=== PATIENT | male | born 1965 | race African-American/Black ===

== ENCOUNTER 2016-07-08 17:43 | Emergency (ER) | payer MEDICAID ==
[2016-07-08] MEDS ORDERED: NS 0.9% 1000 ML* 1,000 ML IV ONE (18:23)
[2016-07-08] MEDS ORDERED: levETIRAcetam IV* 500 MG in NS 0.9% 100 ML* 100 ML IVPB ONE (18:54)
[2016-07-08 19:27] LABS: ALT 19 U/L (7-52); Albumin 4.6 g/dL (3.2-5.2); Alkaline Phosphatase 75 U/L (34-104); Blood Urea Nitrogen 12 mg/dL (6-24); Calcium 9.6 mg/dL (8.6-10.3); Chloride 103 mmol/L (101-111); EGFR African American 82.4 (>60); EGFR Non-African American 64.1 (>60); Glucose 115 mg/dL (70-100); Sodium 138 mmol/L (133-145); Total Protein 7.6 g/dL (6.4-8.9)
[2016-07-08 19:28] LABS: CO2 Carbon Dioxide 14 mmol/L (22-32)
[2016-07-08] MEDS ORDERED: NS 0.9% 1000 ML* 2,000 ML IV ONE (19:29)
[2016-07-08 19:50] LABS: Hematocrit 50 % (42-52); Hemoglobin 16.4 g/dl (14.0-18.0); Mean Corpuscular HGB Conc 33 g/dl (31-36); Mean Corpuscular Hemoglobin 32 pg (27-31); Mean Corpuscular Volume 98 fL (80-94); Mean Platelet Volume 9 um3 (7.4-10.4); Red Blood Count 5.12 10^6/ul (4.0-5.4); Red Cell Distribution Width 14 % (10.5-15); White Blood Count 14.4 10^3/ul (3.5-10.8)
[2016-07-08 19:54] LABS: Add Diff/Slide Review? Slide Review Added; Comments Flag Yes
--- NOTE | 2016-07-08 20:20 | ED ---
Devin Carreno Adam, scribed for Solo Pena MD on 07/08/16 at 1819 . Neurological HPI - HPI Summary HPI Summary: Pt is a 51 year old male who reports having 2 seizures today. Between 14:00 and 15:00 he states that he fell in his apartment and believes it was a seizure. Afterwards he was riding on the bus and he states that he had a second seizure. Pt also c/o a LUEVANO which does not typically occur after he has a seizure. He also c/o chronic pain in his neck and lower back which have been causing him difficulty sleeping. Pt takes Keppra (1500 mg in the AM), methotrexate, and Humira for arthritis. - History of Current Complaint Chief Complaint: ED Stated Complaint: SEIZURES Time Seen by Provider: 07/08/16 18:12 Hx Obtained From: Patient Onset/Duration: Sudden Onset, Started hours ago, Resolved Timing: Intermittent Episodes Lasting: - Seconds Onset Severity: Moderate Current Severity: None Number of Seizures: 2 Pain Intensity: 8 Pain Scale Used: 0-10 Numeric Seizure Character: Generalized Aggravating: Unknown Alleviating: Spontanious Resolution Associated Signs and Symptoms: Positive: Headache, Seizure Related Hx: Seizure - Allergy/Home Medications Allergies/Adverse Reactions: Allergies Allergy/AdvReac Type Severity Reaction Status Date / Time Pregabalin [From Lyrica] Allergy Intermediate Headache, Verified 04/17/16 18:15 Heart palpitations Penicillins [PCN] Allergy Unknown Unknown Verified 04/17/16 18:15 Reaction Details PMH/Surg Hx/FS Hx/Imm Hx Endocrine/Hematology History: Denies: Hx Anticoagulant Therapy, Hx Bone Marrow Disease, Hx Diabetes, Hx Sickle Cell Disease, Hx Thyroid Disease, Hx Anemia, Hx Unexplained Bleeding Cardiovascular History: Denies: Hx Hypertension, Hx Pacemaker/ICD Respiratory History: Denies: Hx Asthma, Hx Chronic Obstructive Pulmonary Disease (COPD), Hx Pulmonary Embolism, Hx Sleep Apnea GI History: Reports: Other GI Disorders - 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, SURGERY 03/2010, [facility] Denies: Hx Jaundice, Hx Ulcer History: Reports: Other Problems/Disorders - S/P RIGHT NEPHRECTOMY 06/09/05 - LEFT KIDNEY FUNCTIONS WELL Denies: Hx Renal Disease Musculoskeletal History: Reports: Hx Arthritis, Hx Back Problems, Hx Orthopedic Injury - 2009 C7 neck fx, Other Musculoskeletal History - ankylosing spondylitis , DRAINED FLUID IN LEFT KNEE IN 09/2014 AT [facility] [place] ER Denies: Hx Bursitis, Hx Tendonitis Sensory History: Reports: Hx Contacts or Glasses, Hx Vision Problem Denies: Hx Hearing Aid Opthamlomology History: Reports: Hx Contacts or Glasses, Hx Vision Problem Neurological History: Reports: Hx Seizures - SINCE October- UNDER CONTROL WITH MEDICATION, 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 metastatic liver tumor. w/ radioablation Hx Chemotherapy: No Hx Radiation Therapy: No - Surgical History Surgery Procedure, Year, and Place: C7-FX WITH TITANIUM PLATE. 2005- [facility] nephrectomy for renal cell [place], 2008-[place] benign pulmonary nodule, 2009 -[facility] (right) cervical median branch block, 2009- [facility] metastatic liver tumor. w/radioablation Hx Anesthesia Reactions: No - Immunization History Date of Tetanus Vaccine: unk Infectious Disease History: Denies: Hx Hepatitis, Hx Human Immunodeficiency Virus (HIV), Traveled Outside the in Last 30 Days - Family History Known Family History: Positive: Hypertension, Renal Disease - Renal transplant ( father) - Social History Occupation: Disabled Lives: Alone Alcohol Use: Rare Hx Substance Use: Yes Substance Use Comment - Amount & Last Used: MORPHINE, XANAX Hx Tobacco Use: No Smoking Status (MU): Never Smoked Tobacco Have You Smoked in the Last Year: No Review of Systems Constitutional: Negative Negative: Fever Positive: Myalgia - Lower back, neck Neurological: Other - Seizures Positive: Headache All Other Systems Reviewed And Are Negative: Yes Physical Exam Triage Information Reviewed: Yes Vital Signs On Initial Exam: Initial Vitals Temp Pulse Resp BP Pulse Ox 97.2 F 75 10 135/50 98 07/08/16 17:58 07/08/16 17:58 07/08/16 17:58 07/08/16 17:58 07/08/16 17:58 Vital Signs Reviewed: Yes Appearance: Positive: Well-Appearing, No Pain Distress Skin: Positive: Warm, Skin Color Reflects Adequate Perfusion, Dry Head/Face: Positive: Normal Head/Face Inspection Eyes: Positive: Normal ENT: Positive: Normal ENT inspection Neck: Positive: Supple, Nontender Respiratory/Lung Sounds: Positive: Clear to Auscultation, Breath Sounds Present Cardiovascular: Positive: RRR Abdomen Description: Positive: Nontender, Soft Bowel Sounds: Positive: Present Musculoskeletal: Positive: Normal Neurological: Positive: Normal Psychiatric: Positive: Normal, Affect/Mood Appropriate Diagnostics - Vital Signs Vital Signs Temp Pulse Resp BP Pulse Ox 07/08/16 17:58 97.2 F 75 10 135/50 98 - Laboratory Lab Results: Lab Results 07/08/16 07/08/16 07/08/16 Range/Units 19:03 19:03 19:03 WBC 14.4 H (3.5-10.8) 10^3/ul RBC 5.12 (4.0-5.4) 10^6/ul Hgb 16.4 (14.0-18.0) g/dl Hct 50 (42-52) % MCV 98 H (80-94) fL MCH 32 H (27-31) pg MCHC 33 (31-36) g/dl RDW 14 (10.5-15) % Plt Count 255 (150-450) 10^3/ul MPV 9 (7.4-10.4) um3 Neut % (Auto) 74.1 (38-83) % Lymph % (Auto) 17.6 L (25-47) % [place] % (Auto) 7.8 (1-9) % Eos % (Auto) 0.1 (0-6) % Baso % (Auto) 0.4 (0-2) % Absolute Neuts (auto) 10.6 H (1.5-7.7) 10^3/ul Absolute Lymphs (auto) 2.5 (1.0-4.8) 10^3/ul Absolute Monos (auto) 1.1 H (0-0.8) 10^3/ul Absolute Eos (auto) 0 (0-0.6) 10^3/ul Absolute Basos (auto) 0.1 (0-0.2) 10^3/ul Absolute Nucleated RBC 0.01 10^3/ul Nucleated RBC % 0.1 Sodium 138 (133-145) mmol/L Potassium TNP Chloride 103 (101-111) mmol/L Carbon Dioxide 14 L* (22-32) mmol/L Anion Gap TNP BUN 12 (6-24) mg/dL Creatinine 1.20 H (0.67-1.17) mg/dL Est GFR ( Amer) 82.4 (>60) Est GFR (Non-Af Amer) 64.1 (>60) BUN/Creatinine Ratio 10.0 (8-20) Glucose 115 H (70-100) mg/dL Lactic Acid 12.0 H* (0.5-2.0) mmol/L Calcium 9.6 (8.6-10.3) mg/dL Magnesium TNP Total Bilirubin 0.80 (0.2-1.0) mg/dL AST TNP ALT 19 (7-52) U/L Alkaline Phosphatase 75 (34-104) U/L Total Protein 7.6 (6.4-8.9) g/dL Albumin 4.6 (3.2-5.2) g/dL Globulin 3.0 (2-4) g/dL Albumin/Globulin Ratio 1.5 (1-3) Result Diagrams: 07/08/16 19:03 07/08/16 19:03 Lab Statement: Any lab studies that have been ordered have been reviewed, and results considered in the medical decision making process. - Additional Comments Diagnostic Additional Comments: Carbon Dioxide - 14 Re-Evaluation - Re-Evaluation First Eval Re-Evaluation Time: 18:48 - Pt having a seizure in room. Course/Dx - Course Course Of Treatment: Mr. Chapman presented in a similar fashion to past presentations. He has not been gettin good sleep secondary to his chronic pain and he had possible two breakthru seizures today. He reports taking his 1500 Mgs of Keppra BID as prescribed. While he was being W/U'd, he had another generalized tonic clonic seizure witness by myself. Dr. Beard was contacted and knows the patient. He recommended 500 of IV Keppra now and observation. If he doesn't seize again, he will be D/C'd with the recommendation to increase his Keppra to 1500 AM and 2000 PM. - Diagnoses Provider Diagnoses: Breakthrough seizure - Physician Notifications Discussed Care of Patient With: Dr. Alejandro Time Discussed With Above Provider: 20:30 - change of shift Discharge - Discharge Plan Condition: Stable Disposition: HOME The documentation as recorded by the Devin barclay Adam accurately reflects the service I personally performed and the decisions made by me, Solo Pena MD.
[2016-07-08] MEDS ORDERED: Ondansetron INJ* 2 MG/ML VIAL IV ONE (20:25)
[2016-07-08] MEDS ORDERED: Ondansetron INJ* 2 MG/ML VIAL ONE ×2 (20:35)
[2016-07-08] MEDS ORDERED: Acetaminophen TAB* 325 MG PO ONE (21:21)
[2016-07-08] MEDS: HYDROmorphone INJ* 1 MG/ML CARPUJECT SYRINGE IV ONE (23:15)
[2016-07-09] MEDS: HYDROmorphone INJ* 1 MG/ML CARPUJECT SYRINGE IV ONE (00:05)
[2016-07-09] MEDS ORDERED: Acetaminophen TAB* 325 MG ONE ×2 (02:26)
[2016-07-09 04:03] VITALS: BP 151/61
== END 2016-07-09 04:02 | disposition home or self-care (01) ==
LOC: ED 17:43
DX: G40.909 Epilepsy, unspecified, not intractable, without status epilepticus (principal); M54.5 Low back pain; M54.2 Cervicalgia; G89.29 Other chronic pain; Z85.528 Personal history of other malignant neoplasm of kidney; Z85.05 Personal history of malignant neoplasm of liver
CPT/HCPCS: 36415; 80053; 80177; 83605; 85025; 96360; 96374; 96375; 99283; A9270-GY; J1170; J2405

== ENCOUNTER 2017-01-07 17:27 | Emergency (ER) | payer MEDICAID ==
[2017-01-07] MEDS ORDERED: NS 0.9% 1000 ML* 1,000 ML IV ONE (17:56)
[2017-01-07 19:09] VITALS: BP 141/80
[2017-01-07 19:12] LABS: Hematocrit 48 % (42-52); Hemoglobin 16.6 g/dl (14.0-18.0); Mean Corpuscular HGB Conc 34 g/dl (31-36); Mean Corpuscular Hemoglobin 34 pg (27-31); Mean Corpuscular Volume 99 fL (80-94); Mean Platelet Volume 8 um3 (7.4-10.4); Red Blood Count 4.85 10^6/ul (4.0-5.4); Red Cell Distribution Width 15 % (10.5-15); White Blood Count 10.8 10^3/ul (3.5-10.8)
[2017-01-07] MEDS ORDERED: Ondansetron INJ* 2 MG/ML VIAL IV ONE (19:12)
[2017-01-07] MEDS ORDERED: HYDROmorphone* 1 MG/ML 1 ML SYR IV ONE (19:12)
[2017-01-07 19:49] LABS: Albumin 4.6 g/dL (3.2-5.2); BUN/Creatinine Ratio 11.7 (8-20); Calcium 9.3 mg/dL (8.6-10.3); EGFR African American 82.4 (>60); EGFR Non-African American 64.1 (>60); Globulin 2.7 g/dL (2-4); Magnesium 2.2 mg/dL (1.9-2.7); Total Bilirubin 0.8 mg/dL (0.2-1.0); Total Protein 7.3 g/dL (6.4-8.9)
[2017-01-07] MEDS ORDERED: ALPRAZolam TAB* 0.5 MG PO ONE ×2 (20:06→20:17)
--- NOTE | 2017-01-09 20:46 | ED ---
I, Seth,Soha, scribed for Solo Pena MD on 01/07/17 at 1912 . Neurological HPI - HPI Summary HPI Summary: This 51 y/o male presents to ED after having a witnessed seizure at a restoration meeting. Pt states that he has not been sleeping well, and only slept about 3 hours last night. PMHx is significant for known temporal lobe seizure, which is controlled with Keppra, as well as complex cervical fracture s/p fusion. Pt reports that he was sitting at time of onset and fell out of chair during the episode. Pt is currently complaining of right forehead pain and neck/back pain. He is c Pt is currently on mirtazapine, alprazolam, tizanidine, methotrexate, humira. 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 - History of Current Complaint Chief Complaint: EDSeizure Stated Complaint: SEIZURES Time Seen by Provider: 01/07/17 18:08 Hx Obtained From: Patient, Medical Records Onset/Duration: Sudden Onset Timing: Intermittent Episodes Lasting: Pain Intensity: 8 Pain Scale Used: 0-10 Numeric Syncope Context: Witnessed Frequency: Episodes x___ - 1 Aggravating: Sleep Deprivation Alleviating: Spontanious Resolution - Allergy/Home Medications Allergies/Adverse Reactions: Allergies Allergy/AdvReac Type Severity Reaction Status Date / Time Pregabalin [From Lyrica] Allergy Intermediate Headache, Verified 04/17/16 18:15 Heart palpitations Penicillins [PCN] Allergy Unknown Unknown Verified 04/17/16 18:15 Reaction Details PMH/Surg Hx/FS Hx/Imm Hx Endocrine/Hematology History: Denies: Hx Anticoagulant Therapy, Hx Bone Marrow Disease, Hx Diabetes, Hx Sickle Cell Disease, Hx Thyroid Disease, Hx Anemia, Hx Unexplained Bleeding Cardiovascular History: Denies: Hx Hypertension, Hx Pacemaker/ICD Respiratory History: Denies: Hx Asthma, Hx Chronic Obstructive Pulmonary Disease (COPD), Hx Pulmonary Embolism, Hx Sleep Apnea GI History: Reports: Other GI Disorders - 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, SURGERY 03/2010, [facility] Denies: Hx Jaundice, Hx Ulcer History: Reports: Other Problems/Disorders - S/P RIGHT NEPHRECTOMY 06/09/05 - LEFT KIDNEY FUNCTIONS WELL Denies: Hx Renal Disease Musculoskeletal History: Reports: Hx Arthritis, Hx Back Problems, Hx Orthopedic Injury - 2009 C7 neck fx, Other Musculoskeletal History - ankylosing spondylitis , DRAINED FLUID IN LEFT KNEE IN 09/2014 AT [facility] [place] ER Denies: Hx Bursitis, Hx Tendonitis Sensory History: Reports: Hx Contacts or Glasses, Hx Vision Problem Denies: Hx Hearing Aid Opthamlomology History: Reports: Hx Contacts or Glasses, Hx Vision Problem Neurological History: Reports: Hx Seizures - SINCE October- UNDER CONTROL WITH MEDICATION, 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 C2-C7 fusion done, Other Neuro Impairments/Disorders - 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 w/ radioablation Hx Chemotherapy: No Hx Radiation Therapy: No - Surgical History Surgery Procedure, Year, and Place: C7-FX WITH TITANIUM PLATE. 2005- [facility] nephrectomy for renal cell CA, 2008-[place] benign pulmonary nodule, 2009 -[facility] (right) cervical median branch block, 2009- [facility] metastatic liver tumor. w/radioablation Hx Anesthesia Reactions: No - Immunization History Date of Tetanus Vaccine: unk Infectious Disease History: No Infectious Disease History: Denies: Hx Hepatitis, Hx Human Immunodeficiency Virus (HIV), Traveled Outside the in Last 30 Days - Family History Known Family History: Positive: Hypertension, Renal Disease - Renal transplant ( father) - Social History Alcohol Use: Rare Hx Substance Use: Yes Substance Use Type: Reports: None Substance Use Comment - Amount & Last Used: MORPHINE, XANAX Hx Tobacco Use: No Smoking Status (MU): Never Smoked Tobacco Have You Smoked in the Last Year: No Review of Systems Negative: Fever Positive: Other - Right forehead pain and neck/back pain Neurological: Other - Positive for seizure All Other Systems Reviewed And Are Negative: Yes Physical Exam Triage Information Reviewed: Yes Vital Signs On Initial Exam: Initial Vitals Temp Pulse Resp BP Pulse Ox 99.5 F 87 16 138/83 94 01/07/17 17:32 01/07/17 17:32 01/07/17 17:32 01/07/17 17:32 01/07/17 17:32 Vital Signs Reviewed: Yes Appearance: Positive: Well-Appearing, No Pain Distress Skin: Positive: Warm, Skin Color Reflects Adequate Perfusion, Dry Head/Face: Positive: Normal Head/Face Inspection Eyes: Positive: Normal Neck: Positive: Supple, Nontender Respiratory/Lung Sounds: Positive: Clear to Auscultation, Breath Sounds Present Cardiovascular: Positive: Normal Abdomen Description: Positive: Nontender, Soft Musculoskeletal: Positive: Normal Neurological: Positive: Other - slow speech Psychiatric: Positive: Affect/Mood Appropriate AVPU Assessment: Alert - Teresa Coma Scale Coma Scale Total: 15 Diagnostics - Vital Signs Vital Signs Temp Pulse Resp BP Pulse Ox 01/07/17 17:32 99.5 F 87 16 138/83 94 - Laboratory Lab Results: Lab Results 01/07/17 01/07/17 01/07/17 Range/Units 17:57 18:55 18:55 WBC 10.8 (3.5-10.8) 10^3/ul RBC 4.85 (4.0-5.4) 10^6/ul Hgb 16.6 (14.0-18.0) g/dl Hct 48 (42-52) % MCV 99 H (80-94) fL MCH 34 H (27-31) pg MCHC 34 (31-36) g/dl RDW 15 (10.5-15) % Plt Count 172 (150-450) 10^3/ul MPV 8 (7.4-10.4) um3 Neut % (Auto) 83.5 H (38-83) % Lymph % (Auto) 10.2 L (25-47) % [place]ady % (Auto) 5.7 (1-9) % Eos % (Auto) 0.2 (0-6) % Baso % (Auto) 0.4 (0-2) % Absolute Neuts (auto) 9.0 H (1.5-7.7) 10^3/ul Absolute Lymphs (auto) 1.1 (1.0-4.8) 10^3/ul Absolute Monos (auto) 0.6 (0-0.8) 10^3/ul Absolute Eos (auto) 0 (0-0.6) 10^3/ul Absolute Basos (auto) 0 (0-0.2) 10^3/ul Absolute Nucleated RBC 0 10^3/ul Nucleated RBC % 0 INR (Anticoag Therapy) 0.91 (0.89-1.11) Sodium (133-145) mmol/L Potassium (3.5-5.0) mmol/L Chloride (101-111) mmol/L Carbon Dioxide (22-32) mmol/L Anion Gap (2-11) mmol/L BUN (6-24) mg/dL Creatinine (0.67-1.17) mg/dL Est GFR ( Amer) (>60) Est GFR (Non-Af Amer) (>60) BUN/Creatinine Ratio (8-20) Glucose (70-100) mg/dL Lactic Acid (0.5-2.0) mmol/L Calcium (8.6-10.3) mg/dL Magnesium (1.9-2.7) mg/dL Total Bilirubin (0.2-1.0) mg/dL AST (13-39) U/L ALT (7-52) U/L Alkaline Phosphatase (34-104) U/L Total Protein (6.4-8.9) g/dL Albumin (3.2-5.2) g/dL Globulin (2-4) g/dL Albumin/Globulin Ratio (1-3) Levetiracetam 39.2 mcg/mL 01/07/17 01/07/17 Range/Units 18:55 18:55 WBC (3.5-10.8) 10^3/ul RBC (4.0-5.4) 10^6/ul Hgb (14.0-18.0) g/dl Hct (42-52) % MCV (80-94) fL MCH (27-31) pg MCHC (31-36) g/dl RDW (10.5-15) % Plt Count (150-450) 10^3/ul MPV (7.4-10.4) um3 Neut % (Auto) (38-83) % Lymph % (Auto) (25-47) % [place]ady % (Auto) (1-9) % Eos % (Auto) (0-6) % Baso % (Auto) (0-2) % Absolute Neuts (auto) (1.5-7.7) 10^3/ul Absolute Lymphs (auto) (1.0-4.8) 10^3/ul Absolute Monos (auto) (0-0.8) 10^3/ul Absolute Eos (auto) (0-0.6) 10^3/ul Absolute Basos (auto) (0-0.2) 10^3/ul Absolute Nucleated RBC 10^3/ul Nucleated RBC % INR (Anticoag Therapy) (0.89-1.11) Sodium 137 (133-145) mmol/L Potassium 4.0 (3.5-5.0) mmol/L Chloride 101 (101-111) mmol/L Carbon Dioxide 30 (22-32) mmol/L Anion Gap 6 (2-11) mmol/L BUN 14 (6-24) mg/dL Creatinine 1.20 H (0.67-1.17) mg/dL Est GFR ( Amer) 82.4 (>60) Est GFR (Non-Af Amer) 64.1 (>60) BUN/Creatinine Ratio 11.7 (8-20) Glucose 119 H (70-100) mg/dL Lactic Acid 2.3 H* (0.5-2.0) mmol/L Calcium 9.3 (8.6-10.3) mg/dL Magnesium 2.2 (1.9-2.7) mg/dL Total Bilirubin 0.80 (0.2-1.0) mg/dL AST 22 (13-39) U/L ALT 17 (7-52) U/L Alkaline Phosphatase 61 (34-104) U/L Total Protein 7.3 (6.4-8.9) g/dL Albumin 4.6 (3.2-5.2) g/dL Globulin 2.7 (2-4) g/dL Albumin/Globulin Ratio 1.7 (1-3) Levetiracetam mcg/mL Result Diagrams: 01/07/17 18:55 01/07/17 18:55 Lab Statement: Any lab studies that have been ordered have been reviewed, and results considered in the medical decision making process. Course/Dx - Course Course Of Treatment: There was no more seizure activity here and I recommended F /U. His W/U was normal. - Diagnoses Provider Diagnoses: Seizure Discharge - Discharge Plan Condition: Stable Disposition: HOME Patient Education Materials: Recurrent Seizures in Adults (ED) Referrals: Dannielle Jimenes MD [Primary Care Provider] - 2 Days The documentation as recorded by the Seth barclay Soohyun accurately reflects the service I personally performed and the decisions made by me, Solo Pena MD.
== END 2017-01-07 20:20 | disposition home or self-care (01) ==
LOC: ED 17:27
DX: R56.9 Unspecified convulsions (principal); R51 Headache; M54.2 Cervicalgia; M54.9 Dorsalgia, unspecified; Z85.528 Personal history of other malignant neoplasm of kidney; Z85.05 Personal history of malignant neoplasm of liver; Z88.0 Allergy status to penicillin
CPT/HCPCS: 36415; 80053; 80177; 83605; 83735; 85025; 85610; 96361; 96374; 96375; 99282; A9270-GY; J1170; J2405

== ENCOUNTER 2017-03-18 15:22 | Inpatient (IN) | payer MEDICAID ==
[2017-03-18] MEDS ORDERED: Ketorolac INJ* 30 MG/ML 1 ML VIAL IV PUSH ONE (16:44)
--- NOTE | 2017-03-18 17:23 | RAD ---
Indication: Atraumatic LEFT ankle and foot pain and swelling. History of ankylosing spondylitis. Comparison: No relevant prior exams available on the [facility] PACS for comparison. Technique: Portable AP and crosstable lateral views LEFT foot. AP, mortise, and crosstable lateral views LEFT ankle. Report: Grossly normal articular alignment at the LEFT ankle and foot with obliquity on the lateral view of the foot limiting assessment. No fracture or radiographic stigmata of stress reaction. Mild osteophytosis and subchondral cystic change at the interphalangeal joint of the great toe. Minimal osteophytosis at the first metatarsal phalangeal joint. Negative for osseous erosions or soft tissue calcifications. Unremarkable soft tissue contours. 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
--- NOTE | 2017-03-18 17:23 | RAD ---
Indication: Atraumatic LEFT ankle and foot pain and swelling. History of ankylosing spondylitis. Comparison: No relevant prior exams available on the [facility] PACS for comparison. Technique: Portable AP and crosstable lateral views LEFT foot. AP, mortise, and crosstable lateral views LEFT ankle. Report: Grossly normal articular alignment at the LEFT ankle and foot with obliquity on the lateral view of the foot limiting assessment. No fracture or radiographic stigmata of stress reaction. Mild osteophytosis and subchondral cystic change at the interphalangeal joint of the great toe. Minimal osteophytosis at the first metatarsal phalangeal joint. Negative for osseous erosions or soft tissue calcifications. Unremarkable soft tissue contours. 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
[2017-03-18] MEDS ORDERED: Ketorolac INJ* 60 MG/2 ML VIAL IM ONE (17:56)
--- NOTE | 2017-03-18 19:12 | RAD ---
Indication: Pain post fall. Abrasion to the forehead. Comparison: January 13, 2013 CT Technique: Noncontrast CT vertex of skull through foramen magnum. Report: The sulci, ventricles, and basal cisterns are normal for age. Shah matter white matter differentiation is preserved without evidence for edema. No intra or extra axial hemorrhage, mass, or fluid collection detected. Unremarkable visualized orbital contents. Unremarkable calvarium and skull base. Unremarkable scalp. The visualized paranasal sinuses and mastoid air spaces are clear. IMPRESSION: No CT evidence for traumatic brain injury. Negative exam.
[2017-03-18 19:29] LABS: Hematocrit 45 % (42-52); Hemoglobin 15.8 g/dl (14.0-18.0); Mean Corpuscular HGB Conc 35 g/dl (31-36); Mean Corpuscular Hemoglobin 34 pg (27-31); Mean Corpuscular Volume 96 fL (80-94); Mean Platelet Volume 8 um3 (7.4-10.4); Red Blood Count 4.69 10^6/ul (4.0-5.4); Red Cell Distribution Width 14 % (10.5-15); White Blood Count 21.3 10^3/ul (3.5-10.8)
[2017-03-18] MEDS ORDERED: levETIRAcetam TAB* 500 MG PO ONE (19:38)
[2017-03-18 19:45] LABS: BUN/Creatinine Ratio 9.5 (8-20); C Reactive Protein 357.2 mg/L (< 5.00); EGFR Non-African American 46.7 (>60); Potassium 3.9 mmol/L (3.5-5.0); Total Bilirubin 2.1 mg/dL (0.2-1.0); Troponin I 0.03 ng/mL (<0.04)
[2017-03-18 20:10] LABS: Erythrocyte Sed Rate 24 mm/Hr (0-20)
[2017-03-18] MEDS ORDERED: Vancomycin(*) 1,500 MG in NS 0.9% 250 ML* 250 ML IVPB ONE (20:10)
[2017-03-18] MEDS: NS 0.9% 1000 ML* 2,000 ML IV ONE (20:52)
[2017-03-18] MEDS ORDERED: Morphine INJ* 4 MG/ML 1 ML CARPUJECT IV ONE (20:53)
[2017-03-18] MEDS ORDERED: Metoclopramide IV* 5 MG/ML 2 ML VIAL IV SLOW PU ONE (20:53)
--- NOTE | 2017-03-18 21:04 | HP ---
H&P (Free Text) History and Physical: PCP: Chaz Jimenes MD Rheumatology: Dr Martinez Date/Time: 03/18/20172104 CC: L foot pain HPI: Mr Chapman is a 51YO male HX ankylosing spondylitis on adalimumab & methotrexate who reports being awoken from sleep Friday due to L foot pain. The pain has progressed with the foot becoming somewhat darker and reddened. Friday when he went to stand he experienced sudden worsening of sharp pain causing him to fall. He was then generally weak and unable to get up for ~45 minutes after which he called EMS and was transported to [facility] [place]. He cannot commit to the presence or absence of F/C or sweats. He denies chest pain , SOB, N/V, focal W/N/T, or change in severity or character of his chronic ankylosing spondylitis pain. During this H&P he was sitting on the edge of the bed continuously moving his L foot and ankle as this made the pain more tolerable. PMedHx ankylosing spondylitis epilepsy insomnia HX renal cell CA s/p nephrectomy C7 FX 2nd seizure/fall s/p fusion Ambulatory Orders levETIRAcetam TAB* [Keppra TAB*] 1,500 mg PO QAM 01/29/16 ALPRAZolam TAB* [Xanax TAB*] 4 - 5 mg PO BEDTIME 03/18/17 Adalimumab (NF) [Humira Pen (NF)] 40 mg SUBCUT Q14D 03/18/17 Folic Acid TAB* [Folvite TAB*] 1 mg PO QAM 03/18/17 Gabapentin CAP(*) [Neurontin 100 mg CAP(*)] 600 mg PO BEDTIME 03/18/17 Methotrexate TAB* 12.5 mg PO WEEKLY 03/18/17 Mirtazapine TAB* [Remeron TAB*] 15 mg PO BEDTIME 03/18/17 Naltrexone (NF) 50 mg PO QAM 03/18/17 Suvorexant [Belsomra] 20 mg PO BEDTIME 03/18/17 levETIRAcetam TAB* [Keppra TAB*] 2,000 mg PO QPM 03/18/17 tiZANidine TAB* [Zanaflex TAB*] 12 mg PO BEDTIME 03/18/17 Allergies Pregabalin [From Lyrica] Allergy (Intermediate, Verified 04/17/16 18:15) Headache, Heart palpitations anxiety Penicillins [PCN] Allergy (Unknown, Verified 04/17/16 18:15) Unknown Reaction Details PSurgHx nephrectomy cervical fusion lumbosacral fusion SocHx: denies tobacco and recreational drugs, minimal alcohol; 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; full code status FamHx: reviewed and non-contributory to current presentation ROS: as above, otherwise reviewed and all were negative vitals: Vital Signs Temp 38.3 C 03/18/17 20:00 Pulse 122 03/18/17 21:00 Resp 20 03/18/17 21:00 BP 125/71 03/18/17 21:00 Pulse Ox 97 03/18/17 21:00 Intake & Output 03/17/17 03/18/17 03/18/17 23:59 11:59 23:59 Weight 95.254 kg Constitutional: NAD, normally developed, overweight black male HEENM: atraumatic; sclera/conjunctiva: non-icteric/clear; hearing: clinically intact; oropharynx: clear, mucosa tacky Neck: soft tissue: non-tender; thyroid: normal Pulmonary: clear to auscultation bilaterally, good aeration, no accessory muscle use CV: TR/RR, normal S1S2, no carotid bruit, no jugular venous distention, 2+ B DP/ PT, trace L pedal edema Abdominal: soft, non-distended, non-tender, no rebound/guarding/rigidity, normoactive bowel sounds, no hepatosplenomegaly or masses, no costovertebral angle tenderness Musculoskeletal: general: grossly intact, no palpable tenderness in the L foot or calf; currently no change in chronic bony spine pain Integumental: L foot is slightly darker in color and mildly erythematous, ROM of the ankle & toes is intact, no ulcers, open wounds, or fissures noted, the L foot is slightly warm relative to the R with trace edema, capillary refill is < 2s Psychiatric orientation: AA&O to PPTS affect: mild/mod pain mood: cooperative, calm eye contact: fair to poor content: reliable responses: timely insight: fair to good Testing: Lab Results 03/18/17 03/18/17 Range/Units 19:15 19:15 WBC 21.3 H (3.5-10.8) 10^3/ul RBC 4.69 (4.0-5.4) 10^6/ul Hgb 15.8 (14.0-18.0) g/dl Hct 45 (42-52) % MCV 96 H (80-94) fL MCH 34 H (27-31) pg MCHC 35 (31-36) g/dl RDW 14 (10.5-15) % Plt Count 124 L (150-450) 10^3/ul MPV 8 (7.4-10.4) um3 ESR 24 H (0-20) mm/Hr Sodium 134 (133-145) mmol/L Potassium 3.9 (3.5-5.0) mmol/L Chloride 101 (101-111) mmol/L Carbon Dioxide 26 (22-32) mmol/L Anion Gap 7 (2-11) mmol/L BUN 15 (6-24) mg/dL Creatinine 1.58 H (0.67-1.17) mg/dL Est GFR ( Amer) 60.0 (>60) Est GFR (Non-Af Amer) 46.7 (>60) BUN/Creatinine Ratio 9.5 (8-20) Glucose 105 H (70-100) mg/dL Uric Acid 6.0 (4.4-7.6) mg/dL Calcium 9.0 (8.6-10.3) mg/dL Total Bilirubin 2.10 H (0.2-1.0) mg/dL AST 18 (13-39) U/L ALT 13 (7-52) U/L Alkaline Phosphatase 58 (34-104) U/L Total Creatine Kinase 228 H (10-223) U/L Troponin I 0.03 (<0.04) ng/mL C-Reactive Protein 357.20 H (< 5.00) mg/L Total Protein 7.0 (6.4-8.9) g/dL Albumin 4.0 (3.2-5.2) g/dL Globulin 3.0 (2-4) g/dL Albumin/Globulin Ratio 1.3 (1-3) 2vCXR, personally reviewed: no acute process CT brain WO, personally reviewed: IMPRESSION: No CT evidence for traumatic brain injury. Negative exam. XRY L foot: IMPRESSION: Mild osteoarthritis at the first metatarsal phalangeal joint and interphalangeal joint of the great toe. XRY L ankle: IMPRESSION: Mild osteoarthritis at the first metatarsal phalangeal joint and interphalangeal joint of the great toe. Impression: 51M HX ankylosing spondylitis on adalimumab & methotrexate presenting with sepsis from suspected unlocalized L foot infection DIAGNOSIS & PLAN Primary sepsis 2nd ? source, suspected L foot infection : IV vancomycin & ceftriaxone : IVFs : blood CXs : obtain 2vCXR & UA : pain control : supportive care DONAL : HX renal cell CA s/p nephrectomy : IVFs, trend Secondary ankylosing spondylitis : hold adalimumab & methotrexte in setting of sepsis : hold naltrexone as it will be difficult to control his pain if continuing : Dr Martinez consulted by Alexandra Solitario MD ED; will follow epilepsy : continue levetiracetam insomnia 2nd ankylosing spondylitis pain : continue alprazolam at 4mg HS : continue gabapentin at 600mg HS : continue mirtazapine 15mg HS : continue suvorexant 20mg HS : continue tizanidine 12mg HS HX C7 FX : 2nd seizure/fall s/p fusion : no acute issues clinically Admission Rational: inpatient for sepsis ? source requiring IV ABX, IVFs, & further evaluation to determine source DVTp: heparin SQ Code Status: full HCP: friend, Yamil López [phone]
[2017-03-18] MEDS ORDERED: NS 0.9% 250 ML* 0 ML ONE (21:50)
[2017-03-18] MEDS ORDERED: Acetaminophen TAB* 325 MG PO ONE (22:26)
[2017-03-19] MEDS: tiZANidine TAB* 2 MG PO SCH ×2 (00:15→20:28)
[2017-03-19] MEDS: Gabapentin CAP(*) 300 MG PO SCH ×2 (00:18→20:28)
[2017-03-19] MEDS: ALPRAZolam TAB* 0.5 MG PO SCH ×2 (00:18→20:27)
[2017-03-19] MEDS ORDERED: Vancomycin per Pharmacy* NOTE FOLLOW UP SCH (01:00)
[2017-03-19] MEDS: SUVOREXANT 20 MG PO SCH (01:02)
[2017-03-19] MEDS: Mirtazapine TAB* 15 MG PO SCH (01:02)
[2017-03-19 02:58] LABS: Hematocrit 41 % (42-52); Hemoglobin 13.9 g/dl (14.0-18.0); Mean Corpuscular HGB Conc 34 g/dl (31-36); Mean Corpuscular Hemoglobin 34 pg (27-31); Mean Corpuscular Volume 98 fL (80-94); Mean Platelet Volume 8 um3 (7.4-10.4); Red Blood Count 4.12 10^6/ul (4.0-5.4); Red Cell Distribution Width 14 % (10.5-15); White Blood Count 17.8 10^3/ul (3.5-10.8)
[2017-03-19 03:03] LABS: Add Diff/Slide Review? Manual Diff Added; Comments Flag Yes
[2017-03-19] MEDS: NS 0.9% 1000 ML* 1,000 ML IV SCH ×4 (03:05→12:52)
[2017-03-19 03:11] LABS: EGFR African American 47.3 (>60); EGFR Non-African American 36.8 (>60)
[2017-03-19 03:48] LABS: Immature Granulocytes 4 % (0-9); Neutrophil % 77 % (38-83); Reactive Lymph % 1 % (0-6)
[2017-03-19 03:51] LABS: Add Path Review? YES
[2017-03-19] MEDS: Phenylephrine INJ* 50 MG in NS 0.9% 250 ML* 245 ML IV SCH (05:49)
--- NOTE | 2017-03-19 06:05 | PN ---
Progress Note - Progress Note Date of Service: 03/19/17 Note: Nursing called early re: hypotension, advised to go ahead and start 2nd 2L bolus ordered earlier. However, this totaling 4L did not improve his BP which remains systolic in the 60-70s. Upon evaluation, Mr Chapman is very drowsy 2nd his sleeping cocktail, but arousable. He continues to report no new problems except the L foot pain. He continue to deny SOB, chest pain, abdominal pain, N/V , or other issues. He has had no narcotics since arriving to the floor. Vital Signs Temp 36.4 C 03/19/17 03:09 Pulse 73 03/19/17 03:09 Resp 20 03/19/17 03:09 BP 70/42 03/19/17 05:10 Pulse Ox 96 03/19/17 03:09 general: overweight black male, somnolent, but arousable w/ reliable answers lungs: clear, normal effort & rate CV: RRR abdomen: SNTND, NABS extremities: W&D, L foot exam remains unimpressive and mildly improved from ED; R knee abrasion healing well, full painless SEAN B hip/ankle/knee Laboratory Results - last 24 hr 03/18/17 03/18/17 03/18/17 19:15 19:15 22:22 WBC 21.3 H RBC 4.69 Hgb 15.8 Hct 45 MCV 96 H MCH 34 H MCHC 35 RDW 14 Plt Count 124 L MPV 8 Immature Gran % (Auto) Neut % (Auto) Lymph % (Auto) Hudsp[place] % (Auto) Eos % (Auto) Baso % (Auto) Absolute Neuts (auto) Absolute Lymphs (auto) Absolute Monos (auto) Absolute Eos (auto) Absolute Basos (auto) Absolute Nucleated RBC Neutrophils % Band Neutrophils % Lymphocytes % Reactive Lymphs % Monocytes % Nucleated RBC % Normal RBC Morphology ESR 24 H INR (Anticoag Therapy) APTT Sodium 134 Potassium 3.9 Chloride 101 Carbon Dioxide 26 Anion Gap 7 BUN 15 Creatinine 1.58 H Est GFR ( Amer) 60.0 Est GFR (Non-Af Amer) 46.7 BUN/Creatinine Ratio 9.5 Glucose 105 H Lactic Acid 1.1 Uric Acid 6.0 Calcium 9.0 Total Bilirubin 2.10 H Direct Bilirubin Indirect Bilirubin AST 18 ALT 13 Alkaline Phosphatase 58 Total Creatine Kinase 228 H Troponin I 0.03 C-Reactive Protein 357.20 H Total Protein 7.0 Albumin 4.0 Globulin 3.0 Albumin/Globulin Ratio 1.3 03/19/17 03/19/17 03/19/17 02:50 02:50 02:50 WBC 17.8 H RBC 4.12 Hgb 13.9 L Hct 41 L MCV 98 H MCH 34 H MCHC 34 RDW 14 Plt Count 100 L MPV 8 Immature Gran % (Auto) 4 Neut % (Auto) Lymph % (Auto) Hudspeth % (Auto) Eos % (Auto) Baso % (Auto) Absolute Neuts (auto) 14.6 H Absolute Lymphs (auto) 1.5 Absolute Monos (auto) 1.6 H Absolute Eos (auto) 0 Absolute Basos (auto) 0.1 Absolute Nucleated RBC 0 Neutrophils % 77 Band Neutrophils % 4 Lymphocytes % 9 L Reactive Lymphs % 1 Monocytes % 9 Nucleated RBC % Normal RBC Morphology Not Reportable ESR INR (Anticoag Therapy) 1.37 H APTT 32.8 Sodium Potassium Chloride Carbon Dioxide Anion Gap BUN 22 Creatinine 1.94 H Est GFR ( Amer) 47.3 Est GFR (Non-Af Amer) 36.8 BUN/Creatinine Ratio Glucose Lactic Acid Uric Acid Calcium Total Bilirubin Direct Bilirubin Indirect Bilirubin AST ALT Alkaline Phosphatase Total Creatine Kinase Troponin I C-Reactive Protein Total Protein Albumin Globulin Albumin/Globulin Ratio 03/19/17 03/19/17 06:00 06:00 WBC 15.3 H RBC 3.90 L Hgb 13.2 L Hct 39 L MCV 99 H MCH 34 H MCHC 34 RDW 14 Plt Count 94 L MPV 8 Immature Gran % (Auto) Neut % (Auto) 83.2 H Lymph % (Auto) 9.6 L Hudspeth % (Auto) 6.7 Eos % (Auto) 0.2 Baso % (Auto) 0.3 Absolute Neuts (auto) 12.7 H Absolute Lymphs (auto) 1.5 Absolute Monos (auto) 1.0 H Absolute Eos (auto) 0 Absolute Basos (auto) 0 Absolute Nucleated RBC 0 Neutrophils % Band Neutrophils % Lymphocytes % Reactive Lymphs % Monocytes % Nucleated RBC % 0 Normal RBC Morphology ESR INR (Anticoag Therapy) APTT Sodium 137 Potassium TNP Chloride 108 Carbon Dioxide 24 Anion Gap 5 BUN 22 Creatinine 1.90 H Est GFR ( Amer) 48.5 Est GFR (Non-Af Amer) 37.7 BUN/Creatinine Ratio 11.6 Glucose 120 H Lactic Acid Uric Acid Calcium 7.2 L Total Bilirubin 1.20 H Direct Bilirubin TNP Indirect Bilirubin TNP AST TNP ALT 10 Alkaline Phosphatase 47 Total Creatine Kinase Troponin I C-Reactive Protein Total Protein 5.4 L Albumin 3.0 L Globulin 2.4 Albumin/Globulin Ratio 1.3 assessment: plan severe septic shock, unknown source in an immunocompromised patient : transfer to ICU : initiate peripheral pressors until central line placed : Elida Caldwell MD ED agreed to place central line : temp garcia to gravity for acute monitoring of renal function in critically- ill patient with solitary kidney and prevention of skin breakdown : CT chest/abd/pelvis & L foot once hemodynamically stabilized : reviewed case elida Valdovinos MD textile engineer station engineer, agreed with above : broaden ABX by changing ceftriaxone to cefepime, renally dosed
[2017-03-19 06:08] LABS: Hematocrit 39 % (42-52); Hemoglobin 13.2 g/dl (14.0-18.0); Mean Corpuscular HGB Conc 34 g/dl (31-36); Mean Corpuscular Hemoglobin 34 pg (27-31); Mean Corpuscular Volume 99 fL (80-94); Mean Platelet Volume 8 um3 (7.4-10.4); Red Cell Distribution Width 14 % (10.5-15); White Blood Count 15.3 10^3/ul (3.5-10.8)
[2017-03-19 06:10] LABS: Add Diff/Slide Review? Slide Review Added; Comments Flag Yes
[2017-03-19] MEDS ORDERED: Cefepime(*) 2 GM in NS 0.9% 50 ML* 50 ML IVPB SCH (06:30)
[2017-03-19 06:33] LABS: ALT 10 U/L (7-52); Alkaline Phosphatase 47 U/L (34-104); BUN/Creatinine Ratio 11.6 (8-20); Blood Urea Nitrogen 22 mg/dL (6-24); CO2 Carbon Dioxide 24 mmol/L (22-32); Calcium 7.2 mg/dL (8.6-10.3); Chloride 108 mmol/L (101-111); EGFR African American 48.5 (>60); EGFR Non-African American 37.7 (>60); Globulin 2.4 g/dL (2-4); Glucose 120 mg/dL (70-100); Sodium 137 mmol/L (133-145); Total Protein 5.4 g/dL (6.4-8.9)
[2017-03-19 06:39] LABS: Anion Gap 5 mmol/L (2-11)
[2017-03-19] MEDS: Cefepime 2 GM in Dextrose(*) 2 GM/50 ML BAG IV SCH (06:55)
--- NOTE | 2017-03-19 07:00 | ED ---
Course/Dx - Course Course Of Treatment: PATIENT HYPOTENSIVE, NEEDING PRESSORS. I WAS ASKED BY THE HOSPITALIST TO PLACE A CENTRAL LINE. STERILE PROCEEDURE USED FOR ULTRASOUND GUIDED RIGHT FEMORAL TRIPLE LUMEN LINE PLACEMENT. ALL LINES FLUSHED. - Diagnoses Provider Diagnoses: Encounter for central line placement
[2017-03-19 07:28] LABS: Urine Bacteria 1+ (Absent); Urine Bilirubin Negative (Negative); Urine Glucose Negative (Negative); Urine Nitrite Negative (Negative)
--- NOTE | 2017-03-19 07:56 | RAD ---
Indication: Sepsis. 2 views of the chest including dual energy PA views demonstrate no mediastinal shift. Heart is of normal size and configuration. Lung hargrove are clear. No changes noted since January 13, 2013. IMPRESSION: No active cardiopulmonary disease is noted.
[2017-03-19] MEDS ORDERED: cefTRIAXone VIAL(*) 1,000 MG in NS 0.9% 50 ML* 50 ML IVPB SCH (08:00)
--- NOTE | 2017-03-19 08:16 | RAD ---
HISTORY: Septic shock, immunocompromised, history of lung cancer and liver tumor and nephrectomy COMPARISONS: CT chest dated November 05, 2013, CT of the abdomen and pelvis dated October 12, 2012 TECHNIQUE: Multiple contiguous axial CT scans were obtained of the chest, abdomen, and pelvis, without intravenous contrast enhancement. Coronal and sagittal multiplanar reformations are submitted for review.. Oral contrast was not administered. FINDINGS: The study is limited by the lack of intravenous contrast. This limits evaluation of the solid organs and vasculature. CHEST NECK AND THYROID: The lower neck and thyroid are unremarkable. CHEST WALL: There is no lower cervical, axillary, or supraclavicular lymphadenopathy by size criteria. There is small amount of intravenous gas within the right internal jugular vein, likely related to vascular access. HEART AND PERICARDIUM: The heart is unremarkable. AORTA AND PULMONARY VASCULATURE: The aorta and pulmonary vasculature are normal. There is a small amount of gas within the main pulmonary artery likely related to vascular access. MEDIASTINUM: There is no mediastinal lymphadenopathy by size criteria. EBONY: There is no hilar lymphadenopathy by size criteria. AIRWAY AND ESOPHAGUS: The airway is unremarkable, without endobronchial filling defect. The esophagus is grossly normal. LUNG PARENCHYMA: There is dependent atelectasis of the lung bases bilaterally. PLEURA: No pleural abnormalities are noted. BONES AND SOFT TISSUES: The patient is status post anterior cervical fusion. There is ossification of the anterior syndesmophytes of the thoracic spine ABDOMEN/PELVIS: LIVER: The liver is normal in shape, size, contour, and attenuation. BILE DUCTS: There is no intrahepatic or extrahepatic biliary dilatation. GALLBLADDER: Multiple gallstones are noted. There is no pericholecystic inflammatory change. PANCREAS: The pancreas is normal, without mass or ductal dilatation. SPLEEN: Normal in size and appearance. UPPER GI TRACT: Evaluation of the gastrointestinal tract is limited by incomplete gastric distention. The upper GI tract is unremarkable. SMALL BOWEL \T\ MESENTERY: The small bowel is normal in contour, course, and caliber. There is no obstruction or dilatation. COLON: The colon is normal in contour, course, caliber. There is no pericolonic inflammatory change. There is a tubular, vermiform, hollow viscus that is blind ending, and originates from the cecum, consistent with a normal appendix. There is no periappendiceal inflammatory change. This is best seen on axial images 80-83. ADRENALS: Normal bilaterally. KIDNEYS: The patient is status post right nephrectomy. On the left, there is no hydronephrosis or nephrolithiasis. BLADDER: The bladder is collapsed around a Reed catheter and is not well evaluated. PELVIC ORGANS: The prostate gland is normal. The seminal vesicles are symmetric. AORTA: The aorta is normal. IVC: Unremarkable. A right femoral venous catheter is noted with the tip at the level of the common iliac vein. LYMPH NODES: There is no lymphadenopathy by size criteria. ABDOMINAL WALL: There is no evidence for abdominal wall hernia. BONES AND SOFT TISSUES: There is ankylosis along the SI joints bilaterally. There is ossification of the anterior syndesmophytes of the thoracolumbar spine. OTHER: None IMPRESSION: 1. NO ACUTE CT PATHOLOGY OF THE CHEST. 2. CHOLELITHIASIS WITHOUT PERICHOLECYSTIC INFLAMMATORY CHANGE TO SUGGEST ACUTE CHOLECYSTITIS. 3. STATUS POST RIGHT NEPHRECTOMY. 4. FINDINGS SUGGESTIVE OF ANKYLOSING SPONDYLITIS
--- NOTE | 2017-03-19 08:20 | RAD ---
INDICATION: Sepsis in the presence of a "foot infection" COMPARISON: None. TECHNIQUE: Noncontrast CT examination of the left foot. Axial images were acquired and sagittal and coronal reformats were created and independently analyzed. FINDINGS: At the anterior portion of the tibiofibular joint (sagittal image 20 and axial image 28) there is heterogeneity of the cortex extending from the anterior surface of the distal fibula extending medially at the anterior distal portion of the syndesmosis. There is no cortical discontinuity or evidence of acute inflammatory change in this region. The visualized bones are otherwise well corticated and appropriately aligned. Soft tissues, within the limitations of a noncontrast CT examination appear to be intact. There is no excessive subcutaneous induration or drainable fluid collection. IMPRESSION: No definite acute abnormality including fracture, signs of osteomyelitis or drainable fluid collection.
[2017-03-19 08:59] LABS: Direct Bilirubin Redraw 0.4 mg/dL (0.03-0.18)
[2017-03-19] MEDS ORDERED: CMCS: Naltrexone (NF) 50 MG TAB PO SCH (09:00)
[2017-03-19] MEDS ORDERED: Influenza VAC *QUAD* 2017-18* 0.5 ML SYRINGE IM ONE (09:00)
[2017-03-19] MEDS: levETIRAcetam TAB* 500 MG PO SCH ×2 (09:40→18:03)
[2017-03-19] MEDS: Omeprazole CAP* 20 MG PO SCH (09:40)
[2017-03-19] MEDS: Docusate CAP* 100 MG PO SCH ×2 (09:41→22:01)
[2017-03-19] MEDS: Folic Acid TAB* 1 MG PO SCH (09:41)
[2017-03-19] MEDS ORDERED: Vancomycin(*) 1,000 MG in NS 0.9% 250 ML* 250 ML IVPB SCH (10:00)
--- NOTE | 2017-03-19 11:39 | CONSULT ---
Consult Consult: Consultation Note Critical Care Requesting Physician: Dr Lynn Reason for consult: septic shock Limitations in history/physical: none Date of consult: 03/19/2017 HPI: 56y M pmhx of Ankylosing Spondylitis on Adalimumab and methotrexate, h/o right nephrectomy 2/2 to RCC, epilepsy, h/o Anterior cervical fusion, chronic back pain; comes in 03/18 for fall at home. Stats on Friday he developed left foot pain, swelling, tenderness, progressed Friday. He had a mechanical fall from pain, no LOC, hit his head. [place] weak for a while and couldnt get up. Came to ER, found to be febrile, wbc elevation, started on IV abx for suspected left foot infection. Admitted to the floors. He became hypotensive, given IVF bolus 4 liters, BP stayed in 50s, started on jana, central line placed and moved to ICU. He received pain meds and muscle relaxants, a little tired but answers all questions, eyes closed, no distress. Denies cp/sob/n/v/headache/dizziness/ abdpain/diarrhea. Currently on jana at 50mcg/min. IV abx changed to cefepime and vanco iv. U/A done and revealed possible UTI also, so more reason for abx change. CT abd/ pelvis/LE done, no sig findings noted. ROS: negative except for pertinent positives mentioned above. 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 [employer] Allergies: pregabalin, penicillin Home Medications: levETIRAcetam TAB* [Keppra TAB*] 1,500 mg PO QAM 01/29/16 [History Confirmed 03/25] ALPRAZolam TAB* [Xanax TAB*] 4 - 5 mg PO BEDTIME 03/18/17 [History Confirmed 03/25] Adalimumab (NF) [Humira Pen (NF)] 40 mg SUBCUT Q14D 03/18/17 [History Confirmed 03/18/17] Folic Acid TAB* [Folvite TAB*] 1 mg PO QAM 03/18/17 [History Confirmed 03/18/17] Gabapentin CAP(*) [Neurontin 100 mg CAP(*)] 600 mg PO BEDTIME 03/18/17 [History Confirmed 03/18/17] Methotrexate TAB* 12.5 mg PO WEEKLY 03/18/17 [History Confirmed 03/18/17] Mirtazapine TAB* [Remeron TAB*] 15 mg PO BEDTIME 03/18/17 [History Confirmed 03/25] Naltrexone (NF) 50 mg PO QAM 03/18/17 [History Confirmed 03/18/17] Suvorexant [Belsomra] 20 mg PO BEDTIME 03/18/17 [History Confirmed 03/18/17] levETIRAcetam TAB* [Keppra TAB*] 2,000 mg PO QPM 03/18/17 [History Confirmed 03/25] tiZANidine TAB* [Zanaflex TAB*] 12 mg PO BEDTIME 03/18/17 [History Confirmed 03/25] Tele: NSR Vitals: Vital Signs Temp 98.6 F 03/19/17 11:01 Pulse 86 03/19/17 11:01 Resp 28 03/19/17 11:01 BP 169/148 03/19/17 11:01 Pulse Ox 100 03/19/17 11:01 Intake & Output 03/18/17 03/19/17 03/19/17 18:59 06:59 18:59 Intake Total 4400 60 Output Total 100 Balance 4400 -40 Weight 210 lb 212 lb Intake: IV Fluids 2400 ABX - VANCOMYCIN 250 IVPB 2000 NS (0.9%) 2000 Oral 60 Output: Garcia 100 O2/Vent: NC Infusions: neosynephrine 50mcg/min, ns 125cc/hour Current Medications: Acetaminophen (Tylenol Tab*) 650 mg PO Q6H PRN PRN Reason: FEVER/PAIN Alprazolam (Xanax Tab*) 4 mg PO BEDTIME [facility] Last Admin: 03/19/17 00:18 Dose: 4 mg Docusate Sodium (Colace Cap*) 200 mg PO BID [facility] Last Admin: 03/19/17 09:41 Dose: Not Given Folic Acid (Folvite Tab*) 1 mg PO QAM [facility] Last Admin: 03/19/17 09:41 Dose: 1 mg Gabapentin (Neurontin Cap(*)) 600 mg PO BEDTIME [facility] Last Admin: 03/19/17 00:18 Dose: 600 mg Heparin Sodium (Porcine) (Heparin Vial(*)) 5,000 units SUBCUT Q8HR [facility] Hydromorphone HCl (Dilaudid Inj*) 1 mg IV Q2H PRN PRN Reason: PAIN Sodium Chloride (Ns 0.9% 1000 Ml*) 1,000 mls @ 0 mls/hr IV WIDE OPEN SHANNON PRN Reason: Wide Open Stop: 03/20/17 00:46 Last Admin: 03/19/17 04:09 Dose: 1,000 mls/hr Sodium Chloride (Ns 0.9% 1000 Ml*) 1,000 mls @ 125 mls/hr IV PER RATE [facility] Last Admin: 03/19/17 05:05 Dose: 125 mls/hr Phenylephrine HCl 50 mg/ (Sodium Chloride) 250 mls @ 15 mls/hr IV Q16H [facility] PRN Reason: 50 MCG/MIN Last Admin: 03/19/17 05:49 Dose: 15 mls/hr Cefepime HCl (Maxipime 2 Gm In Dextrose Duplex (*)) 2 gm in 50 mls @ 100 mls/ hr IV Q24H [facility] Last Admin: 03/19/17 06:55 Dose: 100 mls/hr Levetiracetam (Keppra Tab*) 1,500 mg PO QAM [facility] Last Admin: 03/19/17 09:40 Dose: 1,500 mg Levetiracetam (Keppra Tab*) 2,000 mg PO QPM [facility] Mirtazapine (Remeron Tab*) 15 mg PO BEDTIME [facility] Last Admin: 03/19/17 01:02 Dose: 15 mg Pto: Suvorexant [ (Belsomra] 20 Mg) 20 mg PO BEDTIME [facility] Last Admin: 03/19/17 01:02 Dose: 20 mg Omeprazole (Prilosec Cap*) 20 mg PO DAILY@0600 [facility] Last Admin: 03/19/17 09:40 Dose: 20 mg Ondansetron HCl (Zofran Inj*) 4 mg IV Q6H PRN PRN Reason: NAUSEA Pharmacy Consult (Vancomycin Per Pharmacy*) 1 note FOLLOW UP .VANC PER PHARMACY [facility] Pharmacy Consult (Vancomycin Random Level*) 1 note FOLLOW UP 1200 ONE Stop: 03/19/17 12:01 Tizanidine HCl (Zanaflex Tab*) 12 mg PO BEDTIME [facility] Last Admin: 03/19/17 00:15 Dose: 12 mg Physical Exam: General: sleepy but answering questions, no distress, no diaphoresis Head: normocephalic, atraumatic HEENT: no pallor, no icterus, moist mucous membranes Neck: soft, supple, no jvd, no stridor CVS: normal rate, normal rhythm, no murmur Resp: bilateral air entry, no rhales, no wheeze, no rhonchi, no acc muscle use Abdomen: soft, nontender, nondistended, bowel sounds present Ext: pulses+, warm, no edema; left foot no erythema/tenderness/swelling, active range of motion intact, no pain on passive/active ROM, no wounds on left foot Skin: intact, no breakdown, no dryness Neuro: sleepy but awakens, answers all questions appropriately, orientedx3, moving all extremities, no gross focal deficit Labs: Laboratory Results - last 24 hr 03/18/17 03/18/17 03/18/17 19:15 19:15 22:22 WBC 21.3 H RBC 4.69 Hgb 15.8 Hct 45 MCV 96 H MCH 34 H MCHC 35 RDW 14 Plt Count 124 L MPV 8 Immature Gran % (Auto) Neut % (Auto) Lymph % (Auto) Pickett % (Auto) Eos % (Auto) Baso % (Auto) Absolute Neuts (auto) Absolute Lymphs (auto) Absolute Monos (auto) Absolute Eos (auto) Absolute Basos (auto) Absolute Nucleated RBC Neutrophils % Band Neutrophils % Lymphocytes % Reactive Lymphs % Monocytes % Nucleated RBC % Normal RBC Morphology ESR 24 H INR (Anticoag Therapy) APTT Sodium 134 Potassium 3.9 Chloride 101 Carbon Dioxide 26 Anion Gap 7 BUN 15 Creatinine 1.58 H Est GFR ( Amer) 60.0 Est GFR (Non-Af Amer) 46.7 BUN/Creatinine Ratio 9.5 Glucose 105 H Lactic Acid 1.1 Uric Acid 6.0 Calcium 9.0 Total Bilirubin 2.10 H Direct Bilirubin Indirect Bilirubin AST 18 ALT 13 Alkaline Phosphatase 58 Total Creatine Kinase 228 H Troponin I 0.03 C-Reactive Protein 357.20 H Total Protein 7.0 Albumin 4.0 Globulin 3.0 Albumin/Globulin Ratio 1.3 Urine Color Urine Appearance Urine pH Ur Specific Jeremiah Urine Protein Urine Ketones Urine Blood Urine Nitrate Urine Bilirubin Urine Urobilinogen Ur Leukocyte Esterase Urine WBC (Auto) Urine RBC (Auto) Urine Bacteria Urine Glucose 03/19/17 03/19/17 03/19/17 02:50 02:50 02:50 WBC 17.8 H RBC 4.12 Hgb 13.9 L Hct 41 L MCV 98 H MCH 34 H MCHC 34 RDW 14 Plt Count 100 L MPV 8 Immature Gran % (Auto) 4 Neut % (Auto) Lymph % (Auto) Pickett % (Auto) Eos % (Auto) Baso % (Auto) Absolute Neuts (auto) 14.6 H Absolute Lymphs (auto) 1.5 Absolute Monos (auto) 1.6 H Absolute Eos (auto) 0 Absolute Basos (auto) 0.1 Absolute Nucleated RBC 0 Neutrophils % 77 Band Neutrophils % 4 Lymphocytes % 9 L Reactive Lymphs % 1 Monocytes % 9 Nucleated RBC % Normal RBC Morphology Not Reportable ESR INR (Anticoag Therapy) 1.37 H APTT 32.8 Sodium Potassium Chloride Carbon Dioxide Anion Gap BUN 22 Creatinine 1.94 H Est GFR ( Amer) 47.3 Est GFR (Non-Af Amer) 36.8 BUN/Creatinine Ratio Glucose Lactic Acid Uric Acid Calcium Total Bilirubin Direct Bilirubin Indirect Bilirubin AST ALT Alkaline Phosphatase Total Creatine Kinase Troponin I C-Reactive Protein Total Protein Albumin Globulin Albumin/Globulin Ratio Urine Color Urine Appearance Urine pH Ur Specific Jeremiah Urine Protein Urine Ketones Urine Blood Urine Nitrate Urine Bilirubin Urine Urobilinogen Ur Leukocyte Esterase Urine WBC (Auto) Urine RBC (Auto) Urine Bacteria Urine Glucose 03/19/17 03/19/17 03/19/17 06:00 06:00 06:00 WBC 15.3 H RBC 3.90 L Hgb 13.2 L Hct 39 L MCV 99 H MCH 34 H MCHC 34 RDW 14 Plt Count 94 L MPV 8 Immature Gran % (Auto) Neut % (Auto) 83.2 H Lymph % (Auto) 9.6 L Pickett % (Auto) 6.7 Eos % (Auto) 0.2 Baso % (Auto) 0.3 Absolute Neuts (auto) 12.7 H Absolute Lymphs (auto) 1.5 Absolute Monos (auto) 1.0 H Absolute Eos (auto) 0 Absolute Basos (auto) 0 Absolute Nucleated RBC 0 Neutrophils % Band Neutrophils % Lymphocytes % Reactive Lymphs % Monocytes % Nucleated RBC % 0 Normal RBC Morphology ESR INR (Anticoag Therapy) APTT Sodium 137 Potassium TNP Chloride 108 Carbon Dioxide 24 Anion Gap 5 BUN 22 Creatinine 1.90 H Est GFR ( Amer) 48.5 Est GFR (Non-Af Amer) 37.7 BUN/Creatinine Ratio 11.6 Glucose 120 H Lactic Acid 0.9 Uric Acid Calcium 7.2 L Total Bilirubin 1.20 H Direct Bilirubin TNP Indirect Bilirubin TNP AST TNP ALT 10 Alkaline Phosphatase 47 Total Creatine Kinase Troponin I C-Reactive Protein Total Protein 5.4 L Albumin 3.0 L Globulin 2.4 Albumin/Globulin Ratio 1.3 Urine Color Urine Appearance Urine pH Ur Specific Jeremiah Urine Protein Urine Ketones Urine Blood Urine Nitrate Urine Bilirubin Urine Urobilinogen Ur Leukocyte Esterase Urine WBC (Auto) Urine RBC (Auto) Urine Bacteria Urine Glucose 03/19/17 03/19/17 06:54 07:00 WBC RBC Hgb Hct MCV MCH MCHC RDW Plt Count MPV Immature Gran % (Auto) Neut % (Auto) Lymph % (Auto) Pickett % (Auto) Eos % (Auto) Baso % (Auto) Absolute Neuts (auto) Absolute Lymphs (auto) Absolute Monos (auto) Absolute Eos (auto) Absolute Basos (auto) Absolute Nucleated RBC Neutrophils % Band Neutrophils % Lymphocytes % Reactive Lymphs % Monocytes % Nucleated RBC % Normal RBC Morphology ESR INR (Anticoag Therapy) APTT Sodium Potassium 4.2 Chloride Carbon Dioxide Anion Gap BUN Creatinine Est GFR ( Amer) Est GFR (Non-Af Amer) BUN/Creatinine Ratio Glucose Lactic Acid Uric Acid Calcium Total Bilirubin Direct Bilirubin 0.40 H Indirect Bilirubin AST 17 ALT Alkaline Phosphatase Total Creatine Kinase Troponin I C-Reactive Protein Total Protein Albumin Globulin Albumin/Globulin Ratio Urine Color Bhumika Urine Appearance Cloudy Urine pH 5.0 Ur Specific Jeremiah 1.026 Urine Protein 2+(100 mg/dl) H Urine Ketones Trace H Urine Blood 1+ H Urine Nitrate Negative Urine Bilirubin Negative Urine Urobilinogen Positive H Ur Leukocyte Esterase 3+ H Urine WBC (Auto) 3+(>20/hpf) H Urine RBC (Auto) 3+(>10/hpf) H Urine Bacteria 1+ H Urine Glucose Negative Imaging: cxr - no infiltrate ct brain 03/18 - no acute process CT abd/pelvis - cholilithiasis, no thickening/fluid CT LE 03/19 - no acute findings Assessment: 56y M pmhx of Ankylosing Spondylitis on Adalimumab and methotrexate , h/o right nephrectomy 2/2 to RCC, epilepsy, h/o Anterior cervical fusion, chronic back pain; comes in 03/18 for fall at home. Stats on Friday he developed left foot pain, swelling, tenderness, progressed Friday. He had a mechanical fall from pain, no LOC, hit his head. Comes to ER, admitted to floor , becomes hypotensive, started on sepsis protocol/IV pressors. -Septic shock -suspected Urinary source of infection -Left foot pain, improved? -Delirium, likely from pain meds/relaxants +/- sepsis -DONAL -thrombocytopenia h/o on methotrexate/adalimumab Chronic back pain Plan: Neuro- stable. recieved bdz/pain meds and relaxants overnight. cont to monitor. reviewed home meds, cont home meds as before. will dose each individually, reassess tonight before dosing. prn pain meds as needed only. delirium prec. CVS- septic shock, on jana. dec req now to 20mcg/min. titrate to MAP>65. on NS 125cc/hour. Making some urine. lactic acid neg. afebrile. IV abx cefepime/vanco , dosing as per pharmacy. Suspected source as UTI; left foot looks okay. euvolemic appearing clinically. Resp- stable status. CXR okay. on NC 2L. wean to keep sat >92%. ID- less febrile. wbc improving. Urinarlysis abnormal, culture in lab. left foot does not appear inflamed/swollen. CT neg for acute process in left leg/ foot. I do not feel clinically anything septic ongoing in left foot, low suspicion for septic joint. Cont cefepime(#1)/vanco(#1). Already recieved ceftriaxone, no reaction noted, no rash. check trough in AM 10/12. Underlying immunosuppresion from methotrexate/biologic agents may be exaccerbating sepsis, will hold for now. GI- cardiac diet. PPI prophylaxis. Renal- DONAL noted. states baseline Cr slightly abnormal but last 0.9-1.1. Follow urine output, K okay, lactic acid improved. no acidosis. garcia in place now. cont ns 125cc/hour. Ct without obstruction/hydro. May be septic ATN/hypotension /volume depletion as cause. Heme- hg stable. thrombocytopenia, plt 90k, no bleeding. heparin sq proph. Endo- insulin sq as needed, BS okay. Musculsk- left foot okay, no signs of infection actively. will monitor. keep elevated. Normally on methotrexate/adalimimab for , hold for now. Wounds- none DVT prophylaxis: heparin sq GI prophylaxis: ppi po Central Line: right fem vein tlc Arterial Line: no Garcia Cathetor: yes Disposition: ICU for septic shock Code Status: full code Total Critical Care time is 45 minutes, excluding procedures/teaching Garcia Valdovinos MD Jewel Bearing Broacher (Electronically Signed)
[2017-03-19] MEDS ORDERED: Vancomycin Random Level* NOTE FOLLOW UP ONE (12:00)
--- NOTE | 2017-03-19 12:17 | CONSULT ---
Consult Consult: Mr. Chapman is a 51 year old man known to me to me with a long standing history of ankylosing spondylitis, admitted to ICU with sepsis after a fall at home. At present, he is being treated for sepsis with antibiotics and supportive care. Methotrexate and Humira are on hold. He has had persistent left foot pain but on exam has no synovitis or warmth. I agree that he does not seem to have a septic joint. If joint pain persists or if he develops swelling, consider an MRI of this region. Will follow; thanks
[2017-03-19] MEDS: Ondansetron INJ* 2 MG/ML VIAL IV PRN (12:52)
[2017-03-19] MEDS: HYDROmorphone INJ* 2 MG/ML CARPUJECT SYRINGE IV PRN ×2 (12:52→16:44)
[2017-03-19] MEDS: Acetaminophen TAB* 325 MG PO PRN (14:49)
[2017-03-19] MEDS ORDERED: Vancomycin 1500 MG IV - x ONCE IVPB ONE ×2 (16:00)
--- NOTE | 2017-03-19 17:25 | CONS ---
CONSULTATION REPORT: DATE OF CONSULT: 03/19/17 CONSULTING PHYSICIANS: Dr. Lynn and Dr. Caldwell. REASON FOR CONSULT: Flare of joint pain in the setting of sepsis. CHIEF COMPLAINT: Joint pain and urosepsis. HISTORY OF PRESENT ILLNESS: Mr. Chapman is a 51-year-old male with a longstanding history of ankylosing spondylitis with peripheral joint involvement. He was last seen by me as an outpatient on 01/14/17. He has been on longstanding adalimumab or Humira with methotrexate. He also has a history of renal cell carcinoma and has had a nephrectomy. This malignancy has stayed in remission despite biologic therapy. He has had longstanding complications of chronic osteoarthritic changes as well as his spondylitis including an anterior cervical fusion. He also has chronic low back pain. He has had several UTIs, but his most recent episode was precipitated by a fall at home which occurred on the , which occurred after going [place] [employer]. Indeed, he felt well on Friday, but on Friday he developed some discomfort in his left foot along the heel region which spread to the lateral aspect of the foot and he felt subjectively that there is some tenderness as well as swelling. He also had a fall from this issue and had difficulty getting up as he hit his head and lost consciousness. He felt weak for a while and then he could not get up, but then he was able to get in touch with an ambulance who brought him straight to the emergency room. I did speak to him yesterday while he was in ambulance and he was on his way to the emergency room and I spoke to the ER physician last night about his condition. When seen in the ER, he was found to be febrile and labs revealed leukocytosis. He was felt to have possible sepsis as his vital signs were unstable and he was transferred to ICU and placed on IV antibiotics. The coverage was recently broadened given his septic shock-type picture and his urinalysis were showing no definitive organisms, showed some bacteria that suggested a urosepsis-type picture. It was of concern that he also had pain in his left foot, but he did not seem to have definitive swelling or synovitis along the lateral aspect of the foot where he was having complaints. He did have some minimal discomfort in his right knee where he bruised it or injured it when he scraped it when falling, but otherwise he has had no joint swelling that was noted on exam. The CT scan of the lower extremity showed no fluid collection or cellulitis and indeed a CT of his chest , abdomen, and pelvis showed no acute changes to explain his septic shock-type picture. Currently, he is stable in ICU and may be transferred to the floor soon. Certainly, his methotrexate and Humira were on hold. In terms of his septic-type picture, he was given IV fluids and started jamel and a central line was placed and he currently feels better in this regards. He denies any chest pain, shortness of breath, nausea, vomiting, headache, dizziness, abdominal pain , or diarrhea. His IV antibiotics as noted above were brought into cefepime and vancomycin. In terms of his symptoms with his foot, it tends to be worse as the day goes on, but it is relieved with pain medicine with no other exacerbating or relieving factors. He has not ambulated yet to see how he is doing with this PAST MEDICAL HISTORY: Includes ankylosing spondylitis, he has been on adalimumab and methotrexate. He also has a history of a right nephrectomy secondary to renal cell carcinoma, history of epilepsy, history of anterior cervical fusion secondary to a fall and fracture, and chronic back pain. PAST SURGICAL HISTORY: Includes nephrectomy as well as the anterior cervical fusion. HOME MEDICATIONS: Include: 1. Levetiracetam or Keppra 1500 mg every morning. 2. Alprazolam or Xanax 45 mg at bedtime as needed. 3. Adalimumab or Humira 40 mg every 2 weeks, and this is on hold. 4. Folic acid 1 mg daily. 5. Gabapentin or Neurontin 600 mg at bedtime. 6. Methotrexate 12.5 mg weekly. 7. Mirtazapine. 8. Naltrexone 50 mg in the morning. 9. Belsomra. 10. Tizanidine as needed. Current infusions include Jamel-Synephrine at 125 mcg per hour. Current inpatient medications include hydromorphone as needed as well as the antibiotics as noted above and anxiolytics as needed. ALLERGIES: Include DOXEPIN, TEMAZEPAM, PENICILLIN, and PREGABALIN. FAMILY HISTORY: Notable for hypertension, but no acute arthritic changes that were noted recently in family. SOCIAL HISTORY: Alcohol, very minimal. Denies smoking use. Denies other drug use other than the prescription medications. 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 He has a supportive family. REVIEW OF SYSTEMS: General: Fever as noted above. Eyes: Denies dry eyes or dry mouth. Cardiac: Denies chest wall pain. Pulmonary: Denies shortness of breath. Abdomen: Denies blood in the urine or stool. Denies abdominal pain despite history of gallbladder issues. Extremities: No cyanosis or edema. Musculoskeletal: As noted above. Endocrine: No glandular swelling. Hematologic: No bruising or bleeding. Psychiatric: Denies anxiety, but he does have a history of chronic anxiety, possible seizure disorder and chronic insomnia as well. He has been on multiple hypnotic agents to help him with sleeping and with chronic discomfort and he has been on naltrexone in the past too. Other 14-point review of systems were reviewed and were otherwise negative. PHYSICAL EXAM: Vital Signs: He had a temperature of 98.6, blood pressure 169/ 148 initially, and pulse ox a 100%. He weighs 212 pounds. General: He was pleasant, conversive, lying supine, answering questions appropriately and able to provide a complete history. There is a bandage on the forehead from his fall as well as scrape on the right knee with mild abrasion, but no skin breakdown. HEENT: Normocephalic, atraumatic. Pupils are equal, round and reactive to light and otherwise accommodate. Neck: Soft, supple. Vascular: No JVP elevation. No stridor. Pulmonary: Bilateral air entry. No rales, wheezes, or rhonchi. No accessory muscle use. Cardiovascular Exam: Revealed a normal rate, rhythm and normal S1 and S2. No murmurs, rubs or gallops. Abdomen: Soft, nontender, nondistended. Positive bowel sounds. Extremities: Pulses are 2+, warm. No edema. Musculoskeletal: Minimal tenderness at the left lateral aspect of the foot, but no heel tenderness and no synovitis or warmth, any acute range of motion of the ankle itself. He had no synovitis of his joints. He did have a significant restriction of the lumbosacral spine, but this was not extensively tested because he has from lying supine in the ICU. Neurologic: Oriented x3, moving all extremities. No gross deficits. Hematologic: No bruising or bleeding. DIAGNOSTIC STUDIES/LAB DATA: He had a white count 21.3, hemoglobin 15.8, and platelet count of 124,000. Creatinine of 1.58. AST and ALT were normal. CRP was very high at 357.2 and CK of 228. IMAGING: Chest x-ray, no infiltrates. CT of the brain, no acute process. CT of the abdomen and pelvis, revealed cholelithiasis, but no thickening or fluid and CT of the lower extremity on the showed no acute findings. ASSESSMENT: 1. Mr. Chapman is a 51-year-old male with longstanding history of ankylosing spondylitis. He has immunocompromised from methotrexate and Humira. These are currently on hold as he does seem to have a case of possible urosepsis. He is clinically improving with supportive care and broad-spectrum antibiotic coverage. At this point, I agree with continuing supportive care as he is doing and following his C-reactive protein as well as his white count as he continues to improve. Long- term, we needs to make sure that we continue to hold his immunosuppressive therapy until he completely recovers and then we will want to reevaluate this as well. 2. In terms of his left foot pain, it is unclear what has caused this. I agree that this does not look like a septic picture. He does not seem to have synovitis of his joints and possibly the source of his sepsis is an early urinary tract infection, although cultures are still pending at this point. If he does continue to have pain in his left foot considering the MRI image that might be more sensitive for soft tissue fluid collection in the CT, but at this point we can continue to watch it and monitor as we are doing. Of note, he does have a history of synovitis of his right knee the last year which required repeated drainage, but it does not seem to be active now and this has improved with immunomodulating therapy. 3. History of renal cell carcinoma, seems to be in remission. 4. Cholelithiasis, seems to be asymptomatic in this regard. Continue proton- pump inhibitor, GI prophylaxis. 5. Elevated creatinine. He is on renal based dose medications. We will continue to follow daily. TIME SPENT: Time spent with the patient is greater than 60 minutes with greater than 50% of the time spent counseling the patient. [id number]/CPS #: [id number] KALE
[2017-03-20] MEDS: Mirtazapine TAB* 15 MG PO SCH ×2 (01:46→21:54)
[2017-03-20] MEDS: SUVOREXANT 20 MG PO SCH ×2 (02:39→21:37)
[2017-03-20] MEDS: Phenylephrine INJ* 50 MG in NS 0.9% 250 ML* 245 ML IV SCH ×2 (02:40→19:35)
[2017-03-20] MEDS: HYDROmorphone INJ* 2 MG/ML CARPUJECT SYRINGE IV PRN ×3 (05:31→21:11)
[2017-03-20] MEDS: Ondansetron INJ* 2 MG/ML VIAL IV PRN ×3 (05:31→20:58)
[2017-03-20] MEDS: Omeprazole CAP* 20 MG PO SCH (05:49)
[2017-03-20] MEDS: Heparin VIAL(*) 5000 UNITS/ML VIAL (FIVE THOUSAND) SUBCUT SCH ×3 (05:51→21:09)
[2017-03-20 06:35] LABS: EGFR African American 70.7 (>60)
[2017-03-20] MEDS: Cefepime 2 GM in Dextrose(*) 2 GM/50 ML BAG IV SCH (06:47)
[2017-03-20] MEDS: NS 0.9% 1000 ML* 1,000 ML IV SCH (08:00)
[2017-03-20] MEDS: Folic Acid TAB* 1 MG PO SCH (08:19)
[2017-03-20] MEDS: levETIRAcetam TAB* 500 MG PO SCH ×2 (08:19→18:04)
[2017-03-20] MEDS: Acetaminophen TAB* 325 MG PO PRN ×2 (08:19→16:21)
[2017-03-20] MEDS: Docusate CAP* 100 MG PO SCH ×2 (08:34→21:03)
[2017-03-20] MEDS ORDERED: Vancomycin Trough Check NOTE FOLLOW UP ONE (09:00)
[2017-03-20] MEDS ORDERED: Vancomycin Random Level* NOTE FOLLOW UP ONE (09:00)
--- NOTE | 2017-03-20 09:51 | PN ---
Progress Note - Progress Note Date of Service: 03/20/17 Note: Progress Note - Critical Care 24 hour events: -febrile this morning tmax 104.5 -off pressors since yesterday -feels okay, mild headache only, backpain as previously on/off -left foot hurts intermitetntly, but no swelling/redness. -oob to chair yesterday Tele: NSR Vitals: tmax 104.5 Vital Signs Temp 104.5 F 03/20/17 08:00 Pulse 98 03/20/17 09:30 Resp 12 03/20/17 09:30 BP 155/106 03/20/17 09:30 Pulse Ox 96 03/20/17 09:30 Intake & Output 03/19/17 03/20/17 03/20/17 18:59 06:59 18:59 Intake Total 1370 1111 Output Total 500 700 550 Balance 870 411 -550 Weight 225 lb 12.054 oz Intake: IV Fluids 892 801 NS (0.9%) 892 801 IVPB 260 ABX - VANCOMYCIN 260 Medicated IV 68 CC - Phenylephrine/ 68 Neosynephrine Oral 410 50 Output: Urine 700 550 Garcia 500 O2/Vent: NC Infusions: ns 50cc/hour Current Medications: Acetaminophen (Tylenol Tab*) 650 mg PO Q6H PRN PRN Reason: FEVER/PAIN Last Admin: 03/20/17 08:19 Dose: 650 mg Alprazolam (Xanax Tab*) 4 mg PO BEDTIME [facility] Last Admin: 03/19/17 20:27 Dose: 4 mg Docusate Sodium (Colace Cap*) 200 mg PO BID [facility] Last Admin: 03/20/17 08:34 Dose: Not Given Folic Acid (Folvite Tab*) 1 mg PO QAM [facility] Last Admin: 03/20/17 08:19 Dose: 1 mg Gabapentin (Neurontin Cap(*)) 600 mg PO BEDTIME [facility] Last Admin: 03/19/17 20:28 Dose: 600 mg Heparin Sodium (Porcine) (Heparin Vial(*)) 5,000 units SUBCUT Q8HR [facility] Last Admin: 03/20/17 05:51 Dose: 5,000 units Hydromorphone HCl (Dilaudid Inj*) 1 mg IV Q2H PRN PRN Reason: PAIN Last Admin: 03/20/17 05:31 Dose: 1 mg Phenylephrine HCl 50 mg/ (Sodium Chloride) 250 mls @ 15 mls/hr IV Q16H SHANNON PRN Reason: 50 MCG/MIN Last Admin: 03/20/17 02:40 Dose: Not Given Cefepime HCl (Maxipime 2 Gm In Dextrose Duplex (*)) 2 gm in 50 mls @ 100 mls/ hr IV Q24H [facility] Last Admin: 03/20/17 06:47 Dose: 100 mls/hr Sodium Chloride (Ns 0.9% 1000 Ml*) 1,000 mls @ 50 mls/hr IV PER RATE [facility] Last Admin: 03/20/17 08:00 Dose: 50 mls/hr Influenza Virus Vaccine (Fluarix *Quad* *) 0.5 ml IM .ONCE ONE Stop: 03/21/17 09:01 Levetiracetam (Keppra Tab*) 1,500 mg PO QAM [facility] Last Admin: 03/20/17 08:19 Dose: 1,500 mg Levetiracetam (Keppra Tab*) 2,000 mg PO QPM [facility] Last Admin: 03/19/17 18:03 Dose: 2,000 mg Mirtazapine (Remeron Tab*) 15 mg PO BEDTIME [facility] Last Admin: 03/20/17 01:46 Dose: 15 mg Pto: Suvorexant [ (Belsomra] 20 Mg) 20 mg PO BEDTIME [facility] Last Admin: 03/20/17 02:39 Dose: Not Given Omeprazole (Prilosec Cap*) 20 mg PO DAILY@0600 [facility] Last Admin: 03/20/17 05:49 Dose: 20 mg Ondansetron HCl (Zofran Inj*) 4 mg IV Q6H PRN PRN Reason: NAUSEA Last Admin: 03/20/17 05:31 Dose: 4 mg Pharmacy Consult (Vancomycin Per Pharmacy*) 1 note FOLLOW UP .VANC PER PHARMACY [facility] Tizanidine HCl (Zanaflex Tab*) 12 mg PO BEDTIME [facility] Last Admin: 03/19/17 20:28 Dose: 12 mg Physical Exam: General: awake, alert, oriented, no distress Head: normocephalic, atraumatic HEENT: no pallor, no icterus, moist mucous membranes Neck: soft, supple, no jvd, no stridor CVS: normal rate, normal rhythm, no murmur Resp: bilateral air entry, no rhales, no wheeze, no rhonchi, no acc muscle use Abdomen: soft, nontender, nondistended, bowel sounds present Ext: pulses+, warm, no edema; left foot no erythema/tenderness/swelling, active range of motion intact Neuro: awake, alert, oriented x3, moves all ext Labs: Laboratory Results - last 24 hr 03/19/17 03/19/17 03/20/17 02:50 12:30 05:10 Hem Pathologist Commnt BUN 16 Creatinine 1.37 H Est GFR ( Amer) 70.7 Est GFR (Non-Af Amer) 55.0 Random Vancomycin 9.2 Imaging: cxr - no infiltrate ct brain 03/18 - no acute process CT abd/pelvis - cholilithiasis, no thickening/fluid CT LE 03/19 - no acute findings Blood cultures Microbiology 03/18/17 19:08 Aerobic Blood Culture - Preliminary Blood Venous Serratia Marcescens Anaerobic Blood Culture - Preliminary Serratia Marcescens Blood Culture - Final 03/19/17 07:00 Urine Culture - Final Urine 03/19/17 05:50 Nasal Screen MRSA (PCR)(ANIL) - Final Nasal Mrsa Negative Assessment: 56y M pmhx of Ankylosing Spondylitis on Adalimumab and methotrexate , h/o right nephrectomy 2/2 to RCC, epilepsy, h/o Anterior cervical fusion, chronic back pain; comes in 03/18 for fall at home. Stats on Friday he developed left foot pain, swelling, tenderness, progressed Friday. He had a mechanical fall from pain, no LOC, hit his head. Comes to ER, admitted to floor , becomes hypotensive, started on sepsis protocol/IV pressors. -Septic shock -Serratia Bacteremia -Left foot pain, improved? -Delirium, resolved -DONAL, improving -thrombocytopenia h/o on methotrexate/adalimumab Chronic back pain Plan: Neuro- stable. on bdz/antispasms meds for chronic back pain. cont keppra. delirium prec. CVS- off levo for 20 hours. on NS 50cc/hour. BP stable, HR 80-90s. Blood cx+ for serratia. Resp- stable status. on NC 2L. wean to keep sat >92%. ID- febrile this morning, wbc improved though. Blood cx serratia+ now. Repat culture this monring. on cefepime and vanco IV. Unclear source of it. Obtain ECHO for eval of endocarditis. Urine cx neg so far. No diarrhea. No joint swelling/redness noted. Obtain ID consult. Underlying immunosuppresion from methotrexate/biologic agents for on hold. GI- cardiac diet. PPI prophylaxis. Renal- DONAL improving, Cr 1.3 now, making urine. K okay, no acidosis. on NS 50cc/ hour. no garcia. May be septic ATN/hypotension/volume depletion as cause. Heme- hg stable. thrombocytopenia, no bleeding. heparin sq proph. Endo- insulin sq as needed, BS okay. Musculsk- left foot okay, no signs of infection actively. will monitor. keep elevated. Normally on methotrexate/adalimimab for , hold for now. Wounds- none DVT prophylaxis: heparin sq GI prophylaxis: ppi po Central Line: right fem vein tlc Arterial Line: no Garcia Cathetor: no Disposition: ICU for sepsis/bacteremia; hemodyn stable now; may consider transfer to medical floor Code Status: full code Garcia Valdovinos MD Overnight Babysitter (Electronically Signed)
[2017-03-20 12:16] LABS: Hematocrit 39 % (42-52); Hemoglobin 13.5 g/dl (14.0-18.0); Mean Corpuscular HGB Conc 34 g/dl (31-36); Mean Corpuscular Hemoglobin 34 pg (27-31); Mean Corpuscular Volume 98 fL (80-94); Mean Platelet Volume 8 um3 (7.4-10.4); Red Blood Count 4.01 10^6/ul (4.0-5.4); Red Cell Distribution Width 14 % (10.5-15); White Blood Count 11.9 10^3/ul (3.5-10.8)
[2017-03-20] MEDS: Vancomycin(*) 1,000 MG in NS 0.9% 250 ML* 250 ML IVPB SCH (14:22)
--- NOTE | 2017-03-20 15:51 | ECHO ---
Patient: ADOLFO SORIANO [facility] Rec#: [id number] : 1965 Date: 03/20/2017 Age: 51y Height: 180.34 cm / 71.0 in Weight: 102.06 kg / 224.9 lbs Sex: M BSA: 2.22 Room#: ICU-3 Admit Date#: 03/18/2017 Type: Inpatient Referring: Garcia Valdovinos Reading: Dennys Santo MD Hair Stylist: Felicia Palomares RDCS CC: AVERY KING Transthoracic Echocardiogram Indication: Sepsis BP: 155/106 HR: 88 Rhythm: NSR Findings History: Ankylosing spondylitis, epilepsy, renal cell cancer, s/p nephrectomy, C7 fracture. Technical Comments: The study quality is fair. The study is technically limited due to poor apical windows. The study was technically limited due to the patient's inability to lay in the left lateral decubitus position. Completed at 1355. Left Ventricle: The left ventricular chamber size is normal. Mild concentric left ventricular hypertrophy is observed. Global left ventricular wall motion and contractility are within normal limits. There is normal left ventricular systolic function.Visually estimated LVEF is 55 %. There is no consistent Doppler evidence of clinically significant diastolic dysfunction. Left Atrium: The left atrial chamber size is normal. Right Ventricle: Moderator Band present. The right ventricle is mildly dilated. The right ventricular global systolic function is normal. Right Atrium: The right atrium is mildly dilated. Aortic Valve: The aortic valve is trileaflet. There is no evidence of aortic regurgitation. There is no evidence of aortic stenosis. Mitral Valve: The mitral valve leaflets are mildly thickened. There is trace to mild mitral regurgitation. There is no evidence of mitral stenosis. Tricuspid Valve: The tricuspid valve leaflets are normal. There is trace to mild tricuspid regurgitation. The right ventricular systolic pressure is estimated at 35 mmHg. There is evidence that pulmonary hypertension may be underestimated. There is no tricuspid stenosis. Pulmonic Valve: The pulmonic valve appears normal. There is mild pulmonic regurgitation. There is no pulmonic stenosis. Pericardium: There is no significant pericardial effusion. Aorta: There is no dilatation of the ascending aorta. The aortic arch is not well visualized. The aortic root is normal in size. Pulmonary Artery: The main pulmonary artery appears normal. Venous: The venous system is not well visualized. The inferior vena cava is not visualized. Conclusions The study is technically limited due to poor apical windows. Mild concentric left ventricular hypertrophy is observed. Mild concentric left ventricular hypertrophy is observed. There is normal left ventricular systolic function. The visually estimated ejection fraction is 55%. There is trace to mild mitral regurgitation. There is trace to mild tricuspid regurgitation. There is mild pulmonic regurgitation. No significant lesions noted on the cardiac valves. No reports of prior studies are offered for comaprison. Measurements Name Value Normal Range RVIDd (AP) 2D 2.6 cm (0.9 - 2.6) RVDdMajor (2D) 4.5 cm (2.2 - 4.4) RAd ISD 4CH 5 cm (3.4 - 4.9) RA (A4C)W 3.8 cm (2.9 - 4.6) IVSd (2D) 1.1 cm (0.6 - 1) LVPWd (2D) 1.1 cm (0.6 - 1) LVIDd (2D) 5 cm (3.6 - 5.4) LVIDs (2D) 3.6 cm - LV FS (2D) 29 % (25 - 45) Aortic Annulus 2.1 cm (1.4 - 2.6) Ao root diameter (2D) 3 cm (2.1 - 3.5) Ascending Ao 3 cm (2.1 - 3.4) LA dimension (AP) 2D 3.4 cm (2.3 - 3.8) LAd ISD 4CH 4.6 cm (2.9 - 5.3) LA ISD 4CH W 3.7 cm (2.5 - 4.5) Name Value Normal Range LA ESV SP 4CH (A/L) 43 ml - LA ESV SP 2CH (A/L) 88 ml - LA ESV BP (A/L) 64 ml - LA ESV BP (A/L) index 29.04 ml/m2 - LA ESV SP 4CH (MOD) 33 ml - LA ESV SP 2CH (MOD) 78 ml - Name Value Normal Range MV E-wave Vmax 0.79 m/sec - MV deceleration time 182.1 msec - MV A-wave Vmax 0.68 m/sec - MV E:A ratio 1.15 ratio - LV septal e' Vmax 0.08 m/sec - LV lateral e' Vmax 0.06 m/sec - LV E:e' septal ratio 9.88 ratio - LV E:e' lateral ratio 13.17 ratio - Name Value Normal Range AV Vmax 1.12 m/sec - AV VTI 17.85 cm - AV peak gradient 5.02 mmHg - AV mean gradient 2.57 mmHg - LVOT Vmax 0.96 m/sec - LVOT VTI 15.46 cm - LVOT peak gradient 3.72 mmHg - LVOT mean gradient 1.81 mmHg - Name Value Normal Range TR Vmax 2.6 m/sec - TR peak gradient 27 mmHg - RAP 8 mmHg - RVSP 35 mmHg - Name Value Normal Range PV Vmax 0.71 m/sec - PV peak gradient 1.99 mmHg - MO end-diastolic Vmax 1.64 m/sec -
[2017-03-20] MEDS: ALPRAZolam TAB* 0.5 MG PO SCH (21:00)
[2017-03-20] MEDS: Gabapentin CAP(*) 300 MG PO SCH (21:02)
[2017-03-20] MEDS: tiZANidine TAB* 2 MG PO SCH (21:02)
[2017-03-21] MEDS ORDERED: traZODone TAB* 50 MG TAB PO ONE (00:22)
[2017-03-21] MEDS: Vancomycin(*) 1,000 MG in NS 0.9% 250 ML* 250 ML IVPB SCH (01:35)
[2017-03-21] MEDS: Acetaminophen TAB* 325 MG PO PRN ×2 (04:34→19:23)
[2017-03-21] MEDS: HYDROmorphone INJ* 2 MG/ML CARPUJECT SYRINGE IV PRN ×2 (04:34→19:25)
[2017-03-21] MEDS: Ondansetron INJ* 2 MG/ML VIAL IV PRN ×2 (04:37→19:21)
[2017-03-21] MEDS: Cefepime 2 GM in Dextrose(*) 2 GM/50 ML BAG IV SCH (07:08)
[2017-03-21] MEDS: Omeprazole CAP* 20 MG PO SCH (07:12)
[2017-03-21] MEDS: Heparin VIAL(*) 5000 UNITS/ML VIAL (FIVE THOUSAND) SUBCUT SCH ×3 (07:13→20:55)
[2017-03-21] MEDS ORDERED: Dextrose 50% Syringe 50 ML* 25 GM/50 ML SYRINGE IV PUSH PRN (07:46)
[2017-03-21] MEDS: levETIRAcetam TAB* 500 MG PO SCH ×2 (08:18→17:58)
[2017-03-21] MEDS: Folic Acid TAB* 1 MG PO SCH (08:18)
[2017-03-21] MEDS: Polyethylene Glycol 3350* 17 GM PACKET PO PRN (08:24)
[2017-03-21] MEDS: Docusate CAP* 100 MG PO SCH ×2 (08:25→20:47)
[2017-03-21] MEDS ORDERED: Influenza VAC *QUAD* 2017-18* 0.5 ML SYRINGE IM ONE (09:00)
[2017-03-21 09:59] LABS: Hematocrit 40 % (42-52); Hemoglobin 13.5 g/dl (14.0-18.0); Mean Corpuscular HGB Conc 34 g/dl (31-36); Mean Corpuscular Hemoglobin 34 pg (27-31); Mean Corpuscular Volume 100 fL (80-94); Mean Platelet Volume 8 um3 (7.4-10.4); Red Blood Count 3.98 10^6/ul (4.0-5.4); Red Cell Distribution Width 14 % (10.5-15); White Blood Count 9.1 10^3/ul (3.5-10.8)
[2017-03-21 10:10] LABS: BUN/Creatinine Ratio 8.8 (8-20); Calcium 7.9 mg/dL (8.6-10.3); EGFR African American 65.2 (>60); EGFR Non-African American 50.7 (>60); Potassium 3.9 mmol/L (3.5-5.0)
[2017-03-21] MEDS: NS 0.9% 1000 ML* 1,000 ML IV SCH (10:26)
--- NOTE | 2017-03-21 12:20 | ED ---
Ken Carreno Thomas, scribed for Beni Solitario MD on 03/18/17 at 1652 . Complex/Multi-Sys Presentation - HPI Summary HPI Summary: The pt is a 51 y/o M BIBA s/p fall from his bed this AM in which he struck his forehead. The patient has been having left ankle and left heel pain since yesterday and he fell this AM because he was unable to walk or stand. He was unable to get up for 45 minutes. He denies LOC. He does not know why he developed left ankle and heel pain. The pain is rated 8/10 and it is constant. He describes the pain as a percolation. Pt additionally c/o chronic back pain , fever, and generalized weakness. He denies blurry vision, sweats, chills, dizziness, and lightheadedness. Two years ago, the patient had an epileptic [place] and he fell 60 feet down a gorge. He has not slept in the last 48 hours. He is on Keppra and Naltrexone. PMHx: kidney cancer, ankylosing spondylosis, seizures, catastrophic injury from fall from 60 feet. PSHx: neck hardware. SHx: no smoking, rare alcohol use. FHx: renal disease. - History Of Current Complaint Chief Complaint: EDGeneral Time Seen by Provider: 03/18/17 15:35 Hx Obtained From: Patient Onset/Duration: Lasting Days - onset of L ankle and L heel pain yesterday, Still Present Timing: Constant Severity Initially: Severe Character: Unable To Describe - patient describes the pain as a "percolation" Associated Signs And Symptoms: Positive: Weakness - generalized, Back Pain - chronic, Other - left ankle and left heel pain, fever; NEGATIVE: LOC, blurry vision, sweats, chills, dizziness, and lightheadedness. - Allergies/Home Medications Allergies/Adverse Reactions: Allergies Allergy/AdvReac Type Severity Reaction Status Date / Time Pregabalin [From Lyrica] Allergy Intermediate Headache, Verified 04/17/16 18:15 Heart palpitations Penicillins [PCN] Allergy Unknown Unknown Verified 04/17/16 18:15 Reaction Details Home Medications: Home Medications ALPRAZolam TAB* [Xanax TAB*] 4 - 5 mg PO BEDTIME 03/18/17 [History Confirmed 03/25] Adalimumab (NF) [Humira Pen (NF)] 40 mg SUBCUT Q14D 03/18/17 [History Confirmed 03/18/17] Folic Acid TAB* [Folvite TAB*] 1 mg PO QAM 03/18/17 [History Confirmed 03/18/17] Gabapentin CAP(*) [Neurontin 100 mg CAP(*)] 600 mg PO BEDTIME 03/18/17 [History Confirmed 03/18/17] Methotrexate TAB* 12.5 mg PO WEEKLY 03/18/17 [History Confirmed 03/18/17] Mirtazapine TAB* [Remeron TAB*] 15 mg PO BEDTIME 03/18/17 [History Confirmed 03/25] Naltrexone (NF) 50 mg PO QAM 03/18/17 [History Confirmed 03/18/17] Suvorexant (NF) [Belsomra] 20 mg PO BEDTIME 03/18/17 [History Confirmed 03/18/17 ] levETIRAcetam TAB* [Keppra TAB*] 2,000 mg PO QPM 03/18/17 [History Confirmed 03/25] tiZANidine TAB* [Zanaflex TAB*] 12 mg PO BEDTIME 03/18/17 [History Confirmed 03/25] PMH/Surg Hx/FS Hx/Imm Hx Previously Healthy: No Endocrine/Hematology History: Denies: Hx Anticoagulant Therapy, Hx Bone Marrow Disease, Hx Diabetes, Hx Sickle Cell Disease, Hx Thyroid Disease, Hx Anemia, Hx Unexplained Bleeding Cardiovascular History: Denies: Hx Hypertension, Hx Pacemaker/ICD Respiratory History: Denies: Hx Asthma, Hx Chronic Obstructive Pulmonary Disease (COPD), Hx Pulmonary Embolism, Hx Sleep Apnea GI History: Reports: Other GI Disorders - 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, SURGERY 03/2010, [facility] Denies: Hx Jaundice, Hx Ulcer History: Reports: Other Problems/Disorders - S/P RIGHT NEPHRECTOMY 06/09/05 - LEFT KIDNEY FUNCTIONS WELL Denies: Hx Renal Disease Musculoskeletal History: Reports: Hx Arthritis, Hx Back Problems, Hx Orthopedic Injury - 2009 C7 neck fx, Other Musculoskeletal History - ankylosing spondylitis , DRAINED FLUID IN LEFT KNEE IN 09/2014 AT [facility] Denies: Hx Bursitis, Hx Tendonitis Sensory History: Reports: Hx Contacts or Glasses, Hx Vision Problem Denies: Hx Hearing Aid Opthamlomology History: Reports: Hx Contacts or Glasses, Hx Vision Problem Neurological History: Reports: Hx Seizures - SINCE October- UNDER CONTROL WITH MEDICATION, 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 C2-C7 fusion done, Other Neuro Impairments/Disorders - SPINAL TRAUMA- BROKE NECK 4 YEARS C2- C7, COMPLEX FRACTURE OF C7 05/2010 Denies: Hx Headaches, Hx Migraine, Hx Nerve Disease, Hx Transient Ischemic Attacks (TIA) Psychiatric History: Denies: Hx Anxiety, Hx Depression, Hx Panic Disorder, Hx Substance Abuse - Cancer History Cancer Type, Location and Year: 2005- [facility] nephrectomy for renal cell CA , 2007-[facility] benign pulmonary nodule, 2009 -[facility] (right) cervical median branch block, 2009- [facility] metastatic liver tumor. w/ radioablation Hx Chemotherapy: No Hx Radiation Therapy: No - Surgical History Surgery Procedure, Year, and Place: C7-FX WITH TITANIUM PLATE. 2005- [facility] nephrectomy for renal cell CA, 2007-[facility] benign pulmonary nodule, 2009 -[facility] (right) cervical median branch block, 2009- [facility] metastatic liver tumor. w/radioablation Hx Anesthesia Reactions: No - Immunization History Date of Tetanus Vaccine: unk Infectious Disease History: No Infectious Disease History: Denies: Hx Hepatitis, Hx Human Immunodeficiency Virus (HIV), Traveled Outside the in Last 30 Days - Family History Known Family History: Positive: Hypertension, Renal Disease - Renal transplant ( father) - Social History Alcohol Use: Rare Hx Substance Use: Yes Substance Use Comment - Amount & Last Used: MORPHINE, XANAX Hx Tobacco Use: No Smoking Status (MU): Never Smoked Tobacco Have You Smoked in the Last Year: No Review of Systems Positive: Fever. Negative: Chills, Skin Diaphoresis Negative: Blurred Vision, Erythema - eyes Negative: Sore Throat Negative: Chest Pain Negative: Shortness Of Breath, Cough Negative: Abdominal Pain, Vomiting, Nausea Negative: dysuria, hematuria Positive: Other - Chronic back pain, L ankle and heel pain, chronic neck pain. Negative: Myalgia, Edema - legs Negative: Rash Neurological: Other - NEGATIVE: dizziness, lightheadedness Positive: Weakness - generalized All Other Systems Reviewed And Are Negative: Yes Physical Exam - Summary Physical Exam Summary: Constitutional: Well-developed, Well-nourished, Alert. (-) Distressed Skin: Warm, Dry HENT: Normocephalic; Atraumatic Eyes: Conjunctiva normal Neck: Musculoskeletal ROM normal neck. (-) JVD, (-) Stridor, (-) Tracheal deviation Cardio: Rhythm regular, rate normal, Heart sounds normal; Intact distal pulses; The pedal pulses are 2+ and symmetric. Radial pulses are 2+ and symmetric. (-) Murmur Pulmonary/Chest wall: Effort normal. (-) Respiratory distress, (-) Wheezes, (-) Rales Abd: Soft, (-) Tenderness, (-) Distension, (-) Guarding, (-) Rebound Musculoskeletal: (-) Edema. The dorsum of his left foot is hot to the touch. There is no erythema or swelling. Lymph: (-) Cervical adenopathy Neuro: Alert, Oriented x3 Psych: Mood and affect Normal Triage Information Reviewed: Yes Vital Signs On Initial Exam: Initial Vitals Temp Pulse Resp BP Pulse Ox 99.8 F 108 19 95/75 97 03/18/17 15:45 03/18/17 15:45 03/18/17 15:45 03/18/17 15:45 03/18/17 15:45 Vital Signs Reviewed: Yes - Teresa Coma Scale Coma Scale Total: 15 Diagnostics - Vital Signs Vital Signs Temp Pulse Resp BP Pulse Ox 03/18/17 16:00 109 21 119/80 97 03/18/17 15:47 12 95/75 03/18/17 15:45 99.8 F 108 19 95/75 97 - Laboratory Lab Results: Lab Results 03/18/17 03/18/17 Range/Units 19:15 19:15 WBC 21.3 H (3.5-10.8) 10^3/ul RBC 4.69 (4.0-5.4) 10^6/ul Hgb 15.8 (14.0-18.0) g/dl Hct 45 (42-52) % MCV 96 H (80-94) fL MCH 34 H (27-31) pg MCHC 35 (31-36) g/dl RDW 14 (10.5-15) % Plt Count 124 L (150-450) 10^3/ul MPV 8 (7.4-10.4) um3 ESR 24 H (0-20) mm/Hr Sodium 134 (133-145) mmol/L Potassium 3.9 (3.5-5.0) mmol/L Chloride 101 (101-111) mmol/L Carbon Dioxide 26 (22-32) mmol/L Anion Gap 7 (2-11) mmol/L BUN 15 (6-24) mg/dL Creatinine 1.58 H (0.67-1.17) mg/dL Est GFR ( Amer) 60.0 (>60) Est GFR (Non-Af Amer) 46.7 (>60) BUN/Creatinine Ratio 9.5 (8-20) Glucose 105 H (70-100) mg/dL Uric Acid 6.0 (4.4-7.6) mg/dL Calcium 9.0 (8.6-10.3) mg/dL Total Bilirubin 2.10 H (0.2-1.0) mg/dL AST 18 (13-39) U/L ALT 13 (7-52) U/L Alkaline Phosphatase 58 (34-104) U/L Total Creatine Kinase 228 H (10-223) U/L Troponin I 0.03 (<0.04) ng/mL C-Reactive Protein 357.20 H (< 5.00) mg/L Total Protein 7.0 (6.4-8.9) g/dL Albumin 4.0 (3.2-5.2) g/dL Globulin 3.0 (2-4) g/dL Albumin/Globulin Ratio 1.3 (1-3) Result Diagrams: 03/21/17 09:38 03/21/17 09:38 Lab Statement: Any lab studies that have been ordered have been reviewed, and results considered in the medical decision making process. - Radiology XR Foot Xray Interpretation: No Acute Changes - Mild osteoarthritis at the first metatarsal phalangeal joint and interphalangeal joint of the great toe. ED physician has reviewed this report and agrees. Radiology Interpretation Completed By: Radiologist XR Ankle Xray Interpretation: No Acute Changes - Mild osteoarthritis at the first metatarsal phalangeal joint and interphalangeal joint of the great toe. ED physician has reviewed this report and agrees. Radiology Interpretation Completed By: Radiologist - CT CT Brain CT Interpretation: No Acute Changes - No CT evidence for traumatic brain injury. Negative exam. ED physician has reviewed this report and agrees. CT Interpretation Completed By: Radiologist Complex Multi-Symp Course/Dx Assessment/Plan: The pt is a 51 y/o M BIBA s/p fall from his bed this AM in which he struck his forehead. The patient has been having left ankle and left heel pain since yesterday and he fell this AM because he was unable to walk or stand. He was unable to get up for 45 minutes. He denies LOC. He does not know why he developed left ankle and heel pain. The pain is rated 8/10 and it is constant. He describes the pain as a percolation. Pt additionally c/o chronic back pain, fever, and generalized weakness. He denies blurry vision, sweats, chills, dizziness, and lightheadedness. Two years ago, the patient had an epileptic seizure [place] and he fell 60 feet down a gorge. He has not slept in the last 48 hours. He is on Keppra and Naltrexone. PMHx: kidney cancer, ankylosing spondylosis, seizures, catastrophic injury from fall from 60 feet. PSHx: neck hardware. SHx: no smoking, rare alcohol use. FHx: renal disease. Foot XR shows Mild osteoarthritis at the first metatarsal phalangeal joint and interphalangeal joint of the great toe. CT Brain shows No CT evidence for traumatic brain injury. Negative exam. Ankle XR shows Mild osteoarthritis at the first metatarsal phalangeal joint and interphalangeal joint of the great toe. I consulted with Dr. Wadsworth, orthopedics, at 20:00 regaring the possibility of arthritic sepsis and osteomyelitis. He recommends IV antibioitcs and for the patient to see a foot and ankle specialist in the AM as well as a possible admission. I consulted with paolo Santa, who admits the patient at 20:54. - Diagnoses Provider Diagnoses: Sepsis, Osteomyelitis of foot, left, acute - Physician Notifications Discussed Care Of Patient With: Brad Wadsworth Time Discussed With Above Provider: 20:00 Instructed by Provider To: Other - I consulted with Dr. Wadsworth, orthopedics, at 20:00 regaring the possibility of arthritic sepsis and osteomyelitis. He recommends IV antibioitcs and for the patient to see a foot and ankle specialist in the AM as well as a possible admission. I consulted with jose Santaurnist, who admits the patient at 20:54. Discharge - Discharge Plan Condition: Fair Disposition: ADMITTED TO [facility] The documentation as recorded by the Ken barclay Thomas accurately reflects the service I personally performed and the decisions made by me, Beni Solitario MD.
--- NOTE | 2017-03-21 18:25 | PN ---
Subjective - Subjective History: Date of follow up note: 03/21/2017 Chief Complaint : Ankylosing spondylitis Overall Mr. Chapman is feeling better. His foot is feeling better today. He is ambulating a little; currently he is sitting and resting in a chair. He denied chest pain or shortness of breath. Current Medications: Current Medications Acetaminophen (Tylenol Tab*) 650 mg PO Q6H PRN PRN Reason: FEVER/PAIN Last Admin: 03/21/17 04:34 Dose: 650 mg Alprazolam (Xanax Tab*) 4 mg PO BEDTIME [facility] Last Admin: 03/20/17 21:00 Dose: 4 mg Docusate Sodium (Colace Cap*) 200 mg PO BID [facility] Last Admin: 03/21/17 08:25 Dose: Not Given Folic Acid (Folvite Tab*) 1 mg PO QAM [facility] Last Admin: 03/21/17 08:18 Dose: 1 mg Gabapentin (Neurontin Cap(*)) 600 mg PO BEDTIME [facility] Last Admin: 03/20/17 21:02 Dose: 600 mg Heparin Sodium (Porcine) (Heparin Vial(*)) 5,000 units SUBCUT Q8HR [facility] Last Admin: 03/21/17 13:24 Dose: 5,000 units Hydromorphone HCl (Dilaudid Inj*) 1 mg IV Q2H PRN PRN Reason: PAIN Last Admin: 03/21/17 04:34 Dose: 1 mg Cefepime HCl (Maxipime 2 Gm In Dextrose Duplex (*)) 2 gm in 50 mls @ 100 mls/ hr IV Q24H [facility] Last Admin: 03/21/17 07:08 Dose: 100 mls/hr Sodium Chloride (Ns 0.9% 1000 Ml*) 1,000 mls @ 50 mls/hr IV PER RATE [facility] Last Admin: 03/21/17 10:26 Dose: 50 mls/hr Levetiracetam (Keppra Tab*) 1,500 mg PO QAM [facility] Last Admin: 03/21/17 08:18 Dose: 1,500 mg Levetiracetam (Keppra Tab*) 2,000 mg PO QPM [facility] Last Admin: 03/21/17 17:58 Dose: 2,000 mg Mirtazapine (Remeron Tab*) 15 mg PO BEDTIME [facility] Last Admin: 03/20/17 21:54 Dose: 15 mg Omeprazole (Prilosec Cap*) 20 mg PO DAILY@0600 [facility] Last Admin: 03/21/17 07:12 Dose: 20 mg Ondansetron HCl (Zofran Inj*) 4 mg IV Q6H PRN PRN Reason: NAUSEA Last Admin: 03/21/17 04:37 Dose: 4 mg Polyethylene Glycol/Electrolytes (Miralax*) 17 gm PO DAILY PRN PRN Reason: CONSTIPATION Last Admin: 03/21/17 08:24 Dose: 17 gm Suvorexant (Belsomra (Nf)) 20 mg PO BEDTIME [facility] Tizanidine HCl (Zanaflex Tab*) 12 mg PO BEDTIME [facility] Last Admin: 03/20/17 21:02 Dose: 12 mg - Review of Systems General Comments: No recent discomfort Constitutional Symptoms: No: Weight Gain, Weight Loss, Night Sweats, Unexplained Falls Dermatology: Normal: No - Abrasion on right knee is improved HEENT: No Normal Eyes: Positive: Normal Thyroid: Positive: Normal Pulmonary: Positive: Normal Cardiology: Positive: Normal Gastroenterology: Positive: Normal Musculoskeletal: Positive: Joint Stiffness, Arthritis Endocrinology: Positive: Normal Neurology: Positive: Normal Psychiatry: Positive: Normal Allergic/Immunologic: Positive: Immunocompromise Home Medications: Home Medications Medication Instructions Recorded Confirmed Type levETIRAcetam TAB* [Keppra TAB*] 1,500 mg PO QAM 01/29/16 03/18/17 History ALPRAZolam TAB* [Xanax TAB*] 4 - 5 mg PO BEDTIME 03/18/17 03/18/17 History Adalimumab (NF) [Humira Pen (NF)] 40 mg SUBCUT Q14D 03/18/17 03/18/17 History Folic Acid TAB* [Folvite TAB*] 1 mg PO QAM 03/18/17 03/18/17 History Gabapentin CAP(*) [Neurontin 100 600 mg PO BEDTIME 03/18/17 03/18/17 History mg CAP(*)] Methotrexate TAB* 12.5 mg PO WEEKLY 03/18/17 03/18/17 History Mirtazapine TAB* [Remeron TAB*] 15 mg PO BEDTIME 03/18/17 03/18/17 History Naltrexone (NF) 50 mg PO QAM 03/18/17 03/18/17 History Suvorexant (NF) [Belsomra] 20 mg PO BEDTIME 03/18/17 03/18/17 History levETIRAcetam TAB* [Keppra TAB*] 2,000 mg PO QPM 03/18/17 03/18/17 History tiZANidine TAB* [Zanaflex TAB*] 12 mg PO BEDTIME 03/18/17 03/18/17 History Allergies: Allergies Allergy/AdvReac Type Severity Reaction Status Date / Time Pregabalin [From Lyrica] Allergy Intermediate Headache, Verified 04/17/16 18:15 Heart palpitations Penicillins [PCN] Allergy Unknown Unknown Verified 04/17/16 18:15 Reaction Details Objective - Vital Signs Vital Signs: Vital Signs 03/20/17 03/20/17 03/20/17 18:25 19:29 20:00 Temperature 99.3 F 99.3 F Pulse Rate 91 95 Respiratory 18 14 18 Rate Blood Pressure 136/89 145/101 (mmHg) O2 Sat by Pulse 100 95 Oximetry 03/20/17 03/20/17 03/20/17 21:00 21:02 21:11 Temperature Pulse Rate Respiratory 18 18 18 Rate Blood Pressure (mmHg) O2 Sat by Pulse Oximetry 03/20/17 03/20/17 03/20/17 22:11 23:00 23:02 Temperature Pulse Rate Respiratory 18 18 18 Rate Blood Pressure (mmHg) O2 Sat by Pulse Oximetry 03/20/17 03/21/17 03/21/17 23:50 04:34 05:34 Temperature 99.9 F Pulse Rate 94 Respiratory 20 16 18 Rate Blood Pressure 126/72 (mmHg) O2 Sat by Pulse 94 Oximetry 03/21/17 03/21/17 03/21/17 07:43 08:00 11:14 Temperature 98.1 F 98.3 F Pulse Rate 86 86 Respiratory 18 16 16 Rate Blood Pressure 126/78 142/96 (mmHg) O2 Sat by Pulse 97 97 Oximetry 03/21/17 15:24 Temperature 98.4 F Pulse Rate 88 Respiratory 20 Rate Blood Pressure 149/90 (mmHg) O2 Sat by Pulse 97 Oximetry - Intake and Output Intake and Output: Intake & Output 03/19/17 03/20/17 03/21/17 03/22/17 06:59 06:59 06:59 06:59 Intake Total 4400 2481 1862 2360 Output Total 1200 3300 1200 Balance 4400 1281 -1438 1160 Weight 212 lb 225 lb 12.054 oz Intake: IV Fluids 2400 1693 572 600 ABX - VANCOMYCIN 250 NS (0.9%) 1693 572 600 IVPB 2000 260 250 ABX - VANCOMYCIN 260 250 NS (0.9%) 2000 Medicated IV 68 CC - Phenylephrine/ 68 Neosynephrine Oral 460 1040 1760 Output: Urine 700 3300 1200 Reed 500 Other: Estimated Void Large # Bowel Movements 0 ADLs: Meal Record Start: 03/19/17 06: 30 Freq: ,13,18 Status: Active Created 03/19/17 06:30 [id number] (Rec: 03/19/17 06:30 [id number] ICU-M21) Document 03/19/17 09:58 [id number] (Rec: 03/19/17 09:58 [id number] ICU-C15) Document 03/19/17 13:00 [id number] (Rec: 03/19/17 14:10 [id number] ICU-C15) Document 03/19/17 18:00 [id number] (Rec: 03/19/17 19:15 [id number] ICU-C15) Document 03/20/17 09:00 [id number] (Rec: 03/20/17 11:13 [id number] ICU-C16) Document 03/20/17 13:00 [id number] (Rec: 03/20/17 14:04 [id number] ICU-C20) Document 03/20/17 18:00 [id number] (Rec: 03/20/17 19:58 [id number] TELE-C10) Document 03/21/17 09:00 [id number] (Rec: 03/21/17 09:32 [id number] TELE-C10) Document 03/21/17 13:00 [id number] (Rec: 03/21/17 13:10 [id number] TELE-C10) Document 03/21/17 18:00 [id number] (Rec: 03/21/17 18:07 [id number] TELE-C06) Intake and Output Start: 03/19/17 06: 30 Freq: 06,14,22 Status: Active Created 03/19/17 06:30 [id number] (Rec: 03/19/17 06:30 [id number] ICU-M21) Document 03/19/17 08:18 [id number] (Rec: 03/19/17 08:18 [id number] ICU-M21) Document 03/19/17 14:14 [id number] (Rec: 03/19/17 14:14 [id number] ICU-M21) Document 03/19/17 19:10 [id number] (Rec: 03/19/17 19:10 [id number] ICU-C15) Document 03/19/17 22:00 [id number] (Rec: 03/19/17 22:04 [id number] ICU-C15) Document 03/20/17 08:19 [id number] (Rec: 03/20/17 08:20 [id number] ICU-M21) Document 03/20/17 14:00 [id number] (Rec: 03/20/17 14:52 [id number] ICU-C10) Document 03/20/17 21:30 [id number] (Rec: 03/20/17 21:30 [id number] TELE-C01) Document 03/21/17 05:48 [id number] (Rec: 03/21/17 05:48 [id number] TELE-C34) Document 03/21/17 05:48 [id number] (Rec: 03/21/17 05:49 [id number] TELE-C34) Document 03/21/17 09:33 [id number] (Rec: 03/21/17 09:33 [id number] TELE-C10) Document 03/21/17 13:10 [id number] (Rec: 03/21/17 13:11 [id number] TELE-C10) - Physical Exam General Physical Exam Comment: No acute distress sitting up Eye Exam: bilateral: PERRLA Head: Yes Normocephalic Ear Exam: bilateral ear: Normal Thyroid Function: Clinically Euthyroid Lungs and Chest: Yes: Chest Expansion Full, Chest Expansion Symetrica Heart Rate and Rhythm: Regular JVP: Not Elevated [place] Beat: Non Displaced Additional Cardiovascular: Yes: [place] Beat not Displaced Abdominal Exam: Yes: Soft - Rheumotological System Additional Musculoskeletal: Kyphosis - He has no synovitis of his joints and no warmth or swelling. Spine remains unchanged - Extremities Posterior Tibial Pulse: Bilateral Normal Dorsalis Pedis Pulses: Bilateral Normal - Neuro Psychiatric: Normal Speech: Normal Results - Results Lab Results: Laboratory Results - last 24 hr 03/21/17 03/21/17 09:38 09:38 WBC 9.1 RBC 3.98 L Hgb 13.5 L Hct 40 L MCV 100 H MCH 34 H MCHC 34 RDW 14 Plt Count 121 L MPV 8 Sodium 138 Potassium 3.9 Chloride 109 Carbon Dioxide 25 Anion Gap 4 BUN 13 Creatinine 1.47 H Est GFR ( Amer) 65.2 Est GFR (Non-Af Amer) 50.7 BUN/Creatinine Ratio 8.8 Glucose 117 H Calcium 7.9 L Assessment - Problem List Assessment: Patient Problems DVT prophylaxis (Acute 10/07/14) Full code status (Acute 10/07/14) Sleep apnea (Acute) Status epilepticus (Acute) Ankylosing spondylitis (Chronic) Hx of renal cell carcinoma (Chronic) Hx of seizure disorder (Chronic) 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 He has no active synovitis. He will need to continue to hold immunosuppressive therapy. Follow up ID recommendations. Foot pain: seems improved today History of knee inflammation: no active synovitis today is present : overall stable. Elevated CRP: would follow for improvement.
--- NOTE | 2017-03-21 20:43 | PN ---
Subjective Date of Service: 03/21/17 Interval History: Pt chief complaint is not receiving his belsorma he takes nightly for insomnia, did not sleep at all. Pharmacy has now obtained. No fevers, hemodynamically stable. Objective Active Medications: Acetaminophen (Tylenol Tab*) 650 mg PO Q6H PRN PRN Reason: FEVER/PAIN Last Admin: 03/21/17 19:23 Dose: 650 mg Alprazolam (Xanax Tab*) 4 mg PO BEDTIME [facility] Last Admin: 03/20/17 21:00 Dose: 4 mg Docusate Sodium (Colace Cap*) 200 mg PO BID [facility] Last Admin: 03/21/17 08:25 Dose: Not Given Folic Acid (Folvite Tab*) 1 mg PO QAM [facility] Last Admin: 03/21/17 08:18 Dose: 1 mg Gabapentin (Neurontin Cap(*)) 600 mg PO BEDTIME [facility] Last Admin: 03/20/17 21:02 Dose: 600 mg Heparin Sodium (Porcine) (Heparin Vial(*)) 5,000 units SUBCUT Q8HR [facility] Last Admin: 03/21/17 13:24 Dose: 5,000 units Hydromorphone HCl (Dilaudid Inj*) 1 mg IV Q2H PRN PRN Reason: PAIN Last Admin: 03/21/17 19:25 Dose: 1 mg Cefepime HCl (Maxipime 2 Gm In Dextrose Duplex (*)) 2 gm in 50 mls @ 100 mls/ hr IV Q24H [facility] Last Admin: 03/21/17 07:08 Dose: 100 mls/hr Sodium Chloride (Ns 0.9% 1000 Ml*) 1,000 mls @ 50 mls/hr IV PER RATE [facility] Last Admin: 03/21/17 10:26 Dose: 50 mls/hr Levetiracetam (Keppra Tab*) 1,500 mg PO QAM [facility] Last Admin: 03/21/17 08:18 Dose: 1,500 mg Levetiracetam (Keppra Tab*) 2,000 mg PO QPM [facility] Last Admin: 03/21/17 17:58 Dose: 2,000 mg Mirtazapine (Remeron Tab*) 15 mg PO BEDTIME [facility] Last Admin: 03/20/17 21:54 Dose: 15 mg Omeprazole (Prilosec Cap*) 20 mg PO DAILY@0600 [facility] Last Admin: 03/21/17 07:12 Dose: 20 mg Ondansetron HCl (Zofran Inj*) 4 mg IV Q6H PRN PRN Reason: NAUSEA Last Admin: 03/21/17 19:21 Dose: 4 mg Polyethylene Glycol/Electrolytes (Miralax*) 17 gm PO DAILY PRN PRN Reason: CONSTIPATION Last Admin: 03/21/17 08:24 Dose: 17 gm Suvorexant (Belsomra (Nf)) 20 mg PO BEDTIME [facility] Tizanidine HCl (Zanaflex Tab*) 12 mg PO BEDTIME [facility] Last Admin: 03/20/17 21:02 Dose: 12 mg Vital Signs 03/20/17 03/20/17 03/20/17 21:00 21:02 21:11 Temperature Pulse Rate Respiratory 18 18 18 Rate Blood Pressure (mmHg) O2 Sat by Pulse Oximetry 03/20/17 03/20/17 03/20/17 22:11 23:00 23:02 Temperature Pulse Rate Respiratory 18 18 18 Rate Blood Pressure (mmHg) O2 Sat by Pulse Oximetry 03/20/17 03/21/17 03/21/17 23:50 04:34 05:34 Temperature 99.9 F Pulse Rate 94 Respiratory 20 16 18 Rate Blood Pressure 126/72 (mmHg) O2 Sat by Pulse 94 Oximetry 03/21/17 03/21/17 03/21/17 07:43 08:00 11:14 Temperature 98.1 F 98.3 F Pulse Rate 86 86 Respiratory 18 16 16 Rate Blood Pressure 126/78 142/96 (mmHg) O2 Sat by Pulse 97 97 Oximetry 03/21/17 03/21/17 15:24 19:25 Temperature 98.4 F Pulse Rate 88 Respiratory 20 16 Rate Blood Pressure 149/90 (mmHg) O2 Sat by Pulse 97 Oximetry Oxygen Devices in Use Now: None Appearance: no acute distress. Eyes: No Scleral Icterus, PERRLA Ears/Nose/Mouth/Throat: NL Teeth, Lips, Gums, Mucous Membranes Moist Neck: NL Appearance and Movements; NL JVP, Trachea Midline Respiratory: Symmetrical Chest Expansion and Respiratory Effort, Clear to Auscultation Cardiovascular: NL Sounds; No Murmurs; No JVD, RRR Abdominal: NL Sounds; No Tenderness; No Distention, No Hepatosplenomegaly Extremities: No Edema, No Clubbing, Cyanosis Skin: No Rash or Ulcers Neurological: Alert and Oriented x 3, NL Muscle Strength and Tone Result Diagrams: 03/21/17 09:38 03/21/17 09:38 Additional Lab and Data: Laboratory Results - last 24 hr 03/21/17 03/21/17 09:38 09:38 WBC 9.1 RBC 3.98 L Hgb 13.5 L Hct 40 L MCV 100 H MCH 34 H MCHC 34 RDW 14 Plt Count 121 L MPV 8 Sodium 138 Potassium 3.9 Chloride 109 Carbon Dioxide 25 Anion Gap 4 BUN 13 Creatinine 1.47 H Est GFR ( Amer) 65.2 Est GFR (Non-Af Amer) 50.7 BUN/Creatinine Ratio 8.8 Glucose 117 H Calcium 7.9 L Microbiology and Other Data: Microbiology 03/20/17 15:40 Aerobic Blood Culture - Preliminary Blood Venous No Growth Day 1 Anaerobic Blood Culture - Preliminary No Growth Day 1 03/20/17 05:45 Urine Culture - Final Urine No Growth (<1,000 CFU/mL) 03/18/17 19:08 Aerobic Blood Culture - Final Blood Venous Serratia Marcescens Anaerobic Blood Culture - Final Serratia Marcescens Blood Culture - Final Assess/Plan/Problems-Billing Assessment: 51 year old male PMH Anklyosing Spondylitis on humira and methotrexate, seizure d/o and severe insomnia presenting with sepsis 2/2 serratia marcenas bacteremia. Unclear source but suspicious UA. Improved on cefepime. - Patient Problems (1) Serratia marcescens infection Current Visit: Yes Status: Acute Code(s): J15.6 - PNEUMONIA DUE TO OTHER GRAM-NEGATIVE BACTERIA SNOMED Code(s): 91410567 Comment: Continue cefepime. once repeat BCx clear, plan discharge on 3 weeks of levaquin per ID. Appreciate ID recs Sepsis on presentation, no resolved bladder scan negative for retention. (2) Ankylosing spondylitis Current Visit: No Status: Chronic Code(s): M45.9 - ANKYLOSING SPONDYLITIS OF UNSPECIFIED SITES IN SPINE SNOMED Code(s): 7639766 Comment: appreciate Dr. Michelle anna hold humira and methotrexate given concern for immunosuppression. left ankle pain improved. (3) Hx of renal cell carcinoma Current Visit: No Status: Chronic Code(s): Z85.528 - PERSONAL HISTORY OF OTHER MALIGNANT NEOPLASM OF KIDNEY SNOMED Code(s): 831767362 (4) Insomnia due to medical condition Current Visit: No Status: Chronic Code(s): G47.01 - INSOMNIA DUE TO MEDICAL CONDITION SNOMED Code(s): 91081000 Comment: Belsorma now in pixis for distribution (class IV). Very important patient gets due to his seizure disorder. (5) Hx of seizure disorder Current Visit: No Status: Chronic Priority: High Code(s): Z86.69 - PERSONAL HISTORY OF DIS OF THE NERVOUS SYS AND SENSE ORGANS SNOMED Code(s): 872180524 Comment: keppra 1500mg qam and 2000mg qpm Status and Disposition: medicine inpatient planned d/c 03/22 if blood cultures clear. Attending: Kurt Ordonez
[2017-03-21] MEDS: ALPRAZolam TAB* 0.5 MG PO SCH (20:49)
[2017-03-21] MEDS: tiZANidine TAB* 2 MG PO SCH (20:51)
[2017-03-21] MEDS: Gabapentin CAP(*) 300 MG PO SCH (20:52)
[2017-03-21] MEDS ORDERED: Suvorexant (NF) 20 MG TAB PO SCH (21:00)
[2017-03-21] MEDS: Mirtazapine TAB* 15 MG PO SCH (22:33)
[2017-03-22] MEDS: Omeprazole CAP* 20 MG PO SCH (05:04)
[2017-03-22] MEDS: Acetaminophen TAB* 325 MG PO PRN (05:08)
[2017-03-22] MEDS: Heparin VIAL(*) 5000 UNITS/ML VIAL (FIVE THOUSAND) SUBCUT SCH ×2 (05:08→12:34)
[2017-03-22] MEDS: Cefepime 2 GM in Dextrose(*) 2 GM/50 ML BAG IV SCH (05:36)
[2017-03-22] MEDS: NS 0.9% 1000 ML* 1,000 ML IV SCH (05:39)
[2017-03-22 05:45] LABS: Hematocrit 39 % (42-52); Hemoglobin 13.4 g/dl (14.0-18.0); Mean Corpuscular HGB Conc 34 g/dl (31-36); Mean Corpuscular Hemoglobin 34 pg (27-31); Mean Corpuscular Volume 99 fL (80-94); Mean Platelet Volume 7 um3 (7.4-10.4); Red Blood Count 3.96 10^6/ul (4.0-5.4); Red Cell Distribution Width 14 % (10.5-15); White Blood Count 7.5 10^3/ul (3.5-10.8)
[2017-03-22 05:55] LABS: BUN/Creatinine Ratio 8.9 (8-20); Calcium 8.1 mg/dL (8.6-10.3); EGFR African American 71.9 (>60); EGFR Non-African American 55.9 (>60); Potassium 4.1 mmol/L (3.5-5.0)
[2017-03-22 07:20] VITALS: BP 145/83
[2017-03-22] MEDS: Docusate CAP* 100 MG PO SCH (07:38)
[2017-03-22] MEDS: levETIRAcetam TAB* 500 MG PO SCH (07:58)
[2017-03-22] MEDS: HYDROmorphone INJ* 2 MG/ML CARPUJECT SYRINGE IV PRN (07:59)
[2017-03-22] MEDS: Ondansetron INJ* 2 MG/ML VIAL IV PRN (08:00)
[2017-03-22] MEDS: Folic Acid TAB* 1 MG PO SCH (08:00)
[2017-03-22] MEDS ORDERED: levETIRAcetam TAB* 500 MG ONE (08:09)
[2017-03-22] MEDS: Polyethylene Glycol 3350* 17 GM PACKET PO PRN (08:10)
[2017-03-22] MEDS ORDERED: Vancomycin Trough Check NOTE FOLLOW UP ONE (13:30)
--- NOTE | 2017-03-22 15:46 | DS ---
DISCHARGE SUMMARY: DATE OF ADMISSION: 03/18/17 DATE OF DISCHARGE: 03/22/17 ADMITTING PROVIDER: Miles Lynn MD ATTENDING PHYSICIAN: Garcia Valdovinos MD (ICU) and Kurt Ordonez MD Primary Care Physician: Dannielle Jimenes MD ([facility]) CHIEF COMPLAINT: Left foot pain, fall. PRINCIPAL DIAGNOSIS: Serratia marcescens bacteremia; sepsis; likely urinary tract infection source. SECONDARY DIAGNOSES/PMH: Include: 1. Ankylosing spondylitis, on Humira and methotrexate. 2. Epilepsy. 3. Insomnia (severe). 4. History of renal cell carcinoma, status post nephrectomy. 5. C7 fracture, status post fusion. HISTORY OF PRESENT ILLNESS AND HOSPITAL COURSE: Mr. Chapman is a 51-year-old male with past medical history as above, who was awakened from sleep day prior to admission with left foot pain with impressive reddening. The next day, on day of admission, he tried to stand when he had a sharp pain and he fell, was generally weak, unable to get up for about 45 minutes. He called the EMS who transferred to [facility] Emergency Room. Please see H and P of 03/18/17 for further details. He was noted to have soft blood pressures, initially 95/75, but then later dipping to high 60/40. He initially had a leukocytosis of 21.3, platelets of 124. Temperature of maximum 102.1 on night of admission. He had a elevated creatinine, initially 1.58, but quickly rising to 1.94 in the screedman/laborer of hospital day #2. His initial blood cultures, both anaerobic and aerobic were positive for Serratia marcescens. His initial urinalysis was notably suspicious for infection with leukocyte esterase 3+, wbc's 3+, 1+ bacteria; however, the patient received antibiotics prior to urine culture. He was eventually admitted to the intensive care unit for severe sepsis secondary to Serratia marcescens bacteremia and likely UTI. His methotrexate and Humira were held given the risk for the continued immunosuppression. He received a CT chest, abdomen and pelvis without contrast on 03/19/17, which demonstrated no acute pathology in the chest., had cholelithiasis without pericholecystic inflammatory changes. No evidence to suggest acute cholecystitis. He had a CT extremity lower left without contrast which did not show any definite acute abnormality including no fracture, signs of osteomyelitis or drainable fluid collection. His left tendon and foot pain resolved during the course of admission. He was evaluated by bulldogger Garcia Valdovinos MD, eventually stabilized on cefepime and vanc and then transferred to the floor with reduction in leukocytosis and defervescence of fevers. Dr. Martinez of Rheumatology also consulted daily. The patient had repeat blood cultures which were drawn on 03/20/17 and had been negative for any growth to date (24 hours). As mentioned, the urine culture on both 03/19/17 and 03/20/17 were not suspicious for infection, but have been previously obtained after antibiotics were started. Dr. Ludwig of Infectious Disease recommended a total 3- week course of antibiotics with Levaquin as an outpatient x 17 day for potential UTI/ prostatitis. He had a bladder scan the day prior to admission which did not show any evidence of retained urine. The patient will need to follow up with Rheumatology and his primary care physician. DISCHARGE MEDICATIONS: Include: 1. Levaquin 750 mg tablet p.o. daily for additional 17 tablets (for a total of 21- day course). 2. Morphine sulfate extended release 20 mg p.o. q8h prn., (NEW, has used in past) 14 capsules until followup with Dr. Martinez and PCP. 3. Prilosec 20 mg p.o. daily. 4. MiraLAX 17g, p.o. daily. 5. Keppra 500 mg tabs with 1500 mg p.o. q.a.m. and 2000 mg p.o. q.p.m. 6. Zanaflex 12 mg p.o. at bedtime. 7. Tylenol 650 mg p.o. q.6 hours, p.r.n. 8. Suvorexant (Soma) 20 mg p.o. q.h.s. for insomnia. 9. Remeron 15 mg tab q.h.s. 10. Gabapentin 600 mg p.o. q.h.s. 11. Folic acid 1 mg p.o. q.a.m. (he will likely be restarting methotrexate per verbal report). 12. Xanax 4 to 5 mg p.o. q.h.s. Of note, the new medications are the Levaquin and morphine sulfate extended release. Of note, his naltrexone 50 mg p.o. q.a.m. was stopped along with the methotrexate 12.5 mg, p.o. weekly and adalimumab (Humira) 40 mg subcutaneous q.14 days. DISPOSITION: Home. RESTRICTIONS: None, although cautioned with reintroduction of morphine sulfate extended release, which patient was on prior to naltrexone 1 year ago, including caution and avoidance of driving. The patient takes a bus for his sole source of transportation. FOLLOWUP: Please follow up with Dr. Martinez, Dr. Jimenes. Please return to the emergency room with any signs of fevers, chills, lightheadedness, dizziness, low blood pressure, foul-smelling urine. TIME SPENT ON DICTATION: 35 minutes. [id number]/[facility] #: [id number]
--- NOTE | 2017-03-24 04:34 | CONS ---
CONSULTATION REPORT: DATE OF CONSULT: 03/21/17 REQUESTING PHYSICIAN: Dr. Valdovinos. CONSULTING SERVICE: Infectious Disease. REASON FOR CONSULTATION: Serratia sepsis. IMPRESSION: Serratia on 2 of 2 blood culture bottles drawn on admission in the setting of severe sepsis. He had a urine culture sent 12 hours after antibiotics were given. The initial urinalysis at that time showed ketones, blood, leukocyte esterase, and white cells. Culture was negative which growth may have been suppressed by the dose of IV antibiotics before. He did not have any urinary tract symptoms either. Differential includes intraabdominal source that was CT abdomen and pelvis did now show any liver or intraabdominal abscess. He had left ankle and foot pain that brought him to the hospital but his exam was pretty benign. He does not have pain with weightbearing, he does not have an effusion, so I do not think he has a septic joint. Serratia would not be associated with infective endocarditis or other intravascular line of infection. He does have a fixation of hardware in the cervical spine which is at his baseline level of pain. He does not have spine tenderness to palpation, so I do not think he has a spine or hardware related infection. He did not have infiltrates and he does not have a cough, so pneumonia is unlikely. RECOMMENDATIONS: Agree with cefepime while he is here. Appears to have an acute kidney injury. Did not have hydronephrosis on his CT scan. We will also add a postvoid residual. Assuming the followup blood culture is negative, postvoid residual is normal, I will plan to change him to Levaquin 500 mg once a day for 21 days to cover urinary tract infection in a manner which will include acute prostatitis. HISTORY OF PRESENT ILLNESS: This is a 51-year-old man with ankylosing spondylitis, on Humira and methotrexate, admitted with left foot and ankle pain that woke him from sleep on the night of the . He had a foot x-ray at that time that showed osteoarthritis. There was no effusion or fracture. He had a white blood cell count of 21,000. He was febrile to 39 degrees and hypotensive into the 80s requiring vasopressors. He had a CT of the chest, abdomen and pelvis that showed cholelithiasis status post right nephrectomy. He had a CT of the leg on , showed no fracture or abscess. His ankle pain came on suddenly the night of admission. It was better when he pressed on it and better with weightbearing or moving the ankle joint as well. It has gotten better with narcotics and overtime, he is walking on it without any difficulty. He required pressors that his blood pressures normalized. He has had a fever since the 11th overnight. Followup blood cultures were taken are pending. Transthoracic echocardiogram was obtained that showed ejection fraction of 55%, mild mitral regurgitation. No vegetations. He did not have any dysuria or urinary frequency. He does not have nocturia. He does not know of previous urinary tract infections that he has had. PAST MEDICAL HISTORY: 1. Ankylosing spondylitis. 2. Insomnia. 3. Epilepsy. 4. Renal cell cancer status post right nephrectomy. 5. History of a fall and C7 fracture status post fusion as well as a lumbosacral fusion. MEDICATIONS: 1. Alprazolam. 2. Cefepime 2 g a day. 3. Docusate. 4. Gabapentin. 5. Dilaudid as needed. 6. Heparin subcutaneous injection. 7. Mirtazapine. 8. Vancomycin which was stopped. 9. Keppra. ALLERGIES: PENICILLIN, unknown reaction as a baby and LYRICA. FAMILY HISTORY: No recurrent infections. No tuberculosis. 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 No foreign travel recently. REVIEW OF SYSTEMS: A 14-point review of systems was negative except as noted above. PHYSICAL EXAM: Vital Signs: Temperature is 36.7, heart rate 80, respiratory rate 18, blood pressure 120/80, O2 sat 97% on room air. In general, he is awake , not in distress. Neurologic: He is oriented x3. Follows all commands. Moves all extremities. HEENT: There is no conjunctival hemorrhage. Oropharynx without lesions. Neck: Fused and immobile. There is no spine tenderness to palpation. Lymph Nodes: There is no cervical, supraclavicular, inguinal, axillary or epitrochlear lymphadenopathy. Heart: Regular rate and rhythm without murmurs, rubs or gallops. Lungs: Clear to auscultation bilaterally. Abdomen: Soft, nontender, nondistended. There is bowel sounds present. Skin: There is no rashes or splinter hemorrhages. Musculoskeletal: No spine tenderness to palpation or joint synovitis. The left foot and ankle, there is trace edema. There is no warmth or erythema. There is no tenderness or crepitus. There is no pain with ankle flexion, extension, pronation or supination. DIAGNOSTIC STUDIES/LAB DATA: White blood cell count 9, hemoglobin 13, platelets 121. Creatinine is 1.47. Bilirubin 1.2 Please see impressions and recommendation outlined above, which I discussed with Dr. Ordonez Thank you for asking me to see Mr. Chapman in consultation. [id number]/[facility] #: [id number] [facility] HOSPITALKatey
== END 2017-03-22 14:40 | disposition home or self-care (01) | DRG 720 ==
LOC: ED 15:22 → MED 20:59 → ICU 03-19 05:15 → MEDTELE 03-20 18:59
PROVIDERS: ADMIT Hospitalist; ATTEND Internal Medicine
PROC: 05H633Z Insertion of Infusion Device into Left Subclavian Vein, Percutaneous Approach (ICD-10-PCS; principal; 2017-03-20)
DX: A41.53 Sepsis due to Serratia (principal); N17.0 Acute kidney failure with tubular necrosis; R65.21 Severe sepsis with septic shock; J15.6 Pneumonia due to other Gram-negative bacteria; I95.9 Hypotension, unspecified; D69.6 Thrombocytopenia, unspecified; N39.0 Urinary tract infection, site not specified; M45.9 Ankylosing spondylitis of unspecified sites in spine; M19.072 Primary osteoarthritis, left ankle and foot; M19.071 Primary osteoarthritis, right ankle and foot; G47.01 Insomnia due to medical condition; G40.909 Epilepsy, unspecified, not intractable, without status epilepticus; Z85.53 Personal history of malignant neoplasm of renal pelvis; Z79.899 Other long term (current) drug therapy; Z88.0 Allergy status to penicillin; Z88.8 Allergy status to other drugs, medicaments and biological substances; Z90.5 Acquired absence of kidney
CPT/HCPCS: 36415; 70450; 71020; 71250; 74176; 80048; 80053; 80076; 80202; 81003; 81015; 82550; 82565; 83605; 84484; 84520; 84550; 85025; 85027; 85060; 85610; 85652; 85730; 86140; 87040; 87077; 87086; 87186; 87205; 87641; 90686; 93306; A9270-GY; J0692; J0696; J1170; J1644; J1885; J2270; J2405; J2765; J3370

== ENCOUNTER 2017-09-06 10:54 | Emergency (ER) | payer MEDICAID ==
[2017-09-06 11:07] VITALS: BP 139/90
--- NOTE | 2017-09-06 12:02 | UC ---
General HPI - HPI Summary HPI Summary: c/o going to [facility] yesterday night which changed his regular bedtime routine. He usually takes several medications to fight insomnia before and after bedtime and was intending to go to bed at 9pm but was still awake at 11p and had taken medications already. He went to his computer to play some music then he does not recolect what happened, he saw blood on the carpet, sat on chair then went to his bed. This morning noticed an abrassion on forehead, on some pain and a bruise on right forehead. The abrassion he covered with band- aid and resumed his normal routine, ate breakfast. Denies nausea, vomiting, dizziness, headache, numbness, imbalance, gait disturbance. States he feels as his usual with the exception of the bruise on his head. He has history of seizure disorder/sleep deprivation, states that for 10 years he slept an average of 3.5hrs per night and that since he has been on these medictions for insomnia in the last 3 months he has not slept this well in years. Last seizure was March or April - History of Current Complaint Chief Complaint: UCLaceration Stated Complaint: HEAD LAC Time Seen by Provider: 09/06/17 11:18 Hx Obtained From: Patient Onset/Duration: Sudden Onset, Lasting Hours Onset Severity: Mild Current Severity: Mild Pain Intensity: 3 Pain Location at: right forehaed Associated Signs & Symptoms: Positive: Recent Medication Changes - Allergy/Home Medications Allergies/Adverse Reactions: Allergies Allergy/AdvReac Type Severity Reaction Status Date / Time Penicillins Allergy Unknown Verified 09/06/17 11:02 Reaction Details pregabalin [From Lyrica] Allergy Headache Verified 09/06/17 11:02 Home Medications: Home Medications Adalimumab (NF) [Humira Pen (NF)] 40 mg SUBCUT SEE INSTRUCTIONS 09/06/17 [ History Confirmed 09/06/17] Naltrexone TAB* 4.5 mg PO DAILY 09/06/17 [History Confirmed 09/06/17] PMH/Surg Hx/FS Hx/Imm Hx Previously Healthy: Yes Neurological History: Seizures Psychological History: Other - insomnia Other Psychological History: insomnia Other History Of: Negative For: Anticoagulant Therapy - Surgical History Surgical History: Yes Surgery Procedure, Year, and Place: C7-FX WITH TITANIUM PLATE. 2006- [facility] nephrectomy for renal cell CA, 2008-[place] benign pulmonary nodule, 2009 -[facility] (right) cervical median branch block, 2010- [facility] metastatic liver tumor. w/radioablation - Family History Known Family History: Positive: None, Hypertension, Renal Disease - Renal transplant (father) - Social History Alcohol Use: Rare Substance Use Type: None Substance Use Comment - Amount & Last Used: MORPHINE, XANAX Smoking Status (MU): Never Smoked Tobacco Have You Smoked in the Last Year: No - Immunization History Most Recent Influenza Vaccination: 2013 Most Recent Tetanus Shot: unsure, possible 2009 Most Recent Pneumonia Vaccination: never Review of Systems Constitutional: Negative Neurological: Negative All Other Systems Reviewed And Are Negative: Yes Physical Exam Triage Information Reviewed: Yes Appearance: Well-Appearing, No Pain Distress, Well-Nourished Vital Signs: Initial Vital Signs Temp 98.1 F 09/06/17 10:58 Pulse 68 09/06/17 10:58 Resp 16 09/06/17 10:58 BP 139/90 09/06/17 10:58 Pulse Ox 99 09/06/17 10:58 Vital Signs Reviewed: Yes Eyes: Positive: Conjunctiva Clear ENT: Positive: Hearing grossly normal, Pharynx normal, TMs normal, Uvula midline Dental Exam: Normal Neck: Positive: Nontender, No Lymphadenopathy, Other: - loss of lordosis, s/p plate on c-spine Respiratory: Positive: Chest non-tender, Lungs clear, Normal breath sounds, No respiratory distress, No accessory muscle use Cardiovascular: Positive: RRR, No Murmur, Pulses Normal, Brisk Capillary Refill Abdomen Description: Positive: Nontender, No Organomegaly, Soft Bowel Sounds: Positive: Present Musculoskeletal: Positive: Strength Intact, ROM Intact, No Edema Neurological: Positive: Alert, Muscle Tone Normal, Other: - CN II-XII grossly intact, FROMx4, sensory intact, no ataxia, strength 5/5x4, DANDRE Course/Dx - Course Course Of Treatment: Patient has history of seizure disorder and sleep deprivation/insomnia who yesterday went for [employer] and had disruption of his sleep schedule. Fell head down on the computer last night and went to bed after that, this morning resuming his normal routine. Superficial abrassion on mid forehead and echymosis on right forehead. Denies headache, visual disturbance, nausea, vomiting, dizziness, unsteady gait, numbness or tingling, or incontinence. Instructed to go to ER if any occur, f/u neurologist for review of medication dosing. - Differential Dx - Multi-Symptom Provider Diagnoses: History of seizure disorder secondary to Sleep deprivation. Insomnia, overdose of sleep medication. Forehead abrassion Discharge - Sign-Out/Discharge Documenting (check all that apply): Discharge - Discharge Plan Condition: Stable Disposition: HOME Patient Education Materials: Insomnia (ED), Epilepsy (ED) Referrals: Dannielle Jimenes MD [Primary Care Provider] - - Billing Disposition and Condition Condition: STABLE Disposition: HOME
== END 2017-09-06 12:30 | disposition home or self-care (01) ==
LOC: UCEAST 10:54
DX: G40.509 Epileptic seizures related to external causes, not intractable, without status epilepticus (principal); T50.901A Poisoning by unspecified drugs, medicaments and biological substances, accidental (unintentional), initial encounter; Y92.009 Unspecified place in unspecified non-institutional (private) residence as the place of occurrence of the external cause; S00.81XA Abrasion of other part of head, initial encounter; W19.XXXA Unspecified fall, initial encounter; Y93.89 Activity, other specified; G47.00 Insomnia, unspecified; Z88.0 Allergy status to penicillin; Z88.8 Allergy status to other drugs, medicaments and biological substances
CPT/HCPCS: 99212; G0463

== ENCOUNTER 2018-03-03 17:17 | Emergency (ER) | payer MEDICAID ==
[2018-03-03] MEDS ORDERED: levETIRAcetam TAB* 500 MG PO ONE (18:29)
--- NOTE | 2018-03-03 18:40 | ED ---
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 Pert PMHx: sx mostly occurring when he doesnt sleep enough. Pt is on Keppra 1500mg BID. He also takes a sleep medication. He has been recently stressed lately due to have a lot of work. He only slept about 4 hours last night. Pt was being seen by Dr. Bernabe neuro. His last sz was one year ago. He is feeling OK at bedside. Pt has a known neck compound fx and has limited ROM. - History of Current Complaint Chief Complaint: EDSeizure Stated Complaint: SEIZURES Time Seen by Provider: 03/03/18 18:05 Hx Obtained From: Patient Onset/Duration: Sudden Onset, Started hours ago, Resolved Number of Seizures: 1 Pain Intensity: 0 Pain Scale Used: 0-10 Numeric - Additional Pertinent History Primary Care Physician: [id number] - Allergy/Home Medications Allergies/Adverse Reactions: Allergies Allergy/AdvReac Type Severity Reaction Status Date / Time Penicillins Allergy Unknown Verified 09/06/17 11:02 Reaction Details pregabalin [From Lyrica] Allergy Headache Verified 09/06/17 11:02 PMH/Surg Hx/FS Hx/Imm Hx Previously Healthy: No Endocrine/Hematology History: Denies: Hx Anticoagulant Therapy, Hx Bone Marrow Disease, Hx Diabetes, Hx Sickle Cell Disease, Hx Thyroid Disease, Hx Anemia, Hx Unexplained Bleeding Cardiovascular History: Denies: Hx Hypertension, Hx Pacemaker/ICD Respiratory History: Denies: Hx Asthma, Hx Chronic Obstructive Pulmonary Disease (COPD), Hx Pulmonary Embolism, Hx Sleep Apnea GI History: Reports: Other GI Disorders - 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, SURGERY 03/2010, [facility] Denies: Hx Jaundice, Hx Ulcer History: Reports: Other Problems/Disorders - S/P RIGHT NEPHRECTOMY 06/09/05 - LEFT KIDNEY FUNCTIONS WELL Denies: Hx Renal Disease Musculoskeletal History: Reports: Hx Arthritis, Hx Back Problems, Hx Orthopedic Injury - 2009 C7 neck fx, Other Musculoskeletal History - ankylosing spondylitis , DRAINED FLUID IN LEFT KNEE IN 09/2014 AT [facility] Denies: Hx Bursitis, Hx Tendonitis Sensory History: Reports: Hx Contacts or Glasses, Hx Vision Problem Denies: Hx Hearing Aid Opthamlomology History: Reports: Hx Contacts or Glasses, Hx Vision Problem Neurological History: Reports: Hx Seizures - SINCE October- UNDER CONTROL WITH MEDICATION, 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 C2-C7 fusion done, Other Neuro Impairments/Disorders - SPINAL TRAUMA- BROKE NECK 4 YEARS C2- C7, COMPLEX FRACTURE OF C7 05/2010 Denies: Hx Headaches, Hx Migraine, Hx Nerve Disease, Hx Transient Ischemic Attacks (TIA) Psychiatric History: Denies: Hx Anxiety, Hx Depression, Hx Panic Disorder, Hx Substance Abuse - Cancer History Cancer Type, Location and Year: 2005- [facility] nephrectomy for renal cell CA , 2007-[place] benign pulmonary nodule, 2009 -[facility] (right) cervical median branch block, 2009- [facility] metastatic liver tumor. w/ radioablation Hx Chemotherapy: No Hx Radiation Therapy: No - Surgical History Surgery Procedure, Year, and Place: C7-FX WITH TITANIUM PLATE. 2005- [facility] nephrectomy for renal cell CA, 2008-[place] benign pulmonary nodule, 2009 -[facility] (right) cervical median branch block, 2009- [facility] metastatic liver tumor. w/radioablation Hx Anesthesia Reactions: No - Immunization History Date of Tetanus Vaccine: unk Infectious Disease History: No Infectious Disease History: Denies: Hx Hepatitis, Hx Human Immunodeficiency Virus (HIV), Traveled Outside the in Last 30 Days - Family History Known Family History: Positive: Hypertension, Renal Disease - Renal transplant ( father) - Social History Occupation: Employed Full-time, Disabled Lives: Alone Alcohol Use: Rare Hx Substance Use: Yes Substance Use Type: Reports: None Substance Use Comment - Amount & Last Used: MORPHINE, XANAX Hx Tobacco Use: No Smoking Status (MU): Never Smoked Tobacco Have You Smoked in the Last Year: No Review of Systems Negative: Fever Negative: Cough Neurological: Other - 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 GENERAL: Patient is a well-developed and nourished M who is lying comfortable in the stretcher. Patient is not in any acute respiratory distress. HEAD AND FACE: No signs of trauma. No ecchymosis, hematomas or skull depressions. No sinus tenderness. EYES: PERRLA, EOMI x 2, No injected conjunctiva, no nystagmus. EARS: Hearing grossly intact. Ear canals and tympanic membranes are within normal limits. MOUTH: Oropharynx within normal limits. NECK: Supple, trachea is midline, no adenopathy, no JVD, no carotid bruit, no c- spine tenderness. Decreased ROM of neck due to previous surgery. CHEST: Symmetric, no tenderness at palpation LUNGS: Clear to auscultation bilaterally. No wheezing or crackles. CVS: Regular rate and rhythm, S1 and S2 present, no murmurs or gallops appreciated. ABDOMEN: Soft, non-tender. No signs of distention. No rebound no guarding, and no masses palpated. Bowel sounds are normal. EXTREMITIES: FROM in all major joints, no edema, no cyanosis or clubbing. NEURO: Alert and oriented x 3. No acute neurological deficits. Speech is normal and follows commands. SKIN: Dry and warm Triage Information Reviewed: Yes Vital Signs On Initial Exam: Initial Vitals Temp Pulse Resp BP Pulse Ox 97.7 F 62 16 132/95 98 03/03/18 17:58 03/03/18 17:58 03/03/18 17:58 03/03/18 17:58 03/03/18 17:58 Vital Signs Reviewed: Yes Diagnostics - Vital Signs Vital Signs Temp Pulse Resp BP Pulse Ox 03/03/18 17:58 97.7 F 62 16 132/95 98 - Laboratory Result Diagrams: 03/03/18 19:22 03/03/18 19:22 Lab Statement: Any lab studies that have been ordered have been reviewed, and results considered in the medical decision making process. Re-Evaluation - Re-Evaluation First Eval Re-Evaluation Time: 20:19 Comment: Discussed results of labs with patient. Patient informed of plan to discharge and have him follow up with his neurologist tomorrow. He understands and is agreeable with this. Course/Dx - Course Assessment/Plan: Patient is a 52 y/o M w/ c/o seizure onsetting today. Patient reports seizures mostly occur when he does not sleep. Patient takes Keppra, 1500 mg BID, and sleep medication. He reports recent stress from work and sleeping [address] Bernabe is his neurologist, last seizure was a year ago. Patient has a known neck compound Fx and has limited ROM. During ED course, patient was given 1500 mg Keppra. Urine and blood was collected. UA showed 1+(30 mg/dl). Physical exam showed no abnormal findings. Discussed results of labs with patient. Patient informed of plan to discharge and have him follow up with his neurologist tomorrow. Follow up care instructions were discussed as well. Patient understands and is agreeable with this plan. Dx of seizure. - Diagnoses Provider Diagnoses: Seizure Discharge - Sign-Out/Discharge Documenting (check all that apply): Patient Departure - discharge - Discharge Plan Condition: Stable Disposition: HOME Patient Education Materials: Nonepileptic Seizures (ED) Referrals: Dannielle Jimenes MD [Primary Care Provider] - Kaleigh Bernabe MD [Medical Doctor] - 2 Days Additional Instructions: YOU ARE ADVISED TO SLEEP EIGHT HOURS A DAY. RETURN TO THE EMERGENCY DEPARTMENT FOR CHANGING OR WORSENING SYMPTOMS. FOLLOW UP WITH NEUROLOGIST IN 1-2 DAYS. - Attestation Statements Document Initiated by Scribe: Yes Documenting Scribe: Karrie Samaniego Provider For Whom Scribe is Documenting (Include Credential): Dr. Nestor Baker MD Scribe Attestation: I, Karrie Samaniego, scribed for Dr. Nestor Baker MD on at 2130.
[2018-03-03 19:44] LABS: Hematocrit 49 % (42-52); Hemoglobin 16.6 g/dl (14.0-18.0); Mean Corpuscular HGB Conc 34 g/dl (31-36); Mean Corpuscular Hemoglobin 34 pg (27-31); Mean Corpuscular Volume 101 fL (80-94); Red Blood Count 4.87 10^6/ul (4.00-5.40); Red Cell Distribution Width 15 % (10.5-15); White Blood Count 8.5 10^3/ul (3.5-10.8)
[2018-03-03 19:48] LABS: EGFR Non-African American 72.1 (>60)
[2018-03-03 20:05] LABS: Urine Appearance Clear; Urine Color Yellow
[2018-03-03 20:06] LABS: Urine Ketones NEG (Negative); Urine Urobilinogen NEG (Negative)
[2018-03-03 20:07] LABS: Urine Blood NEG (Negative); Urine Protein 1+(30 mg/dL) (Negative)
[2018-03-03] MEDS ORDERED: tiZANidine TAB* 2 MG PO ONE (20:20)
[2018-03-03 20:48] LABS: ABS Basophils 0 10^3/ul (0-0.2); ABS Eosinophils 0.1 10^3/ul (0-0.6); ABS Lymphocytes 1.9 10^3/ul (1.0-4.8); ABS Monocytes 0.5 10^3/ul (0-0.8); ABS Neutrophils 6.1 10^3/ul (1.5-7.7); ABS Nucleated RBC 0 10^3/ul; Eosinophil % 1.3 % (0-6); Lymphocyte % 22.2 % (25-47); Nucleated Red Blood Cells % 0.1
[2018-03-03 21:34] VITALS: BP 134/84
== END 2018-03-03 21:33 | disposition home or self-care (01) ==
LOC: ED 17:17
DX: R56.9 Unspecified convulsions (principal); Z88.0 Allergy status to penicillin
CPT/HCPCS: 36415; 80053; 81003; 81015; 85025; 99282; A9270-GY

== ENCOUNTER 2019-05-13 07:01 | Observation (INO) | payer MEDICAID ==
--- OUTSIDE RECORDS SUMMARY | 2019-05-13 07:42 | XMS REPORT | Continuity of Care Document ---
:1965 External Reference #:[id number] Author Name Jorge Luis Martinez M.D. (transmitted by agent of provider Madisyn Mchugh) Address [address] [place] [address] Care Team Providers Name Role Phone Dannielle Jimenes MD - Internal Care Team Information Continuous Improvement Coach Medicine Problems Active Problems Provider Date Obstructive sleep apnea of adult Daniela Cevallos DNP, RN, CARTOGRAPHIC DESIGNER- Onset: 08/2013 Note: worse during REM Refractory localization-related epilepsy Kaleigh Bernabe MD Onset: 03/01/2015 Insomnia disorder related to known organic factor Kaleigh Bernabe MD Onset: Rheumatoid arthritis of cervical spine Kaleigh Bernabe MD Onset: 03/01/2015 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 Kaleigh Bernabe MD Onset: 2014 partial seizures Knee joint effusion Sung Francois MD Onset: 12/08/2015 Localized, primary osteoarthritis Sung Francois MD Onset: 12/08/2015 Insomnia Kaleigh Bernabe MD Onset: 04/22/2017 Social History Type Date Description Comments Sex Unknown Tobacco Use Start: Unknown Never Smoked Cigarettes Tobacco Use Start: Unknown Never Smoked Cigars Tobacco Use Start: Unknown Never Smoked A Pipe Smoking Status Reviewed: 04/12/19 Never Smoked A Pipe ETOH Use Denies alcohol use Tobacco Use Start: Unknown Patient has never smoked Recreational Drug Use Denies Drug Use Exercise Type/Frequency Exercises regularly Allergies, Adverse Reactions, Alerts Active Allergies Reaction Severity Comments Date Temazepam 03/10/2014 Penicillin 03/10/2014 Pregabalin 03/10/2014 Medications Active Medications SIG Qnty Indications Ordering Date Provider Knee Sleeve/Open Use daily to help 12units Jorge Luis Martinez, 04/12/2019 Patella/Medium/Neopr give support to the M.D. citlalli left knee with Misc walking Humira Pen inject 40 mg 2units Jorge Luis Martinez, 03/04/2018 40mg/0.8ML subcutaneously every M.D. PNKT other week Naltrexone 4.5MG Take One Capsule By 90units Jorge Luis Martinez, 01/06/2018 (Lactose) Mouth Daily M.D. Methotrexate take 3 tablets by 60tabs Jorge Luis Martinez, 09/30/2017 2.5mg mouth once weekly on M.D. Tablets tuesdays Folic Acid Take One Tablet By 90tabs Jorge Luis Martinez, 09/30/2017 1mg Mouth Once Daily M.D. Tablets Compression please use daily as 2units M45.9 Jorge Luis Martinez, 04/15/2017 Stockings needed for leg/foot M.D. Misc swelling Levetiracetam 3 by mouth twice a 180tabs G40.219 Magdy SMilan 03/01/2015 500mg day Bc Beard Tablets Tizanidine HCL 3 tab po at bedtime 90caps Unknown 4mg Capsules Mirtazapine one by mouth at Unknown 15mg bedtime Tablets Alprazolam 2- 2.5 tabs po at hs Unknown 2mg Tablets Gabapentin 1-2 tabs by mouth Unknown 600mg every day at bedtime Tablets as directed Naltrexone Low Dose 1 by mouth every day 90units Unknown (compounded for daily 4.5mg Powder use) Belsomra 15MG i qhs Unknown Medications Administered in Office Medication SIG Qnty Indications Ordering Provider Date Triamcinolone (Kenalog) Jorge Luis Martinez M.D. 11/25/2016 Injection Triamcinolone (Kenalog) Jorge Luis Martinez M.D. 02/15/2016 Injection Triamcinolone (Kenalog) Sung Francois MD 11/23/2015 Injection Immunizations CPT Code Status Date Vaccine Reaction Lot # [id number] Given 06/20/2016 Pneumonia Vaccine 59087 Given 03/13/2016 Influ Virus Vaccine, no reaction noted [id number] Quadrivalent, Split Virus, [place] [id number] Given 07/21/2012 Pneumococcal Conjugate Vaccine 13 Valent For Intramuscular Use Vital Signs Date Vital Result Comment 04/12/2019 8:28am Height 71 inches 5'11" Weight 200.00 lb Heart Rate 71 /min BP Systolic Sitting 122 mmHg BP Diastolic Sitting 80 mmHg Body Temperature 97.8 F Pain Level 0 O2 % BldC Oximetry 98 % BMI (Body Mass Index) 27.9 kg/m2 02/26/2019 8:41am Height 71 inches 5'11" Weight 200.00 lb Heart Rate 60 /min BP Systolic Sitting 100 mmHg BP Diastolic Sitting 82 mmHg Respiratory Rate 20 /min BMI (Body Mass Index) 27.9 kg/m2 Results Test Acquired Date Facility Test Result H/L Range Note Laboratory test 01/26/2019 [facility] C Reactive 9.54 mg/L High <8.[address] [place] [address] [phone] Erythrocyte Sed Rate 3 mm/Hr Normal 0-19 Laboratory test 01/12/2019 [facility] Erythrocyte Sed 7 mm/Hr Normal 0-[address] [place] [address] [phone] C Reactive Protein 17.83 mg/L High <8.01 2 Comp Metabolic 01/12/2019 [facility] Sodium 140 mmol/L Normal 135-[address] [place] [address] [phone] Chloride 103 mmol/L Normal 101-111 Co2 Carbon Dioxide 33 mmol/L High 22-32 Glucose 89 mg/dL Normal 70-100 Blood Urea Nitrogen 9 mg/dL Normal 6-24 Creatinine 1.00 mg/dL Normal 0.67-1.17 BUN/Creatinine Ratio 9.0 Normal 8-20 Calcium 9.3 mg/dL Normal 8.6-10.3 Total Protein 6.5 g/dL Normal 6.4-8.9 Albumin 4.1 g/dL Normal 3.2-5.2 Globulin 2.4 g/dL Normal 2-4 Albumin/Globulin Ratio 1.7 Normal 1-3 Total Bilirubin 0.40 mg/dL Normal 0.2-1.0 Alkaline Phosphatase 51 U/L Normal 34-104 Alt 25 U/L Normal 7-52 Ast 24 U/L Normal 13-39 Egfr Non- 78.5 >60 Egfr 94.9 >60 3 Potassium 5.1 mmol/L High 3.5-5.0 Anion Gap 4 mmol/L Normal 2-11 CBC Auto 01/12/2019 [facility] White Blood 5.6 10^3/uL Normal 3.5-10.[address] [place] [address] [phone] Red Blood Count 4.53 10^6/uL Normal 4.18-5.48 Hemoglobin 15.4 g/dL Normal 14.0-18.0 Hematocrit 45 % Normal 42-52 Mean Corpuscular Volume 98 fL High 80-94 Mean Corpuscular Hemoglobin 34 pg High 27-31 Mean Corpuscular HGB Conc 35 g/dL Normal 31-36 Red Cell Distribution Width 14 % Normal 10-15 Platelet Count 278 10^3/uL Normal 150-450 Mean Platelet Volume 7.2 fL Low 7.4-10.4 Abs Neutrophils 2.8 10^3/uL Normal 1.5-7.7 Abs Lymphocytes 2.3 10^3/uL Normal 1.0-4.8 Abs Monocytes 0.4 10^3/uL Normal 0-0.8 Abs Eosinophils 0.1 10^3/uL Normal 0-0.6 Abs Basophils 0.0 10^3/uL Normal 0-0.2 Abs Nucleated RBC 0.0 10^3/uL Granulocyte % 50.4 % Lymphocyte % 40.6 % Monocyte % 6.8 % Eosinophil % 1.7 % Basophil % 0.5 % Nucleated Red Blood Cells % 0.1 Vitamin B12 01/12/2019 [facility] Vitamin B12 553 pg/mL Normal 180-9[address] [place] [address] [phone] Folic Acid (Folate) > 20.00 ng/mL >3.99 5 Laboratory 01/12/2019 [facility] TSH (Thyroid 3.04 Normal 0.34 -5.60 6 test finding [facility] DRIVE Stim Horm) mcIU/[place] [address] [phone] Thyroperoxidase AB 2.15 IU/mL Normal <9 7 Urinalysis Profile 01/12/2019 [facility] [place] [address] [phone] Urine Appearance Clear Urine Specific [place]kin 1.005 Low 1.010-1.030 Urine pH 6.0 Normal 5-9 Urine Urobilinogen Negative Negative Urine Ketones Negative Negative Urine Protein Negative Negative Urine Leukocytes 1+ Abnormal Negative Urine Blood Negative Negative Urine Nitrite Negative Negative Urine Bilirubin Negative Negative Urine Glucose Negative Negative Urine White Blood Cell 2+(11-20/hpf) Abnormal Absent Urine Red Blood Cell Trace(0-2/hpf) Absent Urine Bacteria Absent Absent Urine Squamous Epithelial Cell Present Abnormal Absent Urine Culture And 01/12/2019 [facility] Urine SEE RESULT [address] [place] [address] [phone] CBC Auto Diff 10/29/2018 [facility] White Blood 6.8 10^3/uL Normal 3.5-[address] Count 0.8 [place] [address] [phone] Red Blood Count 4.77 10^6/uL Normal 4.18-5.48 Hemoglobin 16.0 g/dL Normal 14.0-18.0 Hematocrit 46 % Normal 42-52 Mean Corpuscular Volume 97 fL High 80-94 Mean Corpuscular Hemoglobin 34 pg High 27-31 Mean Corpuscular HGB Conc 34 g/dL Normal 31-36 Red Cell Distribution Width 14 % Normal 10.5-15 Platelet Count 171 10^3/uL Normal 150-450 Mean Platelet Volume 7.7 fL Normal 7.4-10.4 Abs Neutrophils 3.6 10^3/uL Normal 1.5-7.7 Abs Lymphocytes 2.7 10^3/uL Normal 1.0-4.8 Abs Monocytes 0.4 10^3/uL Normal 0-0.8 Abs Eosinophils 0.1 10^3/uL Normal 0-0.6 Abs Basophils 0.0 10^3/uL Normal 0-0.2 Abs Nucleated RBC 0.0 10^3/uL Granulocyte % 53.5 % Lymphocyte % 39.6 % Monocyte % 5.7 % Eosinophil % 0.8 % Basophil % 0.4 % Nucleated Red Blood Cells % 0.2 Comp Metabolic 10/29/2018 [facility] Sodium 139 mmol/L Normal 135-[address] [place] [address] [phone] Chloride 103 mmol/L Normal 101-111 Co2 Carbon Dioxide 31 mmol/L Normal 22-32 Calcium 9.4 mg/dL Normal 8.6-10.3 Albumin 4.5 g/dL Normal 3.2-5.2 Total Bilirubin 0.50 mg/dL Normal 0.2-1.0 Glucose 83 mg/dL Normal 70-100 Blood Urea Nitrogen 13 mg/dL Normal 6-24 Creatinine 1.04 mg/dL Normal 0.67-1.17 BUN/Creatinine Ratio 12.5 Normal 8-20 Total Protein 6.8 g/dL Normal 6.4-8.9 Globulin 2.3 g/dL Normal 2-4 Albumin/Globulin Ratio 2.0 Normal 1-3 Alkaline Phosphatase 51 U/L Normal 34-104 Alt 26 U/L Normal 7-52 Egfr Non- 75.0 >60 Egfr 90.7 >60 9 Potassium TNP mmol/L 3.5-5.0 10 Anion Gap 5 mmol/L Normal 2-11 Ast TNP U/L 13-39 11 1 Please check labs this week 2 Please check labs this week 3 Because ethnic data is not always readily available, this report includes an eGFR for both -Americans and non- Americans. The National Kidney Disease Education Program (NKDEP) does not endorse the use of the MDRD equation for patients that are not between the ages of 18 and 70, are , have extremes of body size, muscle mass, or nutritional status, or are non- or non-. According to the National Kidney Foundation, irrespective of diagnosis, the stage of the disease is based on the level of kidney function: Stage Description GFR(mL/min/1.73 m(2)) 1 Kidney damage with normal or decreased GFR 90 2 Kidney damage with mild decrease in GFR 60-89 3 Moderate decrease in GFR 30-59 4 Severe decrease in GFR 15-29 5 Kidney failure <15 (or dialysis) 4 Normal Range 180 to 914 Indeterminate Range 145 to 180 Deficient Range <145 5 Please check labs this week 6 Please check labs this week 7 Please check labs this week 8 SEE RESULT BELOW Name: MANDEEP SORIANO : [address]: Jorge Luis Martinez MD Acct: [id number] Unit: [id number] AGE: 53 Location: LAB Re01/12/19 SEX: M Status: REG REF SPEC: [id number] ISIDRO: 01/12/[address]: Jorge Luis Martinez MD REQ: [id number] RECD: 01/12/19 STATUS: COMP _ SOURCE: URINE SPDESC: ORDERED: Urine Culture Procedure Result Reported Site Urine Culture Final 01/13/19- 0859 ML No Growth (<1,000 CFU/mL) * ML - Main Lab . END OF REPORT DEPARTMENT OF PATHOLOGY, [address] [place] [address] Jeison Gonzalez M.D. Director [facility] # [id number] 9 Because ethnic data is not always readily available, this report includes an eGFR for both -Americans and non- Americans. The National Kidney Disease Education Program (NKDEP) does not endorse the use of the MDRD equation for patients that are not between the ages of 18 and 70, are , have extremes of body size, muscle mass, or nutritional status, or are non- or non-. According to the National Kidney Foundation, irrespective of diagnosis, the stage of the disease is based on the level of kidney function: Stage Description GFR(mL/min/1.73 m(2)) 1 Kidney damage with normal or decreased GFR 90 2 Kidney damage with mild decrease in GFR 60-89 3 Moderate decrease in GFR 30-59 4 Severe decrease in GFR 15-29 5 Kidney failure <15 (or dialysis) 10 Specimen Hemolyzed. Result may not be valid. Unable to report test result due to hemolysis. 11 Unable to report test result due to hemolysis. Procedures Date Code Description Status 01/26/2019 77729 Nerve Conduction 03-04 Studies Completed 01/26/2019 06034 Needle Electromyography Complete, Five Or More Muscles Completed Studied Medical Devices Description No Information Available Encounters Type Date Location Provider Dx Diagnosis Office Visit 02/26/2019 [facility] Magdy Cramer G40.219 Local-rel 8:30a Bc Beard symptc epi w cmplx part seiz, ntrct, w/o stat epi Z79.899 Other predatory animal exterminator (current) drug therapy Office Visit 01/07/2019 9:00a Rheumatology Jorge Luis M45.9 [facility] M.D. spondylitis of unspecified sites in spine Z79.899 Other halfway (current) drug therapy D69.6 Thrombocytopenia, unspecified M50.30 Other cervical disc degeneration, unsp cervical region R20.8 Other disturbances of skin sensation Assessments Date Code Description Provider 04/12/2019 M45.9 Ankylosing spondylitis of unspecified sites Jorge Luis Martinez M.D. in spine 04/12/2019 D69.6 Thrombocytopenia, unspecified Jorge Luis Martinez M.D. 04/12/2019 R20.8 Other disturbances of skin sensation Jorge Luis Martinez M.D. 04/12/2019 Z79.899 Other predatory animal exterminator (current) drug therapy Jorge Luis Martinez M.D. 02/26/2019 G40.219 Localization-related (focal) (partial) Magdy Beard M.D. symptomatic epilepsy and epileptic syndromes with complex partial seizures, intractable, without status epilepticus 02/26/2019 Z79.899 Other halfway (current) drug therapy Magdy Beard M.D. 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 in spine 01/07/2019 Z79.899 Other halfway (current) drug therapy Jorge Luis Martinez M.D. 01/07/2019 D69.6 Thrombocytopenia, unspecified Jorge Luis Martinez M.D. 01/07/2019 M50.30 Other cervical disc degeneration, Jorge Luis Martinez M.D. unspecified cervical region 01/07/2019 R20.8 Other disturbances of skin sensation Jorge Luis Martinez M.D. Plan of Treatment Future Appointment(s):07/13/2019 8:20 am - Jorge Luis Martinez M.D. at [facility]03/03/2020 8:30 am - Magdy Beard M.D. at [facility] [id number]/12/2019 - Jorge Luis Martinez M.D.M45.9 Ankylosing spondylitis of unspecified sites in spineComments:We will check xrays of your cervical spine and teeth to evaluate for malalignment of your teeth fromAS. We will check neck filmsPlease avoid trauma to the spine; if osteopenia is seen we will need a bone density to assess your fracture riskFollow up:Follow up in 3 months or sooner if ofzrpvQ93.6 Thrombocytopenia, bzitiwmxeduJ01.8 Other disturbances of skin sensationFollow up:Follow up in 3 months or sooner if bppvesV94.899 Other halfway (current) drug therapyFollow up:Follow up in 3 months or sooner if needed Functional Status Description No Information Available Mental Status Description No Information Available Referrals Description No Information Available
[2019-05-13] MEDS ORDERED: Lactated Ringers 1000 ML Bag* 1,000 ML IV ONE (08:12)
[2019-05-13 08:22] LABS: ABS Eosinophils 0.1 10^3/ul (0-0.6); ABS Lymphocytes 2.4 10^3/ul (1.0-4.8); ABS Monocytes 0.5 10^3/ul (0-0.8); ABS Neutrophils 2.6 10^3/ul (1.5-7.7); Eosinophil % 1.2 %; Hematocrit 46 % (42-52); Lymphocyte % 42.4 %; Mean Corpuscular HGB Conc 35 g/dL (31-36); Mean Corpuscular Hemoglobin 33 pg (27-31); Mean Corpuscular Volume 96 fL (80-94); Mean Platelet Volume 7.6 fL (7.4-10.4); Nucleated Red Blood Cells % 0.1; Platelet Count 190 10^3/uL (150-450); Red Blood Count 4.78 10^6 /uL (4.18-5.48); Red Cell Distribution Width 14 % (10-15); White Blood Count 5.6 10^3/uL (3.5-10.8)
--- NOTE | 2019-05-13 08:25 | ED ---
Dizziness - HPI Summary HPI Summary: This patient is a 53 year old M with a history of seizures on 1500mg Keppra BID presenting to ED with a chief complaint of falling since 24 hours ago. Yesterday morning, patient woke up feeling a headache. The headache got worse, so the patient took Tylenol. Patient went to work, which was stressful, so when he got back home he could not sleep. At about 2100 yesterday, patient was walking around the house and reports suddenly collapsing. Patient reports having weakness in the left leg so he had a conduction study done recently. Patient reports when he fell, he felt both dizzy and that his leg weakened. He does not think he had a seizure. He reports he has fallen a few more times in the past few days in similar manners. He thinks that his leg has been bothering him over the past few weeks, worsening in the past week. Patient reports feeling dizzy intermittently for the past few days. He also reports starting to have lots of headaches since a month ago, which is unusual for the patient as he does not usually get headaches. Patient thinks his sensations are due to overworking and emotional stress. 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 The patient rates the pain 0/10 in severity. Symptoms aggravated by work stress. Symptoms alleviated by nothing. Patient reports poor appetite recently, but probably due to the stress of work. Patient denies fever , chest pain, shortness of breath, abdominal pain, nausea, vomiting, edema. - History Of Current Complaint Chief Complaint: EDFall Stated Complaint: GENERAL PER EMS Time Seen by Provider: 05/13/19 08:11 Hx Obtained From: Patient Onset/Duration: Still Present, Gradually Timing: Intermittent Episode Lasting Severity Initially: Mild Severity Currently: Mild Character: Dizzy Aggravating Factor(s): Other - Recent work stress Alleviating Factor(s): Nothing Associated Signs And Symptoms: Positive: Decreased Oral Intake. Negative: Nausea, Vomiting, Chest Pain, SOB, Fever - Allergies/Home Medications Allergies/Adverse Reactions: Allergies Allergy/AdvReac Type Severity Reaction Status Date / Time Penicillins Allergy Unknown Verified 05/13/19 07:18 Reaction Details pregabalin [From Lyrica] Allergy Headache Verified 05/13/19 07:18 Iodinated Contrast Media AdvReac Nausea And Verified 05/13/19 09:28 Vomiting Home Medications: Home Medications Folic Acid TAB* [Folvite TAB*] 1 mg PO DAILY 05/13/19 [History Confirmed ] Methotrexate TAB* 7.5 mg PO WEEKLY 05/13/19 [History Confirmed 05/13/19] PMH/Surg Hx/FS Hx/Imm Hx Endocrine/Hematology History: Denies: Hx Anticoagulant Therapy, Hx Bone Marrow Disease, Hx Diabetes, Hx Sickle Cell Disease, Hx Thyroid Disease, Hx Anemia, Hx Unexplained Bleeding Cardiovascular History: Denies: Hx Hypertension, Hx Pacemaker/ICD Respiratory History: Denies: Hx Asthma, Hx Chronic Obstructive Pulmonary Disease (COPD), Hx Pulmonary Embolism, Hx Sleep Apnea GI History: Reports: Other GI Disorders - 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, SURGERY 03/2010, [facility] Denies: Hx Jaundice, Hx Ulcer History: Reports: Other Problems/Disorders - S/P RIGHT NEPHRECTOMY 06/09/05 - LEFT KIDNEY FUNCTIONS WELL Denies: Hx Renal Disease Musculoskeletal History: Reports: Hx Arthritis, Hx Back Problems, Hx Orthopedic Injury - 2009 C7 neck fx, Other Musculoskeletal History - ankylosing spondylitis , DRAINED FLUID IN LEFT KNEE IN 09/2014 AT [facility] Denies: Hx Bursitis, Hx Tendonitis Sensory History: Reports: Hx Contacts or Glasses, Hx Vision Problem Denies: Hx Hearing Aid Opthamlomology History: Reports: Hx Contacts or Glasses, Hx Vision Problem Neurological History: Reports: Hx Seizures - SINCE October- UNDER CONTROL WITH MEDICATION, 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 C2-C7 fusion done, Other Neuro Impairments/Disorders - SPINAL TRAUMA- BROKE NECK 4 YEARS C2- C7, COMPLEX FRACTURE OF C7 05/2010 Denies: Hx Headaches, Hx Migraine, Hx Nerve Disease, Hx Transient Ischemic Attacks (TIA) Psychiatric History: Denies: Hx Anxiety, Hx Depression, Hx Panic Disorder, Hx Substance Abuse - Cancer History Cancer Type, Location and Year: 2006- [facility] nephrectomy for renal cell CA , 2007-[facility] benign pulmonary nodule, 2008 -[facility] (right) cervical median branch block, 2009- [facility] metastatic liver tumor. w/ radioablation Hx Chemotherapy: No Hx Radiation Therapy: No - Surgical History Surgery Procedure, Year, and Place: C7-FX WITH TITANIUM PLATE. 2005- [facility] nephrectomy for renal cell CA, 2008-[facility] benign pulmonary nodule, 2009 -[facility] (right) cervical median branch block, 2010- [facility] metastatic liver tumor. w/radioablation Hx Anesthesia Reactions: No - Immunization History Date of Tetanus Vaccine: unk Infectious Disease History: No Infectious Disease History: Denies: Hx Hepatitis, Hx Human Immunodeficiency Virus (HIV), Traveled Outside the [place] in Last 30 Days - Family History Known Family History: Positive: Hypertension, Renal Disease - Renal transplant ( father) - Social History Alcohol Use: Rare Hx Substance Use: No Substance Use Type: Reports: None Substance Use Comment - Amount & Last Used: MORPHINE, XANAX Hx Tobacco Use: No Smoking Status (MU): Never Smoked Tobacco Have You Smoked in the Last Year: No Review of Systems Negative: Fever Negative: Chest Pain Negative: Shortness Of Breath Gastrointestinal: Other - Decreased appetite Negative: Abdominal Pain, Vomiting, Nausea Negative: Edema Neurological: Other - Dizziness Positive: Headache Psychological: Other - Work stress All Other Systems Reviewed And Are Negative: Yes Physical Exam - Summary Physical Exam Summary: Constitutional: Well-developed, Well-nourished, Alert. (-) Distressed Skin: Warm, Dry HENT: Dry mucous membranes Eyes: Conjunctiva normal, visual hargrove intact Neck: Musculoskeletal ROM normal neck. (-) JVD, (-) Stridor, (-) Tracheal deviation Cardio: Rhythm regular, rate normal, Heart sounds normal; normal S1, S2, no murmurs, no carotid bruits. Intact distal pulses; The pedal pulses are 2+ and symmetric. Radial pulses are 2+ and symmetric. Pulmonary/Chest wall: Effort normal. (-) Respiratory distress, (-) Wheezes, (-) Rales Abd: Soft, (-) tenderness, (-) Distension, (-) Guarding, (-) Rebound Musculoskeletal: (-) Edema. Decreased ROM of cervical spine, due to titanium plate placed by previous traumatic injury. Neuro: Alert, Oriented x3. Strength of upper and lower extremities intact. Normal coordination. Subjective decreased sensation in left lower extremity, which is chronic at baseline. GCS: 15 Psych: Mood and affect Normal Triage Information Reviewed: Yes Vital Signs On Initial Exam: Initial Vitals Temp Pulse Resp BP Pulse Ox 97.6 F 76 16 153/91 97 05/13/19 07:13 05/13/19 07:13 05/13/19 07:13 05/13/19 07:13 05/13/19 07:13 Vital Signs Reviewed: Yes Procedures - Sedation Patient Received Moderate/Deep Sedation with Procedure: No Diagnostics - Vital Signs Vital Signs Temp Pulse Resp BP Pulse Ox 05/13/19 07:15 65 97 05/13/19 07:13 97.6 F 71 16 153/91 97 - Laboratory Result Diagrams: 05/13/19 08:09 05/13/19 08:09 Lab Statement: Any lab studies that have been ordered have been reviewed, and results considered in the medical decision making process. - Radiology CXR Radiology Interpretation Completed By: Radiologist Summary of Radiographic Findings: NO ACTIVE CARDIOPULMONARY DISEASE. Dr. Gaspar has reviewed this radiology report. - CT Head/neck CT Interpretation Completed By: Radiologist Summary of CT Findings: 1. NO INTERNAL CAROTID ARTERY STENOSIS BY NASCET CRITERIA. 2. NO ANEURYSM, VASCULAR MALFORMATION, OCCLUSION, OR STENOSIS OF THE VISUALIZED INTRACRANIAL CIRCULATION. 3. FINDINGS SUGGESTIVE OF ANKYLOSIS SPONDYLITIS. 4. ENLARGEMENT OF THE PULMONARY ARTERY COMPARED TO THE AORTA SUGGESTIVE OF PULMONARY ARTERIAL HYPERTENSION. Dr. Gaspar has reviewed this radiology report. - EKG 08 Cardiac Rate: NL - 64 BPM EKG Rhythm: Sinus Rhythm ST Segment: Non-Specific Summary of EKG Findings: NSR at 64 BPM, no STEMI, non-specific ST aberrations in V2 only. Dr. Gaspar has reviewed and interpreted this EKG. Re-Evaluation - Re-Evaluation First Eval Re-Evaluation Time: 11:10 Comment: Discussed results with patient. Patient will be admitted to [facility] with dx of dizziness and syncope. Patient understands and agrees with this plan. Dizzy Course/Dx - Course Course Of Treatment: This patient is a 53 year old M with a history of seizures on 1500mg Keppra BID presenting to ED with a chief complaint of falling since 24 hours ago and recent dizziness. In the ED course, patient received lactated ringers, Reglan, and Benadryl. An EKG at 0821 revealed NSR at 64 BPM, no STEMI, non-specific ST aberrations in V2 only. CXR revealed: NO ACTIVE CARDIOPULMONARY DISEASE. Blood work revealed MCV 96, MCH 33, 7.1, direct bilirubin 0.20, TSH 7.36, total T3 81. Head/neck CT revealed: 1. NO INTERNAL CAROTID ARTERY STENOSIS BY NASCET CRITERIA. 2. NO ANEURYSM, VASCULAR MALFORMATION, OCCLUSION, OR STENOSIS OF THE VISUALIZED INTRACRANIAL CIRCULATION. 3. FINDINGS SUGGESTIVE OF ANKYLOSIS SPONDYLITIS. 4. ENLARGEMENT OF THE PULMONARY ARTERY COMPARED TO THE AORTA SUGGESTIVE OF PULMONARY ARTERIAL HYPERTENSION. I have recognized the TSH is high and T3 is low while T4 and thyroxine are normal. However, the patients HR is barely bradycardic and he is hypertensive, so I do not think the thyroid function is the immediate cause of dizziness and syncope. Therefore , I talked to the hospitalist, Dr. Jordan, who accepted the patient for admission to [facility] with dx of dizziness and syncope. Patient understands and agrees with this plan. - Diagnoses Provider Diagnoses: Syncope, Dizziness - Provider Notifications Discussed Care Of Patient With: Katrina Jordan Time Discussed With Above Provider: 11:49 Instructed by Provider To: Admit As Observation - Discussed patient case with Dr. Jordan, hospitalist, who accepted the patient for admission to [facility]. Discharge ED - Sign-Out/Discharge Documenting (check all that apply): Patient Departure - Admit - Discharge Plan Condition: Fair Disposition: ADMITTED TO [facility] - Billing Disposition and Condition Condition: FAIR Disposition: Admitted to [facility] - Attestation Statements Document Initiated by Felisaibe: Yes Documenting Scribe: Ermias Alcocer Provider For Whom Hemant is Documenting (Include Credential): Douglas Gaspar MD Scribe Attestation: I, Ermias Alcocer, scribed for Douglas Gaspar MD on 05/13/19 at 1905. Scribe Documentation Reviewed: Yes Provider Attestation: The documentation as recorded by the Ermias barclay accurately reflects the service I personally performed and the decisions made by me, Douglas Gaspar MD Status of Scribe Document: Viewed
[2019-05-13 08:37] LABS: INR 1.03 (0.82-1.09)
[2019-05-13 09:08] LABS: Troponin I 0.01 ng/mL (<0.03)
[2019-05-13 09:10] LABS: ALT 14 U/L (7-52); AST 24 U/L (13-39); Albumin 4.3 g/dL (3.2-5.2); Albumin/Globulin Ratio 1.8 (1-3); Alkaline Phosphatase 48 U/L (34-104); Anion Gap 6 mmol/L (2-11); BUN/Creatinine Ratio 7.1 (8-20); Blood Urea Nitrogen 7 mg/dL (6-24); CO2 Carbon Dioxide 29 mmol/L (22-32); Calcium 9.5 mg/dL (8.6-10.3); Chloride 105 mmol/L (101-111); EGFR African American 97.2 (>60); EGFR Non-African American 80.3 (>60); Globulin 2.4 g/dL (2-4); Glucose 93 mg/dL (70-100); Indirect Bilirubin 0.8 mg/dL (0.3-1.0); Potassium 3.9 mmol/L (3.5-5.0); Sodium 140 mmol/L (135-145); Total Protein 6.7 g/dL (6.4-8.9)
[2019-05-13] MEDS ORDERED: Metoclopramide IV* 5 MG/ML 2 ML VIAL IV SLOW PU ONE (09:10)
[2019-05-13] MEDS ORDERED: diPHENhydraMINE IV* 50 MG/ML 1 ml VIAL (BENADRYL) IV ONE (09:10)
[2019-05-13 09:16] LABS: TSH (Thyroid Stimulating Horm) 7.36 mcIU/mL (0.34-5.60)
[2019-05-13] MEDS ORDERED: Iodixanol* (CONTRAST) 320 MG/ML 100 ML SDV IV ONE (10:35)
[2019-05-13 10:58] LABS: T4, Total 6.91 mcg/dL (6.09-12.23)
[2019-05-13 11:04] LABS: Free T4 0.98 ng/dL (0.61-1.12)
[2019-05-13] MEDS ORDERED: Al Hydrox/Mg Hydrox/Simet LIQ* 30 ML UDC PO PRN (12:55)
[2019-05-13] MEDS ORDERED: Ondansetron INJ* 2 MG/ML VIAL IV PRN (12:55)
[2019-05-13] MEDS ORDERED: Senna TAB 8.6 mg* TAB PO PRN (12:55)
[2019-05-13] MEDS: Acetaminophen TAB* 325 MG PO PRN ×2 (14:32→20:30)
[2019-05-13] MEDS ORDERED: levETIRAcetam TAB* 500 MG PO ONE (14:42)
[2019-05-13] MEDS ORDERED: Acetaminophen TAB* 325 MG PO ONE (16:25)
--- NOTE | 2019-05-13 17:29 | HP ---
ADMISSION HISTORY AND PHYSICAL: DATE OF ADMISSION: 05/13/19 ATTENDING PHYSICIAN WHILE IN THE HOSPITAL: Dr. Katrina Jordan * (dictated by AISHA Layne). CHIEF COMPLAINT: Dizziness and syncope. HISTORY OF PRESENT ILLNESS: Mandeep Chapman is a 53-year-old black male with past medical history significant for epilepsy; ankylosing spondylitis; rheumatoid arthritis; LILIA; renal cell carcinoma, status post nephrectomy, who presented to the emergency department due to multiple episodes of syncope yesterday. For the last month, the patient has been having intermittent frontal headaches. He does admit that he has been sleeping less and having increased stress at work. Tylenol helps these headaches. He has been having ongoing left foot numbness that goes into the leg and he has been worked up for this outpatient and he had an EMG on 05/11/19, which had no obvious findings. More recently in the last 2 days, he has been having persistent dizziness which feels like a lightheadedness and denies sensation of room spinning. He tells me that this is persistent, no matter what position he is in. He tells me it is not brought on by positional changes. Yesterday evening, he was walking across the room and started to feel even more lightheaded and noticed himself fall to the ground. He is unsure if he had loss of consciousness, but he denies head trauma. There were no witnesses to this episode, and this did occur 2 additional times yesterday evening. He is unable to describe how he is feeling today, but does agree that it sounds like he feels somewhat mentally foggy. He does additionally note that he had several episodes of diarrhea 2 days ago as well as nausea, which have been resolved since then. He denies abdominal pain, vomiting, shortness of breath, chest pain, recent travel, visual changes. In the emergency department, when the patient arrived, his vital signs were temperature 97.6 degrees Fahrenheit, pulse rate 76, respiratory rate 16, oxygen saturation 97% on room air, blood pressure 153/91. He had a CTA head and neck without acute findings, and the hospitalists were asked to evaluate the patient for admission. PAST MEDICAL HISTORY: 1. Epilepsy with his last seizure over 1.5 years ago per the patient. 2. Ankylosing spondylitis. 3. Insomnia. 4. History of cervical spine fracture. 5. Renal cell carcinoma, status post nephrectomy, prior history of liver metastasis. 6. Rheumatoid arthritis in the C-spine. 7. LILIA, not using CPAP. 8. Osteoarthritis. PAST SURGICAL HISTORY: 1. Nephrectomy. 2. Cervical spinal fusion. HOME MEDICATIONS: 1. Belsomra 20 mg p.o. at bedtime. 2. Zanaflex 12 mg p.o. at bedtime. 3. Remeron 15 mg p.o. at bedtime. 4. Xanax 0.5 mg p.o. at bedtime. 5. Gabapentin 600 mg p.o. at bedtime. 6. Humira 40 mg subcu twice monthly. 7. Folic acid 1 mg p.o. daily. 8. Methotrexate 7.5 mg p.o. weekly. 9. Keppra 1500 mg p.o. b.i.d. 10. Naltrexone 4.5 mg p.o. daily (which he takes for anti-inflammatory purposes ). ALLERGIES: Unknown reaction to PENICILLINS, headache to LYRICA, nausea and vomiting to CONTRAST. FAMILY HISTORY: Both his parents are living. His father is overall healthy and his mother has hypertension. SOCIAL HISTORY: The patient notes that he lives in an apartment complex called [facility], which is for adults with disability. He is a . He denies smoking, alcohol use, or drug use. 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 Should the patient need a medical decision maker, he would like his sister Daniela Chapman to do so for him. Her phone number is [phone]. REVIEW OF SYSTEMS: An 11-point review of systems was completed and all pertinent positives and negatives are as noted above in the HPI. All other systems are negative. PHYSICAL EXAMINATION GENERAL: A well-developed, well-nourished, middle-aged black male, lying in hospital bed, appearing comfortable, in no acute distress, restricted affect. HEENT: Eyes: PERRL. Sclerae anicteric. No nystagmus. Peripheral hargrove are full to confrontation. ENT: Mucous membranes moist. NECK: Supple without JVD. LUNGS: Clear to auscultation throughout. CARDIO: Regular rate and rhythm without murmurs, rubs, or gallops appreciated. ABDOMEN: Normoactive bowel sounds x4 quadrants. The abdomen is soft, nontender , nondistended. EXTREMITIES: No clubbing, cyanosis, or edema. NEURO: The patient is alert and oriented x3. There is diminished sensation to light touch from the left mid valles down, which the patient tells me has been chronic. Able to move all extremities. Minimal weakness to dorsiflexion, but not plantarflexion of the left foot. SKIN: Warm, dry, and intact. DIAGNOSTIC STUDIES/LAB DATA: CTA of the head and neck: No internal carotid artery stenosis by NASCET criteria. No aneurysm, vascular malformation, occlusion, or stenosis of the visualized intracranial circulation. Findings are suggestive of ankylosing spondylitis. Enlargement of pulmonary artery compared to the aorta suggestive of pulmonary arterial hypertension. Upon further discussion with Dr. Jules, there was a CT of the brain without contrast performed along with the study and Dr. Jules notes no acute intracranial process, no mass effect, no hemorrhage. Chest x-ray: No acute cardiopulmonary process. EKG: Normal sinus rhythm, rate 64 beats per minute. No ST elevation or depression. No T-wave inversions. Overall similar to previous EKG. Labs: White blood cell count 5.6, hemoglobin 16, hematocrit 46, platelet count 190. INR 1.03. Sodium 140, potassium 3.9, chloride 105, carbon dioxide 29, anion gap 6, BUN 7, creatinine 0.98, glucose 93, calcium 9.5, magnesium 2. Bilirubin 1, direct bilirubin 0.2, AST 24, ALT 14, alk phos 48. TSH 7.36, free T4 0.98, thyroxine 6.91, total T3 81. ASSESSMENT AND PLAN: Mandeep Chapman is a 53-year-old black male with past medical history significant for ankylosing spondylitis; epilepsy; insomnia; obstructive sleep apnea, noncompliant with CPAP; rheumatoid arthritis; and renal cell carcinoma, status post nephrectomy, who presents to the emergency department due to multiple syncopal episodes. The patient will be admitted OBV for: 1. Syncope and dizziness. I am concerned about this patient's persistent dizziness. I am going to order p.r.n. meclizine to see if this is of any benefit. However, it does not sound like it is positional. I have ordered orthostatic vitals and they are still pending. He had a CTA of his head and neck as well as a CT brain without acute findings. I do have a suspicion of stroke due to the persistent dizziness; however, I do not think the left lower extremity numbness is related to that, it has been ongoing for years and only recently changing somewhat in the past several months prompting an EMG nerve conduction study. I will order an echo and the patient will be monitored on telemetry and we will continue to monitor for symptoms. He is minimally hypertensive consistently in the emergency department with diastolic in the 90s and systolic blood pressure in the 150s. I am wondering if this may be related especially considering his headache that he has been having, but we will continue to monitor this and perhaps this will improve if we start an antihypertensive medication, but I will hold off for now and continue to monitor his blood pressure while he is on the floor. 2. Epilepsy. Continue the patient's home Keppra. 3. Rheumatoid arthritis. I will hold the patient's methotrexate as he only gets it weekly. Continue his home naltrexone. I do question if this is contributing to his headache; however, he has been taking it for several months and his headaches have only been ongoing for a month. No need to administer Humira during the hospital stay. 4. Insomnia. Continue the patient's home gabapentin, Xanax, Remeron, Zanaflex , and Belsomra. 5. Elevated TSH. The patient has an elevated TSH; however, his free T4 is normal. Total T3 is not significant in this scenario. This represents a subclinical hypothyroidism and no indication is indicated at this time. 6. FEN: The patient may have a regular unrestricted diet. No fluids indicated at this time. Electrolytes within normal limits. 7. Code status: The patient is a full code. 8. DVT prophylaxis: The patient has DVT risk score of 1 and I have ordered SCDs. TIME SPENT: Approximately 45 minutes was spent on this admission, approximately half this time was spent at bedside evaluating the patient and discussing the plan of care. I have reviewed this case with my attending Dr. Katrina Jordan, and she agrees with this plan of care. AISHA LAYNE [id number]/[facility] #: [id number] [facility] PSYCHIATRIC CENTERKatey
--- NOTE | 2019-05-13 17:49 | ECHO ---
[place] [address] Fax #: [phone] Transthoracic Echocardiogram Patient: Mandeep Chapman : 1965 Study Date: 05/13/2019 Age: 53 Gender: M HR: 74 bpm Height: 70 in /177.8 cm BSA: 2.08 m^2 Weight: 197.6 lb /89.8 kg BMI: 28.4 kg/m^2 *Combination Building Inspector: Stefania Dinh *Referring Physician: * O'Reshma Wolfe *Reading Physician: * Reuben Levin MD Indications: Syncope. History: Ankylosing spondylitis, Cancer with liver mets. Conclusions Summary: - Left ventricle: The cavity size is normal. Wall thickness is mildly increased. Systolic function is normal. The estimated ejection fraction is 55-60%. Wall motion is normal; there are no regional wall motion abnormalities. - Right ventricle: The cavity size is normal. Systolic function is normal. - Left atrium: The atrium is normal in size. - Pericardium, extracardiac: There is no significant pericardial effusion. - No significant valvular abnormalities noted. Recommendations: None prior for comparison at time of interpretation Study data: Transthoracic echocardiogram. Procedure: Transthoracic echocardiography was performed. Image quality was fair. Complete 2D, spectral Doppler, and color flow Doppler. Location: Bedside. Patient status: Inpatient. Patient room number: 448. Findings Left ventricle: The cavity size is normal. Wall thickness is mildly increased. Systolic function is normal. The estimated ejection fraction is 55-60%. Wall motion is normal; there are no regional wall motion abnormalities. Left ventricular diastolic function parameters are normal. Right ventricle: The cavity size is normal. Systolic function is normal. Systolic pressure is within the normal range. Left atrium: The atrium is normal in size. Right atrium: The atrium is normal in size. Mitral valve: The leaflets are normal thickness. There is no evidence of stenosis. There is trace regurgitation. Aortic valve: The valve is trileaflet. The leaflets are normal thickness. There is no evidence of stenosis. There is no significant regurgitation. Tricuspid valve: The leaflets are normal thickness. There is trace regurgitation. Pulmonic valve: The leaflets are normal thickness. There is no evidence of stenosis. There is trace regurgitation. Aorta: The aortic arch appears normal. Pericardium: There is no significant pericardial effusion. Systemic veins: Inferior vena cava: The vessel is normal in size. Measurements Left ventricle Value Ref Aortic valve Value Ref LORETO, LAX 4.8 cm 4.2 - Peak v, S 1.08 m/sec ----- 5.8 VTI, S 23.6 cm ----- ESD, LAX 2.9 cm 2.5 - Mean grad, S 3.0 mm Hg ----- 4.0 Peak grad, S 5.0 mm Hg ----- FS, LAX 39 % 25 - 43 DARSHANA, VTI 1.49 cm^2 ----- PW, ED, LAX (H) 1.4 cm 0.6 - DARSHANA, Vmax 1.58 cm^2 ----- 1.0 E', lat lisa, TDI (L) 6.0 cm/sec >=10.0 Mitral valve Value Ref E/e', lat lisa, TDI 12 -------- Peak E 0.72 m/sec -- --- E', med lisa, TDI 9.1 cm/sec >=7.0 Peak A 0.71 m/sec ----- E/e', med lisa, TDI 8 -------- Decel time 313 ms -- --- E', avg, TDI 7.6 cm/sec -------- Peak grad, D 2.1 mm Hg -- --- E/e', avg, TDI 10 <=14 Peak E/A ratio 1 ----- LVOT Value Ref Pulmonic valve Value Ref Diam, S 1.60 cm -------- Peak v, S 0.65 m/sec ----- Area 2.0 cm^2 -------- Peak grad, S 2.0 mm Hg ----- Peak jonny, S 0.85 m/sec -------- Mean grad, S 2 mm Hg -------- Tricuspid valve Value Ref SV 35 ml -------- TR peak v 1.75 m/sec <=2. 8 Peak RV-RA grad, S 12 mm Hg ----- Ventricular septum Value Ref Max TR jonny 1.75 m/sec ----- IVS, ED (H) 1.6 cm 0.6 - 1.0 Aortic root Value Ref Root diam 3.3 cm <4.2 Right ventricle Value Ref LORETO, LAX 2.8 cm -------- Ascending aorta Value Ref LORETO minor ax, A4C 2.8 cm 1.9 - AAo AP diam, S 3.2 cm ----- mid 3.5 AAo AP diam/bsa, S 1.5 cm/m^2 ----- Left atrium Value Ref Aortic arch Value Ref ML dim, A4C 4.0 cm -------- Arch diam 2.3 cm ----- SI dim, A4C 4.8 cm -------- Vol/bsa, ES, 1-p 19 ml/m^2 12 - 37 Decending aorta Value Ref A4C Nieves peak jonny 0.77 m/sec ----- Vol/bsa, ES, A/L 22 ml/m^2 16 - 34 Inferior vena cava Value Ref Right atrium Value Ref Diam 2.0 cm ----- SI dim, ES 3.7 cm 3.4 - 5.3 ML dim, ES, A4C 4.1 cm 2.6 - 4.4 SI dim, ES, A4C 3.7 cm 3.4 - 5.3 SI dim/bsa, ES, 1.8 cm/m^2 1.8 - A4C 3.0 Legend: (L) and (H) wojciech values outside specified reference range. Prepared and electronically signed by Reuben Levin MD 05/13/2019 17:48
[2019-05-13] MEDS: levETIRAcetam TAB* 500 MG PO SCH (20:31)
[2019-05-13 20:50] LABS: Urine Appearance Clear; Urine Bilirubin Negative (Negative); Urine Blood Negative (Negative); Urine Color Yellow; Urine Glucose Negative (Negative); Urine Ketones Negative (Negative); Urine Nitrite Negative (Negative); Urine Protein Negative (Negative); Urine Specific Gravity 1.027 (1.010-1.030); Urine Urobilinogen Negative (Negative)
[2019-05-13] MEDS ORDERED: ALPRAZolam TAB* 0.5 MG PO SCH (21:00)
[2019-05-13] MEDS: Gabapentin CAP(*) 300 MG PO SCH (22:06)
[2019-05-13] MEDS: tiZANidine TAB* 2 MG PO SCH (22:09)
[2019-05-13] MEDS: Suvorexant (NF) 20 MG TAB PO SCH (22:15)
[2019-05-13] MEDS: Mirtazapine TAB* 15 MG PO SCH (22:44)
[2019-05-14] MEDS: Acetaminophen TAB* 325 MG PO PRN ×3 (03:23→14:57)
[2019-05-14 05:43] LABS: ABS Eosinophils 0.1 10^3/ul (0-0.6); ABS Lymphocytes 2.6 10^3/ul (1.0-4.8); ABS Monocytes 0.3 10^3/ul (0-0.8); ABS Neutrophils 2.3 10^3/ul (1.5-7.7); Eosinophil % 1.2 %; Hematocrit 43 % (42-52); Hemoglobin 14.8 g/dL (14.0-18.0); Lymphocyte % 49.6 %; Mean Corpuscular HGB Conc 34 g/dL (31-36); Mean Corpuscular Hemoglobin 33 pg (27-31); Mean Corpuscular Volume 97 fL (80-94); Nucleated Red Blood Cells % 0.1; Platelet Count 164 10^3/uL (150-450); Red Blood Count 4.45 10^6 /uL (4.18-5.48); Red Cell Distribution Width 14 % (10-15); White Blood Count 5.3 10^3/uL (3.5-10.8)
[2019-05-14 06:05] LABS: BUN/Creatinine Ratio 7.6 (8-20); Calcium 8.9 mg/dL (8.6-10.3); EGFR African American 104.5 (>60); EGFR Non-African American 86.4 (>60); Potassium 3.4 mmol/L (3.5-5.0)
[2019-05-14] MEDS: levETIRAcetam TAB* 500 MG PO SCH ×2 (08:18→20:45)
[2019-05-14] MEDS: Folic Acid TAB* 1 MG PO SCH (08:18)
[2019-05-14] MEDS: NALTREXONE 4.5 MG PO SCH (08:22)
[2019-05-14] MEDS ORDERED: Potassium Chlor TAB* 20 MEQ TAB.ER PO ONE (09:54)
[2019-05-14] MEDS: Meclizine TAB* 12.5 MG PO PRN (10:12)
[2019-05-14] MEDS ORDERED: Ketorolac INJ* 30 MG/ML 1 ML VIAL IV PUSH ONE (16:19)
[2019-05-14] MEDS ORDERED: LORazepam INJ* 2 MG/ML 1 ML VIAL IV PUSH ONE (16:24)
[2019-05-14] MEDS ORDERED: Lorazepam PYXIS KEY PRN (16:24)
[2019-05-14] MEDS ORDERED: Acetaminophen TAB* 325 MG PO ONE ×2 (16:25→17:00)
[2019-05-14 17:14] LABS: Folate > 20.00 ng/mL (>3.99)
--- NOTE | 2019-05-14 18:25 | PN ---
Subjective Date of Service: 05/14/19 Interval History: Patient has persistent headache which is only minimally improved with tylenol. He says his dizziness feels like lightheadedness and denies sensation of room spinning. He says the dizziness feels the same when he is laying down as when he is walking. He has difficulty describing how he feels but ultimately feels mentally slow and foggy. He denies scotoma, blurred vision, floaters. He feels his gait is same as normal but feels unsafe when walking due to dizziness. Denies difficulty breathing, chest pain. Objective Active Medications: Al Hydrox/Mg Hydrox/Simethicone (Maalox Plus*) 30 ml PO Q6H PRN PRN Reason: INDIGESTION Alprazolam (Xanax Tab*) 5 mg PO BEDTIME [facility] Last Admin: 05/13/19 22:08 Dose: 5 mg Folic Acid (Folvite Tab*) 1 mg PO DAILY [facility] Last Admin: 05/14/19 08:18 Dose: 1 mg Gabapentin (Neurontin Cap(*)) 600 mg PO BEDTIME [facility] Last Admin: 05/13/19 22:06 Dose: 600 mg Levetiracetam (Keppra Tab*) 1,500 mg PO BID [facility] Last Admin: 05/14/19 08:18 Dose: 1,500 mg Meclizine HCl (Antivert Tab*) 12.5 mg PO Q8HR PRN PRN Reason: DIZZINESS Last Admin: 05/14/19 10:12 Dose: 12.5 mg Mirtazapine (Remeron Tab*) 15 mg PO BEDTIME [facility] Last Admin: 05/13/19 22:44 Dose: 15 mg Miscellaneous (Ativan Pyxis Bennett) 1 ea N/A .ATIVAN IV BENNETT PRN PRN Reason: PYXIS BENNETT Pto Med *Naltrexone (4.5mg Capsule* (Nf)) 1 dose PO DAILY [facility]; Protocol Last Admin: 05/14/19 08:22 Dose: 1 dose Ondansetron HCl (Zofran Inj*) 4 mg IV Q4H PRN PRN Reason: NAUSEA/VOMITING Senna (Senokot 8.6 Mg Tab*) 1 tab PO BID PRN PRN Reason: CONSTIPATION Suvorexant (Belsomra (Nf)) 20 mg PO BEDTIME [facility] Last Admin: 05/13/19 22:15 Dose: Not Given Tizanidine HCl (Zanaflex Tab*) 12 mg PO BEDTIME [facility] Last Admin: 05/13/19 22:09 Dose: 12 mg Vital Signs - 8 hr 05/14/19 05/14/19 13:00 15:15 Temperature 99.3 F 97.7 F Pulse Rate 66 74 Respiratory 20 20 Rate Blood Pressure 142/88 143/88 (mmHg) O2 Sat by Pulse 97 100 Oximetry Oxygen Devices in Use Now: None Appearance: middle aged black male, WDWN, laying in hospital bed, appearing in NAD, restricted affect Eyes: No Scleral Icterus, - - PERRL Ears/Nose/Mouth/Throat: Mucous Membranes Moist Neck: Trachea Midline Respiratory: Symmetrical Chest Expansion and Respiratory Effort, Clear to Auscultation Cardiovascular: NL Sounds; No Murmurs; No JVD, RRR Abdominal: - - abd soft, nontender, nondistended Extremities: No Edema, No Clubbing, Cyanosis Skin: No Rash or Ulcers Neurological: Alert and Oriented x 3, - - minimal decreased dorisflexion on left side which is chronic, sensation to light touch diminished LLE from midshin to foot which is chronic Result Diagrams: 05/14/19 04:57 05/14/19 04:57 Assess/Plan/Problems-Billing Assessment: 53 yo black male with PMHx ankylosing spondylitis, LILIA, renal cell CA s/p nephrectomy, epilepsy, rheumatoid arthritis presents with headache, dizziness, and 3 episodes of syncope. - Patient Problems (1) Dizziness Current Visit: Yes Status: Acute Code(s): R42 - DIZZINESS AND GIDDINESS SNOMED Code(s): 419192125 Comment: -presented with dizziness and episodes of syncope -echo without valvular abnormalities and EF is 55-60% -not orthostatic -the patient describes this dizziness as a sensation of lightheadedness and denies sensation of room spinning, and additional denies any visual changes. However, I have concern given his explanation of total persistent dizziness that is not associated with positional changes or neck movement (as patient does not move neck due to chronic neck pain), plus his explanation of having difficulty reading -ordering MRI brain to r/o CVA; premedicating with tylenol, toradol, and ativan as patient is very concerned about neck pain lying supine without pillow. He has no focal sxs otherwise -likely not BPPV but am unable to perform [place] [facility] d/t patient unable/ unwilling to move neck; likely not vestibular neuritis as he has no URI sxs -meclizine did not improve the dizziness or his headache so vestibular migraine seems unlikely -advised patient to check BP at home and sent BP cuff to pharmacy (2) Headache Current Visit: Yes Status: Acute Code(s): R51 - HEADACHE SNOMED Code(s): 14505028 Comment: -only minimal relief from tylenol -further concerns below regarding sleep apnea (3) Epilepsy Current Visit: Yes Status: Acute Code(s): G40.909 - EPILEPSY, UNSP, NOT INTRACTABLE, WITHOUT STATUS EPILEPTICUS SNOMED Code(s): 62251407 Comment: -continue home keppra (4) Sleep apnea Current Visit: No Status: Acute Code(s): G47.30 - SLEEP APNEA, UNSPECIFIED SNOMED Code(s): 59553703 Comment: -patient does not believe he's been prescribed CPAP in the past -sleep study in 2017 found in outpatient EMR and demostrates severe REM sleep apnea and recommends sleeping in lateral position -given the CTA head demonstrating likely pulmonary hypertension and the fact that the patient has frequent headaches starting in the morning, he would likely benefit from f/u with sleep medicine -he takes 5 medications for insomnia (5) Subclinical hypothyroidism Current Visit: Yes Status: Acute Code(s): E03.9 - HYPOTHYROIDISM, UNSPECIFIED SNOMED Code(s): 71992217 Comment: -incidental finding, no intervention needed (6) Ankylosing spondylitis Current Visit: No Status: Chronic Code(s): M45.9 - ANKYLOSING SPONDYLITIS OF UNSPECIFIED SITES IN SPINE SNOMED Code(s): 1878042 Comment: -continue low dose naltrexone (7) Hx of renal cell carcinoma Current Visit: No Status: Chronic Code(s): Z85.528 - PERSONAL HISTORY OF OTHER MALIGNANT NEOPLASM OF KIDNEY SNOMED Code(s): 757974117 Comment: -s/p nephrectomy without evidence of CKD (8) Rheumatoid arthritis Current Visit: Yes Status: Acute Code(s): M06.9 - RHEUMATOID ARTHRITIS, UNSPECIFIED SNOMED Code(s): 21674035 Comment: -holding home humira and methotrexate, can likely be resumed at discharge (9) DVT prophylaxis Current Visit: No Status: Acute Priority: Medium Onset Date: 10/07/14 Code(s): CUI4215 - SNOMED Code(s): 133254767 Comment: -SCDs (10) Full code status Current Visit: No Status: Acute Priority: Medium Onset Date: 10/07/14 Code(s): Z78.9 - OTHER SPECIFIED HEALTH STATUS SNOMED Code(s): 598847936
[2019-05-14] MEDS ORDERED: ALPRAZOLAM 1 MG PO SCH (21:00)
[2019-05-14] MEDS: Gabapentin CAP(*) 300 MG PO SCH (21:46)
[2019-05-14] MEDS: tiZANidine TAB* 2 MG PO SCH (21:47)
[2019-05-14] MEDS: Mirtazapine TAB* 15 MG PO SCH (23:01)
[2019-05-14] MEDS: Suvorexant (NF) 20 MG TAB PO SCH (23:01)
[2019-05-15] MEDS: NALTREXONE 4.5 MG PO SCH (09:11)
[2019-05-15] MEDS: Folic Acid TAB* 1 MG PO SCH (09:12)
[2019-05-15] MEDS: levETIRAcetam TAB* 500 MG PO SCH (09:12)
[2019-05-15] MEDS ORDERED: Acetaminophen TAB* 325 MG PO PRN (09:22)
[2019-05-15] MEDS: Meclizine TAB* 12.5 MG PO PRN (10:53)
--- NOTE | 2019-05-15 11:35 | PN ---
Subjective Date of Service: 05/15/19 Interval History: Mr. Chapman reports that he is not 100% but that he is feeling better. He did have some lightheadedness this morning but this has since resolved. He now questions whether his symptoms could be due to pushing himself too much recently and not taking care of himself adequately. He denies chest pain, SOB, nausea, or abdominal pain. Objective Active Medications: Acetaminophen (Tylenol Tab*) 650 mg PO Q6H PRN Al Hydrox/Mg Hydrox/Simethicone (Maalox Plus*) 30 ml PO Q6H PRN Alprazolam (Alprazolam (Nf) 1 Mg Tab) 5 mg PO BEDTIME [facility] Folic Acid (Folvite Tab*) 1 mg PO DAILY [facility] Gabapentin (Neurontin Cap(*)) 600 mg PO BEDTIME [facility] Levetiracetam (Keppra Tab*) 1,500 mg PO BID [facility] Meclizine HCl (Antivert Tab*) 12.5 mg PO Q8HR PRN Mirtazapine (Remeron Tab*) 15 mg PO BEDTIME [facility] Miscellaneous (Ativan Pyxis Bennett) 1 ea N/A .ATIVAN IV BENNETT PRN Pto Med *Naltrexone (4.5mg Capsule* (Nf)) 1 dose PO DAILY [facility]; Protocol Ondansetron HCl (Zofran Inj*) 4 mg IV Q4H PRN Senna (Senokot 8.6 Mg Tab*) 1 tab PO BID PRN Suvorexant (Belsomra (Nf)) 20 mg PO BEDTIME [facility] Tizanidine HCl (Zanaflex Tab*) 12 mg PO BEDTIME [facility] Vital Signs: Temp Pulse Resp BP Pulse Ox 97.5 F 64 20 124/92 99 05/15/19 07:28 05/15/19 07:28 05/15/19 07:28 05/15/19 07:28 05/15/19 07:28 Oxygen Devices in Use Now: None Appearance: Male lying in bed in NAD Eyes: No Scleral Icterus Ears/Nose/Mouth/Throat: Mucous Membranes Moist Neck: Trachea Midline Respiratory: Symmetrical Chest Expansion and Respiratory Effort, Clear to Auscultation Cardiovascular: NL Sounds; No Murmurs; No JVD, No Edema Abdominal: NL Sounds; No Tenderness; No Distention Extremities: No Edema Skin: No Rash or Ulcers Neurological: Alert and Oriented x 3 Result Diagrams: 05/14/19 04:57 05/14/19 04:57 Assess/Plan/Problems-Billing Assessment: Mr. Chapman is a 53 yo male with PMHx ankylosing spondylitis, LILIA, renal cell CA s/p nephrectomy, epilepsy, rheumatoid arthritis admitted on 05/13/19 with headache, dizziness, and 3 episodes of syncope. - Patient Problems (1) Syncope Comment: - None since admission, events outpatient unclear, associated with lightheadedness, not certain if there was loss of consciousness - CT brain negative, no events on telemetry, labs normal, not orthostatic - Patient recommended to follow up outpatient with PCP for consideration of loop recorder (2) Dizziness Comment: - Resolved. - MRI brain negative. Echo without valvular abnormalities and EF is 55-60%. Not orthostatic. - ? BPPV but unable to perform [facility] [place] d/t patient as patient has no ROM in neck; likely not vestibular neuritis as he has no URI sxs - Meclizine did not improve the dizziness or his headache so vestibular migraine seems unlikely (3) Headache Comment: - Resolved - further concerns below regarding sleep apnea (4) Sleep apnea Comment: -patient does not believe he's been prescribed CPAP in the past -sleep study in 2017 found in outpatient EMR and demostrates severe REM sleep apnea and recommends sleeping in lateral position -given the CTA head demonstrating likely pulmonary hypertension and the fact that the patient has frequent headaches starting in the morning, he would likely benefit from f/u with sleep medicine -he takes 5 medications for insomnia (5) Insomnia due to medical condition Comment: - Continue alprazolam, gabapentin, mirtazapine, tizanidine, and belsomra. (6) Epilepsy Comment: -continue home keppra (7) Rheumatoid arthritis Comment: -holding home humira and methotrexate, can likely be resumed at discharge (8) Subclinical hypothyroidism Comment: -incidental finding, no intervention needed (9) Ankylosing spondylitis Comment: -continue low dose naltrexone (10) Hx of renal cell carcinoma Comment: - noted, s/p nephrectomy without evidence of CKD (11) DVT prophylaxis Comment: -SCDs (12) Full code status Comment: Status and Disposition: OBV. Discharge to home.
[2019-05-15 12:56] VITALS: BP 132/85
--- NOTE | 2019-05-15 16:40 | DS ---
CC: Dr. Jimenes * [facility] MEDICINE DISCHARGE SUMMARY: DATE OF ADMISSION: 05/13/19 DATE OF DISCHARGE: 05/15/19 PRIMARY CARE PHYSICIAN: Dr. Jimenes. ATTENDING PHYSICIAN: Dr. Michael Valdez * (dictation provided by Silvia Tang NP). PRIMARY DIAGNOSIS: Lightheadedness with questionable syncope. SECONDARY DIAGNOSES: 1. Insomnia. 2. Epilepsy. 3. Ankylosing spondylitis. 4. History of cervical spine fracture. 5. Renal cell carcinoma status post nephrectomy. 6. Prior history of a liver metastasis. 7. Rheumatoid arthritis in the C-spine. 8. Obstructive sleep apnea, not using CPAP. 9. Osteoarthritis. PAST SURGICAL HISTORY: 1. Nephrectomy. 2. Cervical spine fusion. MEDICATIONS: Medications as outpatient are: 1. Belsomra 20 mg p.o. at bedtime. 2. Tizanidine 12 mg p.o. at bedtime. 3. Mirtazapine 15 mg p.o. at bedtime. 4. Alprazolam 5 mg p.o. at bedtime. 5. Gabapentin 600 mg p.o. at bedtime. 6. Humira 40 mg subcutaneously twice monthly. 7. Folic acid 1 mg p.o. daily. 8. Methotrexate 7.5 mg p.o. weekly. 9. Levetiracetam 1500 mg p.o. b.i.d. 10. Naltrexone 4.5 mg p.o. daily. HOSPITAL COURSE: Mr. Chapman is a 53-year-old male with a past medical history as outlined above who presented to the emergency room on 05/13/19 with concern for what was initially described as dizziness and syncope. Please see dictated H and P from AISHA Layne for complete details. In brief, the patient states that for the past month, he had been having intermittent frontal headaches. He noted that he had been sleeping less and was under increased stress at work. He did have some left foot numbness, that was being worked up outpatient with no clear identified cause and workup included an EMG on . In the 2 days prior to admission, he developed what was described as dizziness though he denied room spinning and appears to actually be more reflective of lightheadedness. He noted that he had 2 to 3 episodes where he found himself on the ground. He is not clear whether or not he lost consciousness. In the emergency room, the patient had a workup, which showed labs that were unremarkable except for his TSH of 7.36, but his free T4 was normal. No sign of infection and the urine was negative. The chest x-ray showed no active cardiopulmonary disease. He had a head CTA, which showed "no internal carotid artery stenosis by NASCET criteria, no aneurysm, vascular malformation, occlusion or stenosis of the visualized intracranial circulation and findings suggestive of ankylosing spondylitis and a large amount of pulmonary artery compared to the aorta suggestive of pulmonary arterial hypertension." His vitals were stable. He was checked for orthostatic hypotension and that was negative. The patient was admitted to the hospital. He had a transthoracic echocardiogram on 05/13/19, which showed the following: The left ventricular cavity size is normal. Ejection fraction is 55% to 60%. Wall motion is normal. No regional wall motion abnormalities. No significant valvular abnormalities. The patient had a cervical spine x-ray that showed that the anterior cortical plate and vertebral body screw span from C6 through T1 and it was negative for component fracture evidence for loosening. The patient had persistent headache and concern for lightheadedness. Again, he denied dizziness per se as he said there was no evidence of room spinning or sensation of being on a boat, etc. The MRI brain showed no acute intracranial abnormality. Mr. Chapman is doing better today. He has had an intermittent headache, but has no headache now. He has no lightheadedness now. He is up and ambulating in his room independently. He again suspects that based on this negative workup that perhaps he has been pushing himself too hard at work and has been under increased stress with decreased sleeping, all of which perhaps precipitated his symptoms prior to admission. Regardless, he is feeling better now and his workup has been negative including an echocardiogram, telemetry monitoring, brain MRI, orthostatic vitals and laboratory analysis. Our plans are for him to follow up with his provider outpatient. Mr. Chapman is medically stable for discharge to home. DISPOSITION: To home. DIET: Regular. ACTIVITY: As tolerated. FOLLOWUP PLANS: 1. Please follow up with Dr. Sher regarding this hospitalization. The patient is asked to call for an appointment on Friday. 2. Please follow up with sleep study team at [facility] regarding whether or not he should be on CPAP as he is not using this at home and has significant insomnia and noted pulmonary hypertension. TIME SPENT: Approximately 60 minutes was spent on the discharge of this patient , more than half the time was spent with the patient at the bedside reviewing the events leading up to this hospitalization, performing the physical examination, and reviewing my plan of care. SILVIA TANG NP [id number]/CPS #: [id number] KALE
== END 2019-05-15 14:50 | disposition home or self-care (01) ==
LOC: ED 07:01 → MEDTELE 12:55
PROVIDERS: ADMIT Hospitalist; ATTEND Internal Medicine
DX: R55 Syncope and collapse (principal); R42 Dizziness and giddiness; G47.00 Insomnia, unspecified; G40.909 Epilepsy, unspecified, not intractable, without status epilepticus; M45.9 Ankylosing spondylitis of unspecified sites in spine; Z87.81 Personal history of (healed) traumatic fracture; Z85.528 Personal history of other malignant neoplasm of kidney; Z90.5 Acquired absence of kidney; Z85.05 Personal history of malignant neoplasm of liver; M06.9 Rheumatoid arthritis, unspecified; G47.33 Obstructive sleep apnea (adult) (pediatric); M19.90 Unspecified osteoarthritis, unspecified site; Z79.899 Other long term (current) drug therapy; R51 Headache; E03.9 Hypothyroidism, unspecified
CPT/HCPCS: 36415; 70496; 70498; 70551; 71046; 72040; 80048; 80076; 81003; 82607; 82746; 83690; 83735; 83880; 84436; 84439; 84443; 84479; 84484; 85025; 85610; 93005; 93306; 96361; 96374; 96375; 99285; A9270-GY; G0378; J1200; J1885; J2060; J2765; Q9967

== ENCOUNTER 2019-05-20 19:22 | Emergency (ER) | payer MEDICAID ==
[2019-05-20] MEDS ORDERED: NS 0.9% 1000 ML** 1,000 ML IV ONE (19:48)
--- NOTE | 2019-05-20 20:09 | ED ---
Headache - HPI Summary HPI Summary: This pt is a 53 Y/O M presenting to [facility] with a CC of a headache that started at 1530 and has increased in severity to an 01/16. He states that he had a seizure on the bust today at 1848 and states that he is unsure if he hit his head. He states that he has not had a seizure in 2 years and is currently alert and oriented upon arrival. He denies any tongue biting, fevers, chills, N/V, and SOB. He states that he had similar symptoms with a head last week and was admitted for a further workup which found no neurological abnormalities. He states that he has a PMHx of seizures but states that the headaches combined with the seizure have never been present before. He states no aggravating or alleviating factors. - History Of Current Complaint Chief Complaint: EDSeizure Stated Complaint: SEIZUER PER EMS Time Seen by Provider: 05/20/19 19:44 Hx Obtained From: Patient Last Known Well Date: 05/20/19 prior to 1500 Onset/Duration: Sudden Onset, Still Present, Worse Since - onset Initially Headache Was: Initial Pain Scale(0-10)= - 1/10 Currently Pain Is: Current Pain Scale(0-10)= - 8/10 Timing: Constant Aggravating Factor: Nothing Allevating Factors: Nothing Associated Signs And Symptoms: Negative - tongue biting, fevers, chills, N/V, and SOB., Seizure - states episode on bus Related History: Similar Episode/DX As: - 05/13/19, states that he had only a headache without a Sz. - Allergies/Home Medications Allergies/Adverse Reactions: Allergies Allergy/AdvReac Type Severity Reaction Status Date / Time Penicillins Allergy Unknown Verified 05/20/19 19:32 Reaction Details pregabalin [From Lyrica] Allergy Headache Verified 05/20/19 19:32 Iodinated Contrast Media AdvReac Nausea And Verified 05/20/19 19:32 Vomiting PMH/Surg Hx/FS Hx/Imm Hx Previously Healthy: Yes Endocrine/Hematology History: Denies: Hx Anticoagulant Therapy, Hx Bone Marrow Disease, Hx Diabetes, Hx Sickle Cell Disease, Hx Thyroid Disease, Hx Anemia, Hx Unexplained Bleeding Cardiovascular History: Denies: Hx Hypertension, Hx Pacemaker/ICD Respiratory History: Denies: Hx Asthma, Hx Chronic Obstructive Pulmonary Disease (COPD), Hx Pulmonary Embolism, Hx Sleep Apnea GI History: Reports: Other GI Disorders - 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, SURGERY 03/2010, [facility] Denies: Hx Jaundice, Hx Ulcer History: Reports: Other Problems/Disorders - S/P RIGHT NEPHRECTOMY 06/09/05 - LEFT KIDNEY FUNCTIONS WELL Denies: Hx Renal Disease Musculoskeletal History: Reports: Hx Arthritis, Hx Back Problems, Hx Orthopedic Injury - 2009 C7 neck fx, Other Musculoskeletal History - ankylosing spondylitis , DRAINED FLUID IN LEFT KNEE IN 09/2014 AT [facility] Denies: Hx Bursitis, Hx Tendonitis Sensory History: Reports: Hx Contacts or Glasses, Hx Vision Problem Denies: Hx Hearing Aid Opthamlomology History: Reports: Hx Contacts or Glasses, Hx Vision Problem Neurological History: Reports: Hx Seizures - SINCE October- UNDER CONTROL WITH MEDICATION, 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 C2-C7 fusion done, Other Neuro Impairments/Disorders - SPINAL TRAUMA- BROKE NECK 4 YEARS C2- C7, COMPLEX FRACTURE OF C7 05/2010 Denies: Hx Headaches, Hx Migraine, Hx Nerve Disease, Hx Transient Ischemic Attacks (TIA) Psychiatric History: Denies: Hx Anxiety, Hx Depression, Hx Panic Disorder, Hx Substance Abuse - Cancer History Cancer Type, Location and Year: 2005- [facility] nephrectomy for renal cell CA , 2007-[facility] benign pulmonary nodule, 2008 -[facility] (right) cervical median branch block, 2009- [facility] metastatic liver tumor. w/ radioablation Hx Chemotherapy: No Hx Radiation Therapy: No - Surgical History Surgical History: Yes Surgery Procedure, Year, and Place: C7-FX WITH TITANIUM PLATE. 2005- [facility] nephrectomy for renal cell CA, 2007-[facility] benign pulmonary nodule, 2009 -[facility] (right) cervical median branch block, 2009- [facility] metastatic liver tumor. w/radioablation Hx Anesthesia Reactions: No - Immunization History Date of Tetanus Vaccine: unk Immunizations Up to Date: Yes Infectious Disease History: No Infectious Disease History: Denies: Hx Hepatitis, Hx Human Immunodeficiency Virus (HIV), Traveled Outside the [place] in Last 30 Days - Family History Known Family History: Positive: Hypertension, Renal Disease - Renal transplant ( father) - Social History Occupation: Employed Full-time Lives: Alone Alcohol Use: None Hx Substance Use: No Substance Use Type: Reports: None Hx Tobacco Use: No Smoking Status (MU): Never Smoked Tobacco Have You Smoked in the Last Year: No Review of Systems - ROS Summary Review of Systems Summary: Home Medications Medication Instructions Recorded Confirmed Type levETIRAcetam TAB* [Keppra TAB*] 1,500 mg PO BID 01/29/16 05/20/19 History ALPRAZolam TAB* [Xanax TAB*] 5 mg PO BEDTIME 03/18/17 05/20/19 History Gabapentin CAP(*) [Neurontin 100 600 mg PO BEDTIME 03/18/17 05/20/19 History mg CAP(*)] Mirtazapine TAB* [Remeron TAB*] 15 mg PO BEDTIME 03/18/17 05/20/19 History Suvorexant (NF) [Belsomra (NF)] 20 mg PO BEDTIME 03/18/17 05/20/19 History tiZANidine TAB* [Zanaflex TAB*] 12 mg PO BEDTIME #30 tab 03/22/17 05/20/19 Rx Adalimumab (NF) [Humira Pen (NF)] 40 mg SUBCUT .TWICE MONTHLY 09/06/17 05/20/19 History Naltrexone TAB* 4.5 mg PO DAILY 09/06/17 05/20/19 History Folic Acid TAB* [Folvite TAB*] 1 mg PO DAILY 05/13/19 05/20/19 History Methotrexate TAB* 7.5 mg PO WEEKLY 05/13/19 05/20/19 History Negative: Fever, Chills Negative: Shortness Of Breath Negative: Vomiting, Nausea Neurological: Other - Seizure Positive: Headache All Other Systems Reviewed And Are Negative: Yes Physical Exam - Summary Physical Exam Summary: General: Well-developed, Well-nourished male. No acute distress. HEENT: Normocephalic, Atraumatic. Eyes: Conjuctiva normal, PERRL. Oropharynx: Clear, mucous membranes moist, (-) exudates. Neck: Soft, FROM, (-) lymphadenopathy, (-) thyromegaly, (-) JVD. Cardiovascular: Normal sinus rhythm, (-) murmur. Lungs: Clear to auscultation bilaterally (-) wheezes, (-) rales, (-) rhonchi. Abdomen: Soft, non-tender, non-distended, (-) organomegaly, normal bowel sounds. Back: (-) CVA tenderness Extremities: No edema. Skin: Warm, dry, (-) rash. Neuro: Alert and oriented x3, no focal deficits. Psychiatric: Mood normal, Flat affect Triage Information Reviewed: Yes Vital Signs On Initial Exam: Initial Vitals Temp Pulse Resp BP Pulse Ox 98.1 F 77 18 168/94 97 05/20/19 19:30 05/20/19 19:30 05/20/19 19:30 05/20/19 19:30 05/20/19 19:30 Vital Signs Reviewed: Yes Procedures - Sedation Patient Received Moderate/Deep Sedation with Procedure: No Diagnostics - Vital Signs Vital Signs Temp Pulse Resp BP Pulse Ox 05/20/19 19:35 79 20 98 05/20/19 19:30 98.1 F 77 18 168/94 97 - Laboratory Result Diagrams: 05/20/19 20:17 05/20/19 20:17 Lab Statement: Any lab studies that have been ordered have been reviewed, and results considered in the medical decision making process. - EKG 2006 Cardiac Rate: NL - 68 BPM EKG Rhythm: Sinus Rhythm EKG Comparison: No Significant Change - No acute changes from 05/13/19, no STEMI Summary of EKG Findings: EKG at 2005 reveals normal sinus rhythm with rate of 68 BPM, no acute changes since 05/13/19, no ischemic changes. This EKG was reviewed and interpreted by Dr. Machado at 200705/20/19. Headache Course/Dx - Course Course Of Treatment: 53-year-old male presents by ambulance after reported seizure on a bus. Has known seizure disorder. Patient admits he is been under a severe amount of stress at work over the last few months. Is actually seen here couple weeks ago for headaches. He was admitted to the hospital at that time. Workup essentially negative. Given IV fluids. L will pending. Patient discharged home. Follow up with PCP. Follow-up sooner for any worsening symptoms. Assessment/Plan: maya hernandez - Diagnoses Provider Diagnoses: Seizure, Headache Discharge ED - Sign-Out/Discharge Documenting (check all that apply): Patient Departure - discharge - Discharge Plan Condition: Stable Disposition: HOME Patient Education Materials: Nonepileptic Seizures (ED), General Headache (ED) Referrals: Dannielle Jimenes MD [Primary Care Provider] - 3 Days Additional Instructions: PLEASE FOLLOW UP WITH YOUR PRIMARY CARE PHYSICIAN IN 1-3 DAYS AND RETURN TO THE EMERGENCY DEPARTMENT FOR ANY NEW OR WORSENING SYMPTOMS. - Billing Disposition and Condition Condition: STABLE Disposition: Home - Attestation Statements Document Initiated by Hemant: Yes Documenting Scribe: Jewel Shah Provider For Whom Hemant is Documenting (Include Credential): Sofiya Machado MD Scribe Attestation: IJewel, scribed for Sofiya Machado MD on 05/24/19 at 2302. Scribe Documentation Reviewed: Yes Provider Attestation: The documentation as recorded by the Jewel barclay accurately reflects the service I personally performed and the decisions made by me, Sofiya Machado MD Status of Scribe Document: Viewed
[2019-05-20 20:33] LABS: ABS Lymphocytes 1.6 10^3/ul (1.0-4.8); ABS Monocytes 0.5 10^3/ul (0-0.8); ABS Neutrophils 4.9 10^3/ul (1.5-7.7); Eosinophil % 0.7 %; Hematocrit 45 % (42-52); Hemoglobin 15.4 g/dL (14.0-18.0); Lymphocyte % 22.6 %; Mean Corpuscular HGB Conc 35 g/dL (31-36); Mean Corpuscular Hemoglobin 34 pg (27-31); Mean Corpuscular Volume 97 fL (80-94); Mean Platelet Volume 8.3 fL (7.4-10.4); Platelet Count 162 10^3/uL (150-450); Red Blood Count 4.58 10^6 /uL (4.18-5.48); Red Cell Distribution Width 14 % (10-15)
[2019-05-20 20:35] LABS: Urine Appearance Clear; Urine Bilirubin Negative (Negative); Urine Blood Negative (Negative); Urine Color Yellow; Urine Glucose Negative (Negative); Urine Ketones Negative (Negative); Urine Nitrite Negative (Negative); Urine Protein 1+(30 mg/dL) (Negative); Urine Specific Gravity 1.016 (1.010-1.030); Urine Urobilinogen Negative (Negative)
[2019-05-20 20:38] LABS: INR 0.91 (0.82-1.09)
[2019-05-20 20:38] LABS: Urine Benzodiazepine Screen Presumptive Positive (None Detect); Urine Opiates Screen None Detected (None Detect)
--- OUTSIDE RECORDS SUMMARY | 2019-05-20 20:41 | XMS REPORT | Continuity of Care Document ---
:1965 External Reference #:[id number] Author Name Brando Lozano M.D. Address 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 Onset: 02/14/2016 Ankylosing spondylitis Brando Lozano M.D. Onset: 02/14/2016 Social History Type Date Description Comments Sex Unknown ETOH Use Rarely consumes alcohol Tobacco Use Start: Unknown Patient has never smoked Smoking Status Reviewed: 05/20/19 Patient has never smoked Allergies, Adverse Reactions, Alerts Active Allergies Reaction Severity Comments Date Remeron works but groggy, dry mouth all day. 05/11/2012 Doxepin works for sleep but too groggy and dry 05/11/2012 mouth the next day Restoril 05/24/2011 Penicillins 04/11/2010 Lyrica headaches, elevated heart rate, high 02/28/2009 anxiety. Medications Active Medications SIG Qnty Indications Ordering Provider Date Fluconazole 1 by mouth. 4tabs B37.42 Unknown 04/01/2017 150mg repeat in 4-6 Tablets days as necessary. hot die picker only when done with levaquin if still needed. Tizanidine HCL 2 by mouth at at 60tabs G89.4 Hero Maldonado MD 04/23/2012 4mg bedtime T. Tablets Gabapentin 1-2 by mouth At Unknown 300mg hs Capsules Humira q 2 weeks Unknown 40mg/0.8ML PSKT Folic Acid 1 by mouth every Unknown 1mg Tablets day Belsomra 1 at bedtime as Unknown 20mg Tablets needed for sleep Keppra 1500 at night Unknown 1000mg Tablets Xanax XR Unknown 3mg Tablets ER 24HR Immunizations Description No Information Available Vital Signs Date Vital Result Comment 05/20/2019 10:50am Intraocular Pressure Right Eye 18 mmHg Intraocular Pressure Left Eye 17 mmHg 02/14/2016 10:55am Intraocular Pressure Right Eye 15 mmHg Intraocular Pressure Left Eye 15 mmHg Results Description No Information Available Procedures Date Code Description Status 05/20/2019 42788 Ophthalmoscopy Initial Completed 05/20/2019 79105 Oct Retina Completed 05/20/2019 22908 Refraction Completed 05/20/2019 52395 Eye Exam New Comprehensive Completed Medical Devices Description No Information Available Encounters Description No Information Available Assessments Date Code Description Provider 05/20/2019 M45.0 Ankylosing spondylitis of multiple sites in Brando Lozano M.D. spine 05/20/2019 H52.4 Presbyopia Brando Lozano M.D. 05/20/2019 H35.361 Drusen (degenerative) of macula, right eye Brando Lozano M.D. Plan of Treatment 05/20/2019 - Brando Lozano M.D.M45.0 Ankylosing spondylitis of multiple sites in fudwjF44.4 PresbyopiaFollow up:1 yrH35.361 Drusen (degenerative) of macula, right eye Functional Status Description No Information Available Mental Status Description No Information Available Referrals Description No Information Available
[2019-05-20] MEDS ORDERED: Metoclopramide IV* 5 MG/ML 2 ML VIAL IV SLOW PU ONE (20:44)
[2019-05-20 20:49] LABS: Urine Bacteria Absent (Absent); Urine Red Blood Cell Absent (Absent); Urine Squamous Epithelial Cell Present (Absent); Urine White Blood Cell Absent (Absent)
[2019-05-20 20:49] LABS: ALT 58 U/L (7-52); Albumin 4.4 g/dL (3.2-5.2); Albumin/Globulin Ratio 1.7 (1-3); Alkaline Phosphatase 46 U/L (34-104); BUN/Creatinine Ratio 14.3 (8-20); Blood Urea Nitrogen 14 mg/dL (6-24); CO2 Carbon Dioxide 32 mmol/L (22-32); Calcium 9.3 mg/dL (8.6-10.3); Chloride 101 mmol/L (101-111); EGFR African American 97.2 (>60); EGFR Non-African American 80.3 (>60); Globulin 2.6 g/dL (2-4); Glucose 95 mg/dL (70-100); Sodium 140 mmol/L (135-145)
[2019-05-20 20:55] LABS: Alcohol < 10 mg/dL (<10)
[2019-05-20 21:10] LABS: TSH (Thyroid Stimulating Horm) 7.08 mcIU/mL (0.34-5.60)
[2019-05-20 21:26] LABS: AST 54 U/L (13-39); Anion Gap 7 mmol/L (2-11); Potassium 4.2 mmol/L (3.5-5.0)
[2019-05-20] MEDS ORDERED: Ketorolac INJ* 30 MG/ML 1 ML VIAL IV PUSH ONE (21:35)
[2019-05-20 22:12] VITALS: BP 154/92
== END 2019-05-20 22:09 | disposition home or self-care (01) ==
LOC: ED 19:22
DX: R51 Headache (principal); R56.9 Unspecified convulsions; C64.9 Malignant neoplasm of unspecified kidney, except renal pelvis; C78.7 Secondary malignant neoplasm of liver and intrahepatic bile duct; Z90.5 Acquired absence of kidney; Z79.899 Other long term (current) drug therapy; Z88.0 Allergy status to penicillin; Z88.8 Allergy status to other drugs, medicaments and biological substances; Z91.041 Radiographic dye allergy status
CPT/HCPCS: 36415; 80053; 80177; 80307; 80320; 81003; 81015; 83605; 83735; 84443; 85025; 85610; 93005; 96361; 96374; 96375; 99283; G0480; J1885; J2765

== ENCOUNTER 2021-01-17 09:18 | Inpatient (IN) ==
[2021-01-17 11:49] LABS: Albumin 4.7 g/dL (3.2-5.2); CO2 Carbon Dioxide 28 mmol/L (22-32); Calcium 9.1 mg/dL (8.6-10.3); Chloride 105 mmol/L (101-111); Sodium 140 mmol/L (135-145)
[2021-01-17 11:52] LABS: ABS Eosinophils 0.1 10^3/ul (0-0.6); ABS Lymphocytes 2.7 10^3/ul (1.0-4.8); ABS Monocytes 0.5 10^3/ul (0-0.8); ABS Neutrophils 3.5 10^3/ul (1.5-7.7); Eosinophil % 1.7 %; Hematocrit 49 % (42-52); Hemoglobin 16.4 g/dL (14.0-18.0); Lymphocyte % 39.4 %; Mean Corpuscular HGB Conc 34 g/dL (31-36); Mean Corpuscular Hemoglobin 34 pg (27-31); Mean Corpuscular Volume 100 fL (80-94); Nucleated Red Blood Cells % 0.1; Red Blood Count 4.84 10^6 /uL (4.18-5.48); Red Cell Distribution Width 14 % (10-15); White Blood Count 6.9 10^3/uL (3.5-10.8)
[2021-01-17 11:55] LABS: ALT 26 U/L (7-52); Albumin/Globulin Ratio 1.5 (1-3); Alkaline Phosphatase 67 U/L (35-149); Blood Urea Nitrogen 14 mg/dL (6-24); EGFR African American 85.3 (>60); EGFR Non-African American 70.5 (>60); Globulin 3.1 g/dL (2-4); Glucose 88 mg/dL (70-100); Total Protein 7.8 g/dL (6.4-8.9)
[2021-01-17 12:23] LABS: Mean Platelet Volume 8.4 fL (7.4-10.4); Platelet Count 107 10^3/uL (150-450)
[2021-01-17 12:25] LABS: Alcohol, S < 13 mg/dL (<10); Salicylate < 2.50 mg/dL (<30)
[2021-01-17 12:27] LABS: Acetaminophen < 15 mcg/mL
[2021-01-17 12:28] LABS: Anion Gap 7 mmol/L (2-11)
[2021-01-17] MEDS ORDERED: Al Hydrox/Mg Hydrox/Simet LIQ 30 ML UDC PO PRN (12:40)
[2021-01-17 12:55] LABS: TSH Ultra Thyroid Stim Horm 5.56 mcIU/mL (0.34-5.60)
[2021-01-17 15:06] LABS: Urine Appearance Clear; Urine Bilirubin Negative (Negative); Urine Blood Negative (Negative); Urine Color Yellow; Urine Glucose Negative (Negative); Urine Ketones Negative (Negative); Urine Nitrite Negative (Negative); Urine Protein Negative (Negative); Urine Urobilinogen Negative (Negative)
[2021-01-17 15:09] LABS: Urine Bacteria Absent (Absent); Urine Red Blood Cell Trace(0-2/hpf) (Absent); Urine White Blood Cell Trace(0-5/hpf) (Absent)
[2021-01-17 15:28] LABS: Urine Benzodiazepine Screen Presumptive Positive (None Detect); Urine Cannabinoids Screen None Detected (None Detect); Urine Opiates Screen None Detected (None Detect)
[2021-01-18 08:07] LABS: HDL Cholesterol 65.9 mg/dL
[2021-01-18] MEDS: DULoxetine DR 20 mg CAP PO SCH (19:56)
[2021-01-19] MEDS: DULoxetine DR 20 mg CAP PO SCH (07:19)
[2021-01-19 08:22] VITALS: BP 141/90
== END 2021-01-19 13:00 | disposition home or self-care (01) | DRG 756 ==
LOC: ED 09:18 → BSU 12:40 → ED 15:52
PROVIDERS: ADMIT Psychiatry & Neurology Psychiatry; ATTEND Psychiatry & Neurology Psychiatry

== ENCOUNTER 2021-02-27 09:04 | Inpatient (IN) ==
[2021-02-27 10:36] LABS: ABS Neutrophils 7.7 10^3/ul (1.5-7.7); Eosinophil % 0.3 %; Hematocrit 39 % (42-52); Hemoglobin 13.5 g/dL (14.0-18.0); Lymphocyte % 10.6 %; Mean Corpuscular HGB Conc 35 g/dL (31-36); Mean Corpuscular Hemoglobin 34 pg (27-31); Mean Corpuscular Volume 98 fL (80-94); Mean Platelet Volume 7.3 fL (7.4-10.4); Platelet Count 186 10^3/uL (150-450); Red Blood Count 3.99 10^6 /uL (4.18-5.48); Red Cell Distribution Width 13 % (10-15); White Blood Count 9.8 10^3/uL (3.5-10.8)
[2021-02-27 10:55] LABS: ALT 19 U/L (7-52); AST 32 U/L (13-39); Albumin 3.9 g/dL (3.2-5.2); Albumin/Globulin Ratio 1.4 (1-3); Alkaline Phosphatase 71 U/L (35-149); Anion Gap 3 mmol/L (2-11); Blood Urea Nitrogen 15 mg/dL (6-24); CO2 Carbon Dioxide 33 mmol/L (22-32); Calcium 8.5 mg/dL (8.6-10.3); Chloride 99 mmol/L (101-111); Creatine Kinase 1034 U/L (10-223); EGFR African American 68.4 (>60); EGFR Non-African American 56.5 (>60); Globulin 2.8 g/dL (2-4); Glucose 125 mg/dL (70-100); Magnesium 2.5 mg/dL (1.9-2.7); Potassium 4.1 mmol/L (3.5-5.0); Sodium 135 mmol/L (135-145); Total Protein 6.7 g/dL (6.4-8.9)
[2021-02-27 10:57] LABS: Troponin I 0.04 ng/mL (<0.03)
[2021-02-27] MEDS ORDERED: NS 0.9% 1000 ml BAG 1,000 ML IV SCH (13:15)
[2021-02-27 13:51] LABS: Urine Appearance Turbid; Urine Bilirubin Negative (Negative); Urine Blood 3+ (Negative); Urine Color Amber; Urine Glucose Negative (Negative); Urine Ketones Negative (Negative); Urine Nitrite Positive (Negative); Urine Protein 2+(100 mg/dL) (Negative); Urine Specific Gravity 1.011 (1.002-1.030); Urine Urobilinogen Negative (Negative)
[2021-02-27 14:00] LABS: Urine Bacteria 3+ (Absent); Urine Red Blood Cell 3+(>10/hpf) (Absent); Urine White Blood Cell 3+(>20/hpf) (Absent)
[2021-02-27 14:49] LABS: Troponin I 0.04 ng/mL (<0.03)
[2021-02-27] MEDS ORDERED: NS 0.9% 500 ml BAG 500 ML IV ONE (17:54)
[2021-02-27] MEDS: cefTRIAXone 1 gm/50 mL NS BAG 1 GM/50 ML BAG IVPB SCH (21:44)
[2021-02-27] MEDS: NS 0.9% 1000 ml BAG 1,000 ML IV SCH (21:45)
[2021-02-27] MEDS: Morphine ER 30 mg TAB ** extended release PO SCH (22:37)
[2021-02-28] MEDS: NS 0.9% 1000 ml BAG 1,000 ML IV SCH (05:46)
[2021-02-28 06:11] LABS: Hematocrit 36 % (42-52); Hemoglobin 12.6 g/dL (14.0-18.0); Mean Corpuscular HGB Conc 35 g/dL (31-36); Mean Corpuscular Hemoglobin 34 pg (27-31); Mean Corpuscular Volume 98 fL (80-94); Mean Platelet Volume 7.4 fL (7.4-10.4); Platelet Count 177 10^3/uL (150-450); Red Blood Count 3.68 10^6 /uL (4.18-5.48); Red Cell Distribution Width 13 % (10-15); White Blood Count 5.3 10^3/uL (3.5-10.8)
[2021-02-28 06:28] LABS: Calcium 7.9 mg/dL (8.6-10.3); EGFR African American 90.1 (>60); EGFR Non-African American 74.4 (>60)
[2021-02-28] MEDS ORDERED: Flu vaccine *QUAD* 2021-22* 0.5 ML SYRINGE IM ONE (09:00)
[2021-02-28] MEDS: Fluticasone NASAL SPRAY 50MCG 16 gm SPRAY BTL BOTH NARES SCH ×2 (10:05→10:08)
[2021-02-28] MEDS: Morphine ER 30 mg TAB ** extended release PO SCH ×2 (10:05→22:41)
[2021-02-28] MEDS: cefTRIAXone 1 gm/50 mL NS BAG 1 GM/50 ML BAG IVPB SCH (22:54)
[2021-03-01 05:01] LABS: ABS Eosinophils 0.2 10^3/ul (0-0.6); ABS Lymphocytes 2.2 10^3/ul (1.0-4.8); ABS Monocytes 0.4 10^3/ul (0-0.8); ABS Neutrophils 2.6 10^3/ul (1.5-7.7); Eosinophil % 3.4 %; Hematocrit 39 % (42-52); Hemoglobin 13.3 g/dL (14.0-18.0); Lymphocyte % 39.8 %; Mean Corpuscular HGB Conc 34 g/dL (31-36); Mean Corpuscular Hemoglobin 33 pg (27-31); Mean Corpuscular Volume 98 fL (80-94); Mean Platelet Volume 7.4 fL (7.4-10.4); Platelet Count 211 10^3/uL (150-450); Red Blood Count 3.99 10^6 /uL (4.18-5.48); Red Cell Distribution Width 13 % (10-15); White Blood Count 5.5 10^3/uL (3.5-10.8)
[2021-03-01 05:19] LABS: Calcium 8.2 mg/dL (8.6-10.3); EGFR African American 96.4 (>60); EGFR Non-African American 79.7 (>60); Potassium 4.2 mmol/L (3.5-5.0)
[2021-03-01] MEDS: Morphine ER 30 mg TAB ** extended release PO SCH (08:00)
[2021-03-01 08:04] VITALS: BP 142/80
[2021-03-01] MEDS: Fluticasone NASAL SPRAY 50MCG 16 gm SPRAY BTL BOTH NARES SCH (08:06)
== END 2021-03-01 16:45 | disposition home or self-care (01) | DRG 463 ==
LOC: ED 09:04 → SUATTDRO 13:12 → MED 13:12 → MEDTELE 02-28 06:41
PROVIDERS: ADMIT Internal Medicine; ATTEND Internal Medicine

== ENCOUNTER 2021-03-21 05:58 | Day surgery (SDC) ==
[2021-03-21] MEDS ORDERED: Lactated Ringers 1000 ml BAG 1,000 ML IV SCH (06:00)
[2021-03-21] MEDS ORDERED: Buffered Lidocaine 1% SYRIN 1 ml INTRADERM ONE ×2 (06:00→06:55)
[2021-03-21 06:51] VITALS: BP 129/87
[2021-03-21] MEDS ORDERED: Gadoteridol (CONTRAST) 279.3 MG/ML 10 ML IV ONE (06:51)
[2021-03-21] MEDS ORDERED: Dexamethasone IV 4 MG/ML VIAL 1 ml VIAL ONE (06:55)
[2021-03-21] MEDS ORDERED: Lidocaine 2% PF 5 ML VIAL ONE (06:55)
[2021-03-21] MEDS ORDERED: Phenylephrine 40 mcg/mL 10mL (400mcg) SYRINGE ONE (06:55)
[2021-03-21] MEDS ORDERED: Midazolam 2 mg/2 ml VIAL 1 mg/ml 2 ml VIAL (2 mg) ONE (06:55)
[2021-03-21] MEDS ORDERED: Propofol 10 MG/ML 20 ML BTL ONE (06:55)
[2021-03-21] MEDS ORDERED: Succinylcholine 200 mg VIAL 20 mg/ml 10 ml VIAL (200 mg) ONE (06:55)
[2021-03-21] MEDS ORDERED: Rocuronium 50 mg VIAL 10 mg/ml 5 ml VIAL (50 mg) ONE (06:55)
[2021-03-21] MEDS ORDERED: DiMENhydriNATE IV 50 mg/ml 1 ml VIAL IV PUSH PRN (08:45)
[2021-03-21] MEDS ORDERED: diPHENhydraMINE IV 50 MG/ML 1 ml VIAL (BENADRYL) IV PRN (08:45)
[2021-03-21] MEDS ORDERED: Acetaminophen IV 1 GM/100ML 100 ML IV PRN (08:45)
[2021-03-21] MEDS ORDERED: Ondansetron 4 mg VIAL 2 MG/ML 2 ml VIAL IV PRN (08:45)
[2021-03-21] MEDS ORDERED: Acetaminophen IV 1 GM/100ML 100 ML IV ONE (11:03)
[2021-03-21] MEDS: HYDROmorphone 1 MG/1 ML SYRINGE IV PRN ×5 (11:10→11:50)
[2021-03-21] MEDS ORDERED: HYDROmorphone 1 MG/1 ML SYRINGE ONE (11:24)
[2021-03-21] MEDS ORDERED: fentaNYL 100 mcg/2 ml 50 MCG/ML VIAL ONE (11:46)
[2021-03-21] MEDS: fentaNYL 100 mcg/2 ml 50 MCG/ML VIAL IV PRN ×4 (11:50→12:05)
== END 2021-03-21 12:25 | disposition home or self-care (01) ==
LOC: EDACCT# → OR 05:58 → AA 06:11 → OR 14:22
PROVIDERS: ATTEND Psychiatry & Neurology Neurology with Special Qualifications in Child Neurology
PROC: O.ANMRI (2021-03-21 07:30)

== ENCOUNTER 2021-04-05 13:14 | Inpatient (IN) ==
[2021-04-05] MEDS ORDERED: Lactated Ringers 1000 ml BAG 1,000 ML IV ONE ×2 (13:40)
[2021-04-05] MEDS ORDERED: Orphenadrine Citrate INJ 30 mg/ml 2 ml VIAL (60 mg) IV ONE (13:58)
[2021-04-05 14:22] LABS: ABS Lymphocytes 1.2 10^3/ul (1.0-4.8); ABS Monocytes 0.8 10^3/ul (0-0.8); ABS Neutrophils 15.6 10^3/ul (1.5-7.7); Hematocrit 40 % (42-52); Hemoglobin 14.1 g/dL (14.0-18.0); Lymphocyte % 6.9 %; Mean Corpuscular HGB Conc 35 g/dL (31-36); Mean Corpuscular Hemoglobin 34 pg (27-31); Mean Corpuscular Volume 98 fL (80-94); Mean Platelet Volume 7.4 fL (7.4-10.4); Platelet Count 214 10^3/uL (150-450); Red Blood Count 4.12 10^6 /uL (4.18-5.48); Red Cell Distribution Width 15 % (10-15); White Blood Count 17.6 10^3/uL (3.5-10.8)
[2021-04-05 14:46] LABS: ALT 251 U/L (7-52); AST 142 U/L (13-39); Albumin 3.9 g/dL (3.2-5.2); Albumin/Globulin Ratio 0.9 (1-3); Alkaline Phosphatase 60 U/L (35-149); Anion Gap 6 mmol/L (2-11); Blood Urea Nitrogen 15 mg/dL (6-24); C Reactive Protein 183.46 mg/L (<8.01); CO2 Carbon Dioxide 27 mmol/L (22-32); Calcium 9.2 mg/dL (8.6-10.3); Chloride 102 mmol/L (101-111); Creatine Kinase 292 U/L (10-223); Globulin 4.2 g/dL (2-4); Glucose 126 mg/dL (70-100); Potassium 3.9 mmol/L (3.5-5.0); Sodium 135 mmol/L (135-145); Total Protein 8.1 g/dL (6.4-8.9)
[2021-04-05 14:54] LABS: Troponin I 0.03 ng/mL (<0.03)
[2021-04-05 14:59] LABS: Activated Partial Thrombo Time 34.4 seconds (26.0-38.0); INR 1.5 (0.86-1.15)
[2021-04-05] MEDS ORDERED: HYDROmorphone 1 MG/1 ML SYRINGE IV ONE (15:54)
[2021-04-05] MEDS ORDERED: Cefepime 2 GM in Dextrose 2 GM/50 ML BAG IV ONE (17:10)
[2021-04-05] MEDS ORDERED: Ondansetron 4 mg VIAL 2 MG/ML 2 ml VIAL IV PRN (18:31)
[2021-04-05] MEDS ORDERED: HYDROmorphone 1 MG/1 ML SYRINGE IV PRN (18:44)
[2021-04-05] MEDS ORDERED: NS 0.9% 1000 ml BAG 1,000 ML IV SCH (18:45)
[2021-04-05 20:21] LABS: Urine Appearance Cloudy; Urine Bilirubin Negative (Negative); Urine Blood 1+ (Negative); Urine Color Yellow; Urine Glucose Negative (Negative); Urine Ketones Negative (Negative); Urine Nitrite Positive (Negative); Urine Protein 2+(100 mg/dL) (Negative); Urine Specific Gravity 1.012 (1.002-1.030); Urine Urobilinogen Negative (Negative)
[2021-04-05 20:36] LABS: Rapid COVID-19 Molecular Undetected (Undetected)
[2021-04-05 20:55] LABS: Urine Bacteria 1+ (Absent); Urine Red Blood Cell 3+(>10/hpf) (Absent); Urine Squamous Epithelial Cell Present (Absent); Urine White Blood Cell 3+(>20/hpf) (Absent)
[2021-04-05] MEDS ORDERED: RHO D Immune Globulin (HUMAN) 300 MCG = 1,500 I.U. INJ IM SCH (22:00)
[2021-04-06 02:31] LABS: PCO2 Arterial 44 mmHg (35-45); PO2 Arterial 130 mmHg (80-100)
[2021-04-06] MEDS: cefTRIAXone 1 gm/50 mL NS BAG 1 GM/50 ML BAG IVPB SCH (02:35)
[2021-04-06] MEDS: NS 0.9% 1000 ml BAG 1,000 ML IV SCH (02:44)
[2021-04-06] MEDS ORDERED: Norepinephrine 16MCG/ML IVPRE 4,000 MCG/250 ML BAG IV SCH (03:00)
[2021-04-06] MEDS ORDERED: Lactated Ringers 1000 ml BAG 1,000 ML IV SCH (03:00)
[2021-04-06] MEDS ORDERED: NORMOSOL-R pH 7.4 1000 mL BAG 1,000 ML IV SCH (03:00)
[2021-04-06] MEDS ORDERED: Norepinephrine IV 4 MG in NS 0.9% 250 ml 246 ML IV SCH (03:00)
[2021-04-06 06:09] LABS: ABS Lymphocytes 1.2 10^3/ul (1.0-4.8); ABS Monocytes 0.7 10^3/ul (0-0.8); ABS Neutrophils 10.5 10^3/ul (1.5-7.7); Hematocrit 32 % (42-52); Hemoglobin 10.7 g/dL (14.0-18.0); Lymphocyte % 9.7 %; Mean Corpuscular HGB Conc 34 g/dL (31-36); Mean Corpuscular Hemoglobin 34 pg (27-31); Mean Corpuscular Volume 99 fL (80-94); Mean Platelet Volume 7.3 fL (7.4-10.4); Platelet Count 174 10^3/uL (150-450); Red Blood Count 3.17 10^6 /uL (4.18-5.48); Red Cell Distribution Width 15 % (10-15); White Blood Count 12.4 10^3/uL (3.5-10.8)
[2021-04-06 06:22] LABS: Calcium 7.6 mg/dL (8.6-10.3); Potassium 4.1 mmol/L (3.5-5.0)
[2021-04-06] MEDS ORDERED: Cefepime 2 GM in Dextrose 2 GM/50 ML BAG IV SCH (06:30)
[2021-04-06 09:24] LABS: Folate 15.93 ng/mL (5.90-24.80)
[2021-04-06] MEDS ORDERED: fentaNYL 100 mcg/2 ml 50 MCG/ML VIAL IV SLOW PU ONE (14:37)
[2021-04-06] MEDS ORDERED: HYDROmorphone 0.5 MG/0.5 ML SYRINGE IV SLOW PU ONE (16:17)
[2021-04-06] MEDS ORDERED: cefTRIAXone 1 gm/50 mL NS BAG 1 GM/50 ML BAG IVPB SCH (21:00)
[2021-04-06] MEDS: HYDROmorphone 0.5 MG/0.5 ML SYRINGE IV SLOW PU PRN (21:03)
[2021-04-07] MEDS: cefTRIAXone 1 gm/50 mL NS BAG 1 GM/50 ML BAG IVPB SCH (00:42)
[2021-04-07] MEDS: HYDROmorphone 0.5 MG/0.5 ML SYRINGE IV SLOW PU PRN ×4 (03:42→20:25)
[2021-04-07 18:09] LABS: Hematocrit 35 % (42-52); Hemoglobin 12.2 g/dL (14.0-18.0); Mean Corpuscular HGB Conc 35 g/dL (31-36); Mean Corpuscular Hemoglobin 34 pg (27-31); Mean Corpuscular Volume 97 fL (80-94); Mean Platelet Volume 7.2 fL (7.4-10.4); Platelet Count 260 10^3/uL (150-450); Red Blood Count 3.59 10^6 /uL (4.18-5.48); Red Cell Distribution Width 15 % (10-15); White Blood Count 6.5 10^3/uL (3.5-10.8)
[2021-04-07 18:15] LABS: Calcium 8.4 mg/dL (8.6-10.3); Magnesium 1.9 mg/dL (1.9-2.7); Phosphorus 1.8 mg/dL (2.5-5.0); Potassium 3.7 mmol/L (3.5-5.0)
[2021-04-08] MEDS: HYDROmorphone 0.5 MG/0.5 ML SYRINGE IV SLOW PU PRN (00:33)
[2021-04-08] MEDS: cefTRIAXone 1 gm/50 mL NS BAG 1 GM/50 ML BAG IVPB SCH (02:10)
[2021-04-08] MEDS ORDERED: Sodium Phosphate IV 15 MMOLE in NS 0.9% 250 ml 250 ML IV ONE (08:15)
[2021-04-08 08:51] LABS: Albumin 3.4 g/dL (3.2-5.2); Albumin/Globulin Ratio 0.9 (1-3); Calcium 8.5 mg/dL (8.6-10.3); Direct Bilirubin 0.1 mg/dL (0.03-0.18); Globulin 3.8 g/dL (2-4); Indirect Bilirubin 0.5 mg/dL (0.3-1.0); Magnesium 1.9 mg/dL (1.9-2.7); Phosphorus 2.4 mg/dL (2.5-5.0); Potassium 4.4 mmol/L (3.5-5.0); Total Bilirubin 0.6 mg/dL (0.2-1.0); Total Protein 7.2 g/dL (6.4-8.9)
[2021-04-08 10:38] LABS: ABS Eosinophils 0.1 10^3/ul (0-0.6); ABS Lymphocytes 1.5 10^3/ul (1.0-4.8); ABS Monocytes 0.6 10^3/ul (0-0.8); ABS Neutrophils 3.6 10^3/ul (1.5-7.7); Eosinophil % 2.5 %; Hematocrit 36 % (42-52); Hemoglobin 12.7 g/dL (14.0-18.0); Lymphocyte % 26.1 %; Mean Corpuscular HGB Conc 35 g/dL (31-36); Mean Corpuscular Hemoglobin 34 pg (27-31); Mean Corpuscular Volume 98 fL (80-94); Mean Platelet Volume 6.9 fL (7.4-10.4); Platelet Count 287 10^3/uL (150-450); Red Blood Count 3.68 10^6 /uL (4.18-5.48); Red Cell Distribution Width 14 % (10-15); White Blood Count 5.9 10^3/uL (3.5-10.8)
[2021-04-08] MEDS ORDERED: HYDROcodone/ACETAMIN 5/325 mg TAB PO PRN (13:00)
[2021-04-08 16:36] VITALS: BP 134/89
== END 2021-04-08 18:05 | disposition home or self-care (01) | DRG 720 ==
LOC: ED 13:14 → EDHOLD 18:31 → SUATTDRO 18:31 → ICU 04-06 02:12 → SSU 04-07 07:42
PROVIDERS: ADMIT Hospitalist; ATTEND Internal Medicine

== ENCOUNTER 2022-01-19 17:58 | Inpatient (IN) ==
[2022-01-19] MEDS ORDERED: Orphenadrine Citrate INJ 30 mg/ml 2 ml VIAL (60 mg) IV ONE (19:01)
[2022-01-19] MEDS ORDERED: HYDROmorphone 1 MG/1 ML SYRINGE IV SLOW PU ONE ×2 (19:09→21:45)
[2022-01-19 20:50] LABS: Hematocrit 39 % (42-52); Hemoglobin 13.3 g/dL (14.0-18.0); Mean Corpuscular HGB Conc 34 g/dL (31-36); Mean Corpuscular Hemoglobin 34 pg (27-31); Mean Corpuscular Volume 99 fL (80-94); Mean Platelet Volume 6.6 fL (7.4-10.4); Platelet Count 155 10^3/uL (150-450); Red Blood Count 3.94 10^6 /uL (4.18-5.48); Red Cell Distribution Width 14 % (10-15); White Blood Count 6.4 10^3/uL (3.5-10.8)
[2022-01-19 21:21] LABS: Albumin 3.3 g/dL (3.2-5.2); Albumin/Globulin Ratio 1.4 (1-3); Calcium 8.3 mg/dL (8.6-10.3); Globulin 2.3 g/dL (2-4); Potassium 4.4 mmol/L (3.5-5.0); Total Bilirubin 0.5 mg/dL (0.2-1.0); Total Protein 5.6 g/dL (6.4-8.9); eGFR CKD-EPI 87.8 (>60)
[2022-01-19 21:25] LABS: Urine Appearance Clear; Urine Bilirubin Negative (Negative); Urine Blood Negative (Negative); Urine Color Yellow; Urine Glucose Negative (Negative); Urine Ketones Negative (Negative); Urine Protein Negative (Negative); Urine Urobilinogen 0.2 (Negative) (Negative)
[2022-01-19 21:26] LABS: Urine Nitrite Negative (Negative)
[2022-01-19 21:41] LABS: ABS Lymphocytes 0.7 10^3/ul (1.0-4.8); ABS Monocytes 0.5 10^3/ul (0-0.8); ABS Neutrophils 5.1 10^3/ul (1.5-7.7); Eosinophil % 0.1 %; Lymphocyte % 10.9 %; Nucleated Red Blood Cells % 0.1; RBC Morphology Normal (Normal)
[2022-01-20] MEDS ORDERED: HYDROmorphone 1 MG/1 ML SYRINGE IV SLOW PU ONE (00:36)
[2022-01-20] MEDS ORDERED: HYDROmorphone 1 MG/1 ML SYRINGE IV ONE (02:42)
[2022-01-20] MEDS: HYDROmorphone 0.5 MG/0.5 ML SYRINGE IV SLOW PU PRN ×2 (06:19→09:48)
[2022-01-20] MEDS ORDERED: ENTECAVIR 0.5 MG PO SCH (09:00)
[2022-01-20 09:17] LABS: Hematocrit 41 % (42-52); Mean Corpuscular HGB Conc 34 g/dL (31-36); Mean Corpuscular Hemoglobin 34 pg (27-31); Mean Corpuscular Volume 99 fL (80-94); Mean Platelet Volume 6.5 fL (7.4-10.4); Platelet Count 149 10^3/uL (150-450); Red Blood Count 4.17 10^6 /uL (4.18-5.48); Red Cell Distribution Width 14 % (10-15); White Blood Count 5.3 10^3/uL (3.5-10.8)
[2022-01-20] MEDS: Carboxymethylcellulos 1% OPTH 1 AMP BOTH EYES SCH ×4 (09:28→23:27)
[2022-01-20] MEDS: CMC:Cyclosporine 0.05% OPHTH (NF) 0.4 ML VIAL BOTH EYES SCH ×2 (09:28→23:27)
[2022-01-20 10:02] LABS: ABS Lymphocytes 0.8 10^3/ul (1.0-4.8); ABS Monocytes 0.4 10^3/ul (0-0.8); Eosinophil % 0.6 %; Lymphocyte % 15.6 %; Nucleated Red Blood Cells % 0.1
[2022-01-20 10:12] LABS: Calcium 8.3 mg/dL (8.6-10.3); Potassium 4.4 mmol/L (3.5-5.0); eGFR CKD-EPI 91.1 (>60)
[2022-01-20] MEDS: FESOTERODINE 4 MG PO SCH (13:27)
[2022-01-20] MEDS: PTO:Cevimeline 30 mg CAP (NF) PO SCH ×5 (13:28→23:26)
[2022-01-20] MEDS ORDERED: DULoxetine DR 60 mg CAP PO SCH (15:00)
[2022-01-20] MEDS: HYDROmorphone 1 MG/1 ML SYRINGE IV SLOW PU PRN ×4 (15:04→22:04)
[2022-01-21] MEDS: HYDROmorphone 1 MG/1 ML SYRINGE IV SLOW PU PRN ×6 (00:40→23:45)
[2022-01-21 05:43] LABS: Hematocrit 40 % (42-52); Hemoglobin 13.9 g/dL (14.0-18.0); Mean Corpuscular HGB Conc 35 g/dL (31-36); Mean Corpuscular Hemoglobin 34 pg (27-31); Mean Corpuscular Volume 98 fL (80-94); Mean Platelet Volume 6.4 fL (7.4-10.4); Platelet Count 164 10^3/uL (150-450); Red Blood Count 4.06 10^6 /uL (4.18-5.48); Red Cell Distribution Width 14 % (10-15); White Blood Count 6.1 10^3/uL (3.5-10.8)
[2022-01-21 06:21] LABS: Calcium 8.7 mg/dL (8.6-10.3); Potassium 4.5 mmol/L (3.5-5.0); eGFR CKD-EPI 79.3 (>60)
[2022-01-21 06:36] LABS: TSH Ultra Thyroid Stim Horm 0.08 mcIU/mL (0.34-5.60)
[2022-01-21 06:44] LABS: ABS Lymphocytes 1.1 10^3/ul (1.0-4.8); ABS Monocytes 0.5 10^3/ul (0-0.8); ABS Neutrophils 4.5 10^3/ul (1.5-7.7); Eosinophil % 0.7 %; Lymphocyte % 17.8 %; Nucleated Red Blood Cells % 0.1
[2022-01-21] MEDS: Carboxymethylcellulos 1% OPTH 1 AMP BOTH EYES SCH ×4 (08:54→20:56)
[2022-01-21] MEDS: ENTECAVIR 0.5 MG PO SCH (08:55)
[2022-01-21] MEDS: PTO:Cevimeline 30 mg CAP (NF) PO SCH ×4 (08:58→20:55)
[2022-01-21] MEDS: FESOTERODINE 4 MG PO SCH (08:59)
[2022-01-21] MEDS: CMC:Cyclosporine 0.05% OPHTH (NF) 0.4 ML VIAL BOTH EYES SCH ×2 (09:42→20:56)
[2022-01-21] MEDS: Sulfamethox/Trimethoprim DS TAB 800/160 mg PO SCH (09:42)
[2022-01-21] MEDS ORDERED: DULoxetine DR 60 mg CAP PO SCH (14:00)
[2022-01-21 16:15] LABS: C Reactive Protein 19.13 mg/L (<8.01)
[2022-01-22] MEDS: HYDROmorphone 1 MG/1 ML SYRINGE IV SLOW PU PRN ×6 (02:15→21:03)
[2022-01-22] MEDS ORDERED: Magnesium Hydroxide LIQ 30 ML UDC PO PRN (08:38)
[2022-01-22] MEDS: Carboxymethylcellulos 1% OPTH 1 AMP BOTH EYES SCH ×4 (08:58→20:21)
[2022-01-22] MEDS: CMC:Cyclosporine 0.05% OPHTH (NF) 0.4 ML VIAL BOTH EYES SCH ×2 (08:58→20:23)
[2022-01-22] MEDS: ENTECAVIR 0.5 MG PO SCH (09:00)
[2022-01-22] MEDS: PTO:Cevimeline 30 mg CAP (NF) PO SCH ×4 (09:02→20:19)
[2022-01-22] MEDS: FESOTERODINE 4 MG PO SCH (09:21)
[2022-01-22] MEDS: DULoxetine DR 60 mg CAP PO SCH (09:23)
[2022-01-22] MEDS ORDERED: HYDROmorphone 0.5 MG/0.5 ML SYRINGE IV SLOW PU ONE (13:18)
[2022-01-22 16:48] LABS: ABS Lymphocytes 0.9 10^3/ul (1.0-4.8); ABS Monocytes 0.7 10^3/ul (0-0.8); ABS Neutrophils 8.2 10^3/ul (1.5-7.7); Eosinophil % 0.3 %; Hematocrit 40 % (42-52); Hemoglobin 13.6 g/dL (14.0-18.0); Lymphocyte % 8.8 %; Mean Corpuscular HGB Conc 34 g/dL (31-36); Mean Corpuscular Hemoglobin 34 pg (27-31); Mean Corpuscular Volume 100 fL (80-94); Mean Platelet Volume 6.4 fL (7.4-10.4); Platelet Count 182 10^3/uL (150-450); Red Blood Count 4.05 10^6 /uL (4.18-5.48); Red Cell Distribution Width 14 % (10-15); White Blood Count 9.8 10^3/uL (3.5-10.8)
[2022-01-22 17:18] LABS: Blood Urea Nitrogen 17 mg/dL (6-24); CO2 Carbon Dioxide 36 mmol/L (22-32); Calcium 8.6 mg/dL (8.6-10.3); Chloride 98 mmol/L (101-111); Glucose 141 mg/dL (70-100); Sodium 136 mmol/L (135-145); eGFR CKD-EPI 79.3 (>60)
[2022-01-22 17:42] LABS: Vitamin B12 633 pg/mL (180-914)
[2022-01-22 18:14] LABS: Anion Gap 2 mmol/L (2-11)
[2022-01-22 19:51] LABS: Phosphorus 3.1 mg/dL (2.5-5.0); Potassium Redraw 4.8 mmol/L (3.5-5.0)
[2022-01-23] MEDS ORDERED: Labetalol IV 5 MG/ML 20 ml VIAL IV PUSH ONE (03:20)
[2022-01-23 06:42] LABS: ABS Lymphocytes 1.7 10^3/ul (1.0-4.8); ABS Monocytes 0.7 10^3/ul (0-0.8); ABS Neutrophils 8.4 10^3/ul (1.5-7.7); Eosinophil % 0.1 %; Hematocrit 39 % (42-52); Hemoglobin 13.9 g/dL (14.0-18.0); Lymphocyte % 15.8 %; Mean Corpuscular HGB Conc 35 g/dL (31-36); Mean Corpuscular Hemoglobin 35 pg (27-31); Mean Corpuscular Volume 99 fL (80-94); Mean Platelet Volume 6.4 fL (7.4-10.4); Platelet Count 180 10^3/uL (150-450); Red Blood Count 3.99 10^6 /uL (4.18-5.48); Red Cell Distribution Width 14 % (10-15); White Blood Count 10.9 10^3/uL (3.5-10.8)
[2022-01-23 07:24] LABS: Blood Urea Nitrogen 18 mg/dL (6-24); CO2 Carbon Dioxide 39 mmol/L (22-32); Calcium 8.8 mg/dL (8.6-10.3); Chloride 98 mmol/L (101-111); Glucose 93 mg/dL (70-100); Sodium 138 mmol/L (135-145); eGFR CKD-EPI 101.2 (>60)
[2022-01-23 07:27] LABS: Anion Gap 1 mmol/L (2-11)
[2022-01-23] MEDS: ENTECAVIR 0.5 MG PO SCH (09:44)
[2022-01-23] MEDS: DULoxetine DR 60 mg CAP PO SCH (09:45)
[2022-01-23] MEDS: PTO:Cevimeline 30 mg CAP (NF) PO SCH ×4 (09:46→20:31)
[2022-01-23] MEDS: CMC:Cyclosporine 0.05% OPHTH (NF) 0.4 ML VIAL BOTH EYES SCH ×2 (09:50→20:28)
[2022-01-23] MEDS: Carboxymethylcellulos 1% OPTH 1 AMP BOTH EYES SCH ×4 (09:50→20:29)
[2022-01-23] MEDS: FESOTERODINE 4 MG PO SCH (09:51)
[2022-01-23] MEDS: Sulfamethox/Trimethoprim DS TAB 800/160 mg PO SCH (10:47)
[2022-01-23] MEDS: HYDROmorphone 1 MG/1 ML SYRINGE IV SLOW PU PRN ×3 (10:47→21:34)
[2022-01-24] MEDS: HYDROmorphone 1 MG/1 ML SYRINGE IV SLOW PU PRN ×2 (03:24→08:10)
[2022-01-24] MEDS: DULoxetine DR 60 mg CAP PO SCH (09:58)
[2022-01-24] MEDS: CMC:Cyclosporine 0.05% OPHTH (NF) 0.4 ML VIAL BOTH EYES SCH ×2 (10:01→20:36)
[2022-01-24] MEDS: Carboxymethylcellulos 1% OPTH 1 AMP BOTH EYES SCH ×4 (10:01→20:36)
[2022-01-24] MEDS: ENTECAVIR 0.5 MG PO SCH (10:02)
[2022-01-24] MEDS: PTO:Cevimeline 30 mg CAP (NF) PO SCH ×4 (10:02→20:33)
[2022-01-24] MEDS: FESOTERODINE 4 MG PO SCH (10:05)
[2022-01-24 18:40] LABS: ABS Basophils 0.1 10^3/ul (0-0.2); ABS Monocytes 0.3 10^3/ul (0-0.8); Eosinophil % 0.1 %; Hematocrit 40 % (42-52); Hemoglobin 13.9 g/dL (14.0-18.0); Mean Corpuscular HGB Conc 35 g/dL (31-36); Mean Corpuscular Hemoglobin 34 pg (27-31); Mean Corpuscular Volume 98 fL (80-94); Mean Platelet Volume 6.6 fL (7.4-10.4); Nucleated Red Blood Cells % 0.1; Platelet Count 186 10^3/uL (150-450); Red Blood Count 4.11 10^6 /uL (4.18-5.48); Red Cell Distribution Width 14 % (10-15); White Blood Count 10.4 10^3/uL (3.5-10.8)
[2022-01-24 19:30] LABS: Calcium 8.2 mg/dL (8.6-10.3); eGFR CKD-EPI 88.9 (>60)
[2022-01-24] MEDS ORDERED: HYDROmorphone 0.5 MG/0.5 ML SYRINGE IV SLOW PU ONE (21:54)
[2022-01-25] MEDS: DULoxetine DR 60 mg CAP PO SCH (09:23)
[2022-01-25] MEDS: FESOTERODINE 4 MG PO SCH (09:24)
[2022-01-25] MEDS: ENTECAVIR 0.5 MG PO SCH (09:24)
[2022-01-25] MEDS: Carboxymethylcellulos 1% OPTH 1 AMP BOTH EYES SCH ×3 (09:24→17:38)
[2022-01-25] MEDS: CMC:Cyclosporine 0.05% OPHTH (NF) 0.4 ML VIAL BOTH EYES SCH (09:25)
[2022-01-25] MEDS: PTO:Cevimeline 30 mg CAP (NF) PO SCH ×3 (09:25→17:39)
[2022-01-25] MEDS: Sulfamethox/Trimethoprim DS TAB 800/160 mg PO SCH (09:31)
[2022-01-25] MEDS ORDERED: Polyethylene Glycol 3350 17 GM PACKET PO ONE (11:21)
[2022-01-25 12:39] VITALS: BP 150/79
== END 2022-01-25 17:20 | disposition home or self-care (01) | DRG 383 ==
LOC: ED 17:58 → EDHOLD 01-20 03:49 → SUATTDRO 01-20 03:49 → MED 01-21 17:34
PROVIDERS: ADMIT Student in an Organized Health Care Education/Training Program; ATTEND Internal Medicine

== ENCOUNTER 2023-12-02 13:42 | Observation (INO) ==
[2023-12-02] MEDS: HYDROmorphone 1 MG/1 ML SYRINGE IV SLOW PU ONE ×2 (14:38→15:57)
[2023-12-02] MEDS: fentaNYL 100 mcg/2 ml 50 MCG/ML VIAL IV SLOW PU ONE (17:58)
[2023-12-02] MEDS ORDERED: Polyethylene Glycol 3350 17 GM PACKET PO PRN (18:55)
[2023-12-02] MEDS ORDERED: Naloxone Nasal Spray 4 MG/0.1 ML NASAL.SPR INTRANASAL PRN ×2 (21:18→22:18)
[2023-12-02] MEDS: HYDROmorphone 1 MG/1 ML SYRINGE IV SLOW PU PRN (22:07)
[2023-12-03] MEDS: LEMBOREXANT 5 MG PO SCH (04:47)
[2023-12-03 06:09] LABS: ABS Monocytes 0.6 10^3/uL (0.0-1.1); ABS Neutrophils 2.4 10^3/uL (1.5-7.6); Eosinophil % 0.6 %; Hematocrit 29.4 % (38-53); Lymphocyte % 24.1 %; Mean Corpuscular Hgb Conc 33.9 g/dL (31-36); Mean Corpuscular Volume 97.5 fL (80-97); Mean Platelet Volume 6.6 fL (7.5-11.2); Nucleated Red Blood Cells % 0.1 %/100WBC (0.0-0.8); Platelet Count 183 10^3/uL (150-450); Red Blood Count 3.02 10^6/uL (4.06-5.63); Red Cell Distribution Width 14.4 % (12-17)
[2023-12-03 07:04] LABS: Calcium 7.7 mg/dL (8.6-10.3); Creatinine, Serum 1.17 mg/dL (0.67-1.17); Magnesium 1.9 mg/dL (1.9-2.7); Potassium 4.2 mmol/L (3.5-5.0); eGFR CKD-EPI 72.7 (>60)
[2023-12-03] MEDS: CMCS:Entecavir 0.5 mg TAB (NF) PO SCH (08:46)
[2023-12-03] MEDS: Cyclosporine 0.05% OPHTH (NF) 0.4 ML VIAL BOTH EYES SCH (08:47)
[2023-12-03] MEDS: Carboxymethylcellulos 1% OPTH 1 AMP BOTH EYES SCH ×2 (08:47→21:22)
[2023-12-03] MEDS: Polyethylene Glycol 3350 17 GM PACKET PO SCH (08:48)
[2023-12-03] MEDS: Senna TAB 8.6 mg TAB PO SCH (09:40)
[2023-12-03] MEDS ORDERED: Senna TAB 8.6 mg TAB PO PRN (10:09)
[2023-12-03] MEDS: FESOTERODINE 4 MG PO SCH (11:47)
[2023-12-03] MEDS: PTO:Cevimeline 30 mg CAP (NF) PO SCH (11:47)
[2023-12-03 21:38] LABS: Folate 5.43 ng/mL (5.90-24.80)
[2023-12-03 21:42] LABS: Vitamin D Total 25(OH) 12.1 ng/mL (20-50)
[2023-12-04] MEDS: Cholecalciferol (VIT D3) 1,000 unit TAB PO SCH (09:21)
[2023-12-04 13:47] VITALS: BP 144/85
[2023-12-04] MEDS: Cyanocobalamin INJ 1,000 MCG/ML VIAL 1 ML VIAL IM ONE (14:10)
== END 2023-12-04 15:25 | disposition home or self-care (01) ==
LOC: ED 13:42 → EDHOLD 13:42 → SUATTDRO 18:55 → ICU 21:58 → MED 12-03 14:06
PROVIDERS: ADMIT Internal Medicine; ATTEND Internal Medicine

== ENCOUNTER 2023-12-23 12:46 | Observation (INO) ==
[2023-12-23] MEDS: HYDROmorphone 1 MG/1 ML SYRINGE IV SLOW PU ONE ×2 (17:36→23:20)
[2023-12-23] MEDS ORDERED: methylPREDNISolone SOD SUCC 1000 MG ML VIAL IVPB ONE (17:51)
[2023-12-23 19:33] LABS: ABS Lymphocytes 1.1 10^3/uL (1.0-4.8); ABS Monocytes 0.5 10^3/uL (0.0-1.1); ABS Neutrophils 2.1 10^3/uL (1.5-7.6); ABS Nucleated RBC 0.01 10^3/ul; Lymphocyte % 28.9 %; Mean Corpuscular Hemoglobin 33.1 pg (27-33); Mean Corpuscular Hgb Conc 34.3 g/dL (31-36); Mean Corpuscular Volume 96.6 fL (80-97); Nucleated Red Blood Cells % 0.2 %/100WBC (0.0-0.8); Platelet Count 301 10^3/uL (150-450); Red Blood Count 3.31 10^6/uL (4.06-5.63); White Blood Count 3.7 10^3/uL (3.6-10.2)
[2023-12-23] MEDS: methylPREDNISolone SOD SUCC 1,000 MG in NS 0.9% 250 ml 250 ML IVPB ONE (20:01)
[2023-12-23 20:13] LABS: Albumin/Globulin Ratio 0.4 (1-3); Calcium 8.1 mg/dL (8.6-10.3); Creatinine, Serum 0.99 mg/dL (0.67-1.17); Globulin 6.8 g/dL (2-4); Potassium 4.3 mmol/L (3.5-5.0); Total Bilirubin 0.1 mg/dL (0.2-1.0); Total Protein 9.8 g/dL (6.4-8.9); eGFR CKD-EPI 88.9 (>60)
[2023-12-24] MEDS ORDERED: Naloxone Nasal Spray 4 MG/0.1 ML NASAL.SPR INTRANASAL PRN (00:58)
[2023-12-24] MEDS: HYDROmorphone 1 MG/1 ML SYRINGE IV SLOW PU PRN (04:00)
[2023-12-24] MEDS ORDERED: methylPREDNISolone SOD SUCC 1,000 MG in NS 0.9% 250 ml 250 ML IVPB SCH ×2 (09:00→18:00)
[2023-12-24] MEDS: Enoxaparin 40 MG/0.4 ML SYR SUBCUT SCH (11:03)
[2023-12-24] MEDS: PTO:Cevimeline 30 mg CAP (NF) PO SCH (12:27)
[2023-12-24] MEDS: FESOTERODINE 4 MG PO SCH (12:32)
[2023-12-24] MEDS: CMCS: Entecavir 0.5 mg TAB (NF) PO SCH (14:34)
[2023-12-24] MEDS: Ondansetron ODT 4 mg TAB 4 MG TAB SL PRN (21:53)
[2023-12-24] MEDS: LEMBOREXANT 5 MG PO SCH (21:54)
[2023-12-24] MEDS: CMC:Cyclosporine 0.05% OPHTH (NF) 0.4 ML VIAL BOTH EYES SCH (22:00)
[2023-12-25 06:23] LABS: ABS Lymphocytes 1.2 10^3/uL (1.0-4.8); ABS Monocytes 0.7 10^3/uL (0.0-1.1); ABS Neutrophils 4.5 10^3/uL (1.5-7.6); Hematocrit 30.8 % (38-53); Hemoglobin 10.5 g/dL (13.2-16.3); Lymphocyte % 19.1 %; Mean Corpuscular Hemoglobin 32.8 pg (27-33); Mean Corpuscular Hgb Conc 33.9 g/dL (31-36); Mean Corpuscular Volume 96.7 fL (80-97); Mean Platelet Volume 7.2 fL (7.5-11.2); Nucleated Red Blood Cells % 0.1 %/100WBC (0.0-0.8); Platelet Count 271 10^3/uL (150-450); Red Blood Count 3.19 10^6/uL (4.06-5.63); White Blood Count 6.5 10^3/uL (3.6-10.2)
[2023-12-25 07:14] LABS: C Reactive Protein 12.95 mg/L (<8.01); Creatinine, Serum 0.99 mg/dL (0.67-1.17); Phosphorus 3.8 mg/dL (2.5-5.0); Potassium 4.4 mmol/L (3.5-5.0); eGFR CKD-EPI 88.9 (>60)
[2023-12-25 09:46] LABS: Erythrocyte Sed Rate > 120 mm/Hr (0-19)
[2023-12-25] MEDS: Carboxymethylcellulos 1% OPTH 1 AMP BOTH EYES PRN (10:08)
[2023-12-26 06:55] LABS: ABS Lymphocytes 1.2 10^3/uL (1.0-4.8); ABS Monocytes 0.5 10^3/uL (0.0-1.1); ABS Neutrophils 2.8 10^3/uL (1.5-7.6); Eosinophil % 0.2 %; Hematocrit 29.9 % (38-53); Hemoglobin 10.4 g/dL (13.2-16.3); Lymphocyte % 27.3 %; Mean Corpuscular Hemoglobin 33.4 pg (27-33); Mean Corpuscular Hgb Conc 34.8 g/dL (31-36); Mean Platelet Volume 6.6 fL (7.5-11.2); Platelet Count 243 10^3/uL (150-450); Red Blood Count 3.12 10^6/uL (4.06-5.63); Red Cell Distribution Width 13.9 % (12-17); White Blood Count 4.6 10^3/uL (3.6-10.2)
[2023-12-26 08:24] LABS: Calcium 8.1 mg/dL (8.6-10.3); Creatinine, Serum 0.96 mg/dL (0.67-1.17); eGFR CKD-EPI 92.2 (>60)
[2023-12-26 10:27] VITALS: BP 156/96
[2023-12-26 11:21] LABS: Erythrocyte Sed Rate > 120 mm/Hr (0-19)
== END 2023-12-26 15:20 | disposition home or self-care (01) ==
LOC: EDHOLD 12:46 → ED 12:46 → SUATTDRO 22:19 → MED 12-24 09:02
PROVIDERS: ADMIT Internal Medicine; ATTEND Internal Medicine